=== PATIENT | male | born 1960 | race Caucasian/White ===

== ENCOUNTER → 2017-05-29 14:37 | Outpatient (CLI) | payer OTHER, SELFPAY ==
--- NOTE | 2017-05-29 14:42 | RAD_ITS ---
STUDY: X-RAY CHEST REASON FOR EXAM: Male, 56 years old. Pain in the chest and clavicle area times one week TECHNIQUE: PA and lateral views of the chest. COMPARISON: None. FINDINGS: Mildly elevated right hemidiaphragm. The lungs are clear and expanded. There is no demonstrated pleural abnormality. Normal size heart. Normal mediastinum and maru. Normal visualized pulmonary arteries. Normal visualized aortic arch and descending thoracic aorta. Normal visualized thoracic spine. Normal visualized ribs, clavicles, and shoulders. There is no demonstrated abnormality of the visualized soft tissue structures of the upper abdomen. RAD/Chest PA and Lateral IMPRESSION: No acute cardiopulmonary disease Electronically Signed: Radames Hung DO at 13:34 EDT Tel , Service support ,
--- NOTE | 2017-05-29 14:58 | RAD_ITS ---
STUDY: X-RAY - LEFT CLAVICLE REASON FOR EXAM: Male, 56 years old. Chest/clavicle pain for one week. TECHNIQUE: 2 view(s) of the clavicle. COMPARISON: None. FINDINGS: Normal clavicle. There is borderline degenerative arthrosis of the acromioclavicular joint without inferior osseous prominence. Normal visualized sternoclavicular articulation. Normal visualized pulmonary apex. 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 Electronically Signed: Franklin Urban MD at 19:29 EDT , Service support ,
[2017-05-29 17:09] LABS: Alkaline Phosphatase 105 U/L (45-117)
== END ==
PROVIDERS: Family Provider Family Medicine; PCP Family Medicine; Visit Provider Family Medicine
DX: M89.8X1 Other specified disorders of bone, shoulder (principal)
CPT/HCPCS: 36415; 71046; 73000; 84075

== ENCOUNTER → 2017-11-05 06:19 | Outpatient (CLI) | payer OTHER, SELFPAY ==
--- NOTE | 2017-11-05 16:58 | STRESSREP ---
Stress Test Report Exercise myocardial perfusion stress test. 56-year-old man with a history of chest pain. Medications: Losartan hydrochlorothiazide Aleve. Stress protocol: Resting EKG demonstrates normal sinus rhythm with a rate of 63 bpm normal intervals and noted resting blood pressure is 110/78 mmHg. Patient exercised according to regular Bill protocol for total duration of 7 minutes and 16 seconds maximum heart rate was 150 bpm which was 90% of maximum predicted heart rate. The maximum workload was 8.9 metabolic equivalents. The patient maintained sinus rhythm throughout the recording. At rest there were upsloping changes noted at peak exercise upsloping EKG changes were noted less than 1 mm with no evidence of depression suggest ischemia the resting blood pressure is 110/78 peak blood pressure 164/80 mmHg. No clinical angina was noted. Myocardial perfusion protocol. 14.4 mCi of technetium 99m sestamibi was injected at rest. Patient exercised according to regular Bill protocol for 7 minutes and 16 seconds attaining 90% of maximum predicted heart rate. Peak exercise 44.7 mCi of technetium 99m sestamibi was injected stress images were obtained stress and rest images were reconstructed and compared in the short axis vertical and horizontal long axis. Gated images were also obtained Perfusion SPECT analysis: Review of the stress images demonstrate normal uptake of tracer noted on his myocardium the resting images similarly demonstrate normal uptake of tracer noted on his myocardium. No areas of reversibility and is just ischemia no previous infarct is noted. Gated SPECT analysis: The gated ejection fraction is noted to be 66%. No wall motion abnormalities are present. Conclusion: Normal exercise myocardial perfusion stress test at a high workload. No clinical angina noted. Good functional capacity. No ischemia present.
== END ==
PROVIDERS: Family Provider Family Medicine; PCP Family Medicine; Visit Provider Family Medicine
DX: R06.09 Other forms of dyspnea (principal)
CPT/HCPCS: 78452; 93017; A9500; A4216

== ENCOUNTER → 2017-12-10 09:04 | Outpatient (CLI) | payer OTHER, SELFPAY ==
--- NOTE | 2017-12-10 09:11 | RAD_ITS ---
STUDY: X-RAY - LUMBOSACRAL SPINE REASON FOR EXAM: Male, 56 years old. Fusion surgery 10 years ago. Fall a couple weeks ago now with low back and bilateral leg pain getting worse. TECHNIQUE: 6 view(s) of the lumbosacral spine including lateral flexion and extension views. COMPARISON: None FINDINGS: Normal lumbar lordosis. There is no substantial scoliosis. There is normal alignment of the vertebrae. Postoperative changes of posterior lumbar fusion L4-L5. Bilateral rods, pedicle screws and prosthetic disks. There may be 1 mm of anterolisthesis L3 on L4 in flexion. Otherwise no significant motion in flexion or extension. Normal vertebral bodies and endplates. Normal disc space heights. Normal bilateral sacral ala, sacroiliac joints, and visualized sacrum. Normal visualized soft tissue structures. RAD/L/S Spine Comp/w Bending Views IMPRESSION: Postoperative changes of posterior lumbar fusion L4-L5. Possible minimal anteriorlisthesis L3 on L4 in flexion. Electronically Signed: Deni Thornton MD at 3:33 EDT , Service support ,
== END ==
PROVIDERS: Family Provider Family Medicine; PCP Family Medicine
DX: M96.1 Postlaminectomy syndrome, not elsewhere classified (principal); M54.17 Radiculopathy, lumbosacral region
CPT/HCPCS: 72114

== ENCOUNTER → 2017-12-31 12:51 | Outpatient (CLI) | payer OTHER, SELFPAY ==
[2017-12-31 13:01] LABS: Mucous, Urine 0 SEEN /hpf (<or=2+); Red Blood Cells-Urine 0 SEEN /hpf (0-5); Squamous Epithelial Cells - UA 0 SEEN /hpf (0-5)
[2017-12-31 13:04] LABS: Color, Urine Yellow (Yellow); Glucose, Dipstick Normal (Normal); Ketone-Dipstick Negative (Negative); Leukocyte Esterase-Dipstick 25 /ul (Negative); Nitrite-Dipstick Negative (Negative); Occult Blood-Urine Negative /ul (Negative); Protein-Dipstick Negative (Negative); Urine Bilirubin Dipstick Negative (Negative); Urine Clarity Clear (Clear); Urine Urobilinogen Normal (Normal); Urine pH 6.5 (5.0 - 8.0)
[2017-12-31 13:22] LABS: Bacteria RARE /hpf (None Seen); White Blood Cells 0-5 SEEN /hpf (0-5)
== END ==
PROVIDERS: Family Provider Family Medicine; PCP Family Medicine; Referring Provider Nurse Practitioner Family; Visit Provider Nurse Practitioner Family
DX: R10.9 Unspecified abdominal pain (principal); R30.0 Dysuria
CPT/HCPCS: 81001; 87077; 87086; 87088; 87186

== ENCOUNTER → 2018-02-04 07:28 | Outpatient (CLI) | payer OTHER, SELFPAY ==
[2018-01-22 13:05] VITALS: BMI 34.7
--- NOTE | 2018-02-04 07:32 | CT_ITS ---
STUDY: CT MAXILLOFACIAL SINUSES REASON FOR EXAM: Male, 57 years old. Chronic ethmoid sinusitis. RADIATION DOSAGE (If Supplied By Facility): CTDIvol = ( 33.06 ) mGy, DLP = ( 916.49 ) mGycm TECHNIQUE: The patient was scanned in a multi detector CT scanner. High resolution axial imaging was performed without the administration of intravenous contrast material. Sagittal and coronal images were reconstructed. Individualized dose optimization techniques were used for this CT. COMPARISON: None. FINDINGS: FRONTAL SINUSES: Normal aeration, without mucosal inflammatory disease. ETHMOIDAL SINUSES: Normal aeration, without mucosal inflammatory disease. MAXILLARY SINUSES: There is opacification of the left maxillary sinus with ossification within it suggestive of chronic maxillary sinusitis. Mucosal thickening along the inferior aspect of the right maxillary sinus. SPHENOIDAL SINUSES: Normal aeration, without mucosal inflammatory disease. There is compromise of the left maxillary infundibulum due to the mucosal thickening. Normal bilateral middle turbinates. Normal bilateral inferior turbinates. Normal midline nasal septum. There is patency of the bilateral nasal airways. The visualized osseous structures are normal. The visualized bilateral orbital contents are normal. CT/Sinus/Facial Bone IMPRESSION: Complete opacification of the left maxillary sinus suggestive of chronic sinusitis mucosal thickening of the right maxillary sinus. Electronically Signed: Alphonso Gil MD at 14:40 EST Tel [phone], Service support ,
--- OUTSIDE RECORDS SUMMARY | 2018-03-23 05:36 | XMS RPT_ITS ---
:1960 Author Organization [facility] Support Name Relationship Address Phone [facility] Unavailable [address] + [place] [address] ANDREA BEAVERS Unavailable [address] + [place] [address] Andrea Beavers Unavailable Unavailable + [facility] Unavailable [address] + [place] [address] ANDREA BEAVERS Unavailable [address] + [place] [address] [facility] Unavailable [address] + [place] [address] ANDREA BEAVERS Unavailable [address] + [place] [address] [facility] Unavailable [address] + [place] [address] ANDREA BEAVERS Unavailable [address] + [place] [address] [facility] Unavailable [address] + [place] [address] ANDREA BEAVERS Unavailable [address] + [place] [address] [facility] Unavailable [address] + [place] [address] ANDREA BEAVERS Unavailable [address] + [place] [address] [facility] Unavailable [address] + [place] [address] JAKY BEAVERSNN Unavailable [address] + [place] [address] [facility] Unavailable [address] + [place] [address] JAKY BEAVERSNN Unavailable [address] + [place] [address] [facility] Unavailable [address] + [place] [address] JAKY BEAVERSNN Unavailable [address] + [place] [address] [facility] Unavailable [address] + [place] [address] ANDREA BEAVERS Unavailable Unavailable + [facility] Unavailable [address] + [place] [address] ANDREA BEAVERS Unavailable Unavailable + [facility] [place] . + ., [place] . [place]REA BEAVERS Unavailable . + ., [place] . [facility] [place] . + ., [place]REA BEAVERS Unavailable . + ., [place] [facility] [place] . + ., [place] . ANDREA BEAVERS Unavailable Unavailable [phone] [facility] [place] . + ., [place] ANDREA BEAVERS Unavailable . [phone] ., [place] . Care Team Providers Name Role Kathryn HERNANDEZ DAVID GERBER Attending Unavailable PROVIDER, UNKNOWN Referring Unavailable Erlin Bella Primary Care Unavailable Ashwin Herbert Attending Unavailable Erlin Bella Primary Care Unavailable Ashwin Herbert Attending Unavailable Ashwin Herbert Referring Unavailable Erlin Bella Primary Care Unavailable Kush Go HAND SHOE CUTTER-C Attending Unavailable GoKush olivarez HAND SHOE CUTTER-C Referring Unavailable Brown, Erlin Primary Care Unavailable GoKush HAND SHOE CUTTER-C Attending Unavailable Brown, Erlin Referring Unavailable EDIE GILBERT Attending Unavailable EDIE GILBERT Referring Unavailable Brown, Erlin Primary Care Unavailable Brown, Erlin Attending Unavailable Brown, Erlin Referring Unavailable Brown, Erlin Primary Care Unavailable Brown, Erlin Attending Unavailable Brown, Erlin Referring Unavailable Brown, Erlin Primary Care Unavailable Christa Kiser Attending Unavailable Brown, Erlin Referring Unavailable Brown, Erlin Primary Care Unavailable Herbert, Ashwin Attending Unavailable Herbert, Ashwin Referring Unavailable Brown, Erlin Primary Care Unavailable Brown, Erlin Attending Unavailable Brown, Erlin Referring Unavailable Brown, Erlin Primary Care Unavailable Brown, Erlin Attending Unavailable Brown, Erlin Primary Care Unavailable GoKush olivarez HAND SHOE CUTTER-C Attending Unavailable Brown, Erlin Referring Unavailable Silvestre Ross Attending Unavailable Brown, Erlin Referring Unavailable Kalpesh Vaca Attending Unavailable DeHorta, Ashwin Referring Unavailable Brown, Erlin Attending Unavailable Brown, Erlin Referring Unavailable PROBLEMS PROBLEMS DATE TYPE CONDITION / CODE ATTENDING STATUS SOURCE 03/06/2018 Admitting Spondylolysis, INKROTT, Active [facility] Diagnosis lumbar region / [facility]ID System M43.06(ICD-10) [facility] Repository 03/06/2018 Admitting Low back pain / INKROTT, Active [facility] Diagnosis M54.5(ICD-10) DAVID System [facility] Repository 03/06/2018 Admitting Arthrodesis status / INKROTT, Active [facility] Diagnosis Z98.1(ICD-10) [facility] System [facility] Repository 03/12/2018 Unknown Z01.810 - Encounter Kalpesh Vaca Active [facility] for preprocedural [facility] Hospital examination / Repository Z01.810(ICD-10) 01/22/2018 Unknown J32.9 - Chronic Go, Kush Active [facility] sinusitis, HAND SHOE CUTTER-C Community unspecified / Hospital J32.9(ICD-10) Repository 12/31/2017 Unknown R10.9 - Unspecified Go, Kush Active [facility] abdominal pain / HAND SHOE CUTTER-C Community R10.9(ICD-10) Hospital Repository 12/31/2017 Unknown R30.0 - Dysuria / Go, Kush Active [facility] R30.0(ICD-10) HAND SHOE CUTTER-C Community Hospital Repository 12/31/2017 Unknown N20.0 - Calculus of Kush Go Active [facility] kidney / HAND SHOE CUTTER-C [facility] N20.0(ICD-10) Hospital Repository 12/10/2017 Unknown M96.1 - EDIE GILBERT Active [facility] Postlaminectomy [facility] syndrome, not Hospital elsewhere classified Repository / M96.1(ICD-10) 12/10/2017 Unknown M54.17 - EDIE GILBERT Active [facility] Radiculopathy, [facility] lumbosacral region / Hospital M54.17(ICD-10) Repository 12/03/2017 Unknown R06.09 - Other forms Vandana, Silvestre Active [facility] of dyspnea / Community R06.09(ICD-10) Hospital Repository 05/29/2017 Unknown M89.8X1 - Other Erlin Bella Active [facility] specified disorders Community of bone, shoulder / Hospital M89.8X1(ICD-10) Repository PROCEDURES PROCEDURES No Procedure Records FoundRESULTS RESULTS PT D/C SUMMARY (1) Observed: 03/11/2018 Status: F Source: [place] 9:43 AM [facility] REPOSIT[facility] [address] [place] [address] / REHABILITATION SERVICES DISCHARGE SUMMARY MR#: [id number] Acct: [id number] Name: CHI GONZALEZ Rep #: [id number] : 1960 57 From: Ashwin Jj DPT, OCS, CSCS Referring DrDean: Erlin Bella DO Status: REG RCR Insurance: [employer] SELF PAY INSURANCE HP - PT D/C Summary It has been my pleasure to treat CHI GONZALEZ under orders from Erlin Bella DO, for the diagnosis of LB radiculopathy. for a total of 10 visit(s). Discharge Date: 03/07/18 Please see the following information for a summary of their discharge status. - Subjective Subjective: Will have CT scan results soon. Feels more flexible from the water btu numbness in B legs from knees down has not changed at all. Pain is 5- 6/10 in LB constantly. About the same as he was but does feel more flexible. sleep is not great, wakes up every couple hours. 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 Basic aDLs are OK, has to be careful walking on uneven gorund. - Pain LBP Pain Intensity (Out of 10): 6 BLEs Pain Intensity (Out of 10): 5 - Overall Improvement % Improvement: 0 - Objective Objective/Function: 4-/5 hs and knee ext strength B, 4/5 ankle DF. Steps are reciprocal without rail but weak. OVERALL PATIENT BACK ROM SLIGHTLYT BETTER BUT HAS NOT HELPED WEAKNESS, PAIN OR NUMBNESS. - Goals Goal 1:: Patient show only moderate limitation in LB ROM without increased pain Goal Progress: Goal Met Goal 2:: Patient show 4/5 stregnth in LE and feel 50% stronger overall. Goal Progress: Not Progressing Goal 3:: Sleep withotu waking at night due to pain. Goal Progress: Not Progressing Goal 4:: I approp HEP to minimize future problems or fulfill requirement for next approp medical step. Goal Progress: Goal Met, stretching. - Plan Plan: D/C, BACK TO DOCTOR FOR NEXT STEP. - D/C Information Discharge Comments: Recommend back to doctor for next step. If there are questions or concerns regarding this patient's physical therapy, please feel free to call me at [phone]. Thank you for the referral of this patient. Sincerely, Ashwin Jj DPT, OCS, CSCS <Electronically signed by Ashwin Jj DPT, MALIHA, CSCS> 03/11/18 0943 CC: Erlin Bella DO EBG Signed CT SPINE LUMBAR W/O Observed: 03/07/2018 Status: F Source: [employer] 10:36 AM SYSTEM REPOSITORY Patient Name: CHI GONZALEZ CT Exam Date/Time 03/06/2018 13:27:[address] Spine Lumbar w/o Contrast Ordering Physician MD MARY, DAVID GERBER Accession Number [id number] CPT4 Codes 48880 () Reason For Exam Lower back Pain Report Examination: CT lumbar spine Clinical Indication: Low back pain, history of surgery, lumbar radiculopathy, leg numbness Comparison: None Findings: Serial axial 1 mm images obtained through the lumbar spine without contrast. Coronal, sagittal and axial images reconstructed. Normal bone mineralization. No evidence of fracture or spondylolisthesis. There is minimal lumbar levocurvature, less than 5 degrees. Transpedical screws and posterior fusion rods, intact seen at the L4-L5 level. There is evidence of discectomy and disc space grafting. Graft is incompletely mature. There is no solid osseous bridging along the disc space. There is partial osseous bridging seen along the right-sided facets although at least partial pseudarthrosis persists along the left-sided facets. No evidence of hardware loosening. There is laminectomy defect. There is unilateral right-sided spondylolysis with pars interarticularis defect. Left-sided pars grossly intact. There is no evidence of spinal canal stenosis. Suggestion of trace amount of annular disc bulge but no CT evidence of significant disc protrusion. Disc graft at L4-L5 does extend to the thecal sac anteriorly causing minimal mass effect on the right lateral recess. There is no significant foraminal narrowing. Atherosclerotic calcification abdominal aorta and iliac arteries. Impression: 1. Postsurgical changes posterior hardware fusion and laminectomy L4-L5 with discectomy and disc space grafting. Incomplete incorporation of the graft, incomplete bony fusion. No evidence of hardware failure. 2. Unilateral right-sided spondylolysis of L5. No significant associated listhesis. This is below the level of hardware. 3. Minimal L4-L5 graft retropulsion at the lateral recesses causing minimal mass effect on the right. Report Dictated on Final Dictated: 03/07/2018 10:36 am Dictating Physician: MD MULLER ANTHONY J Signed Date and Time: 03/07/2018 10:46 am Signed by: MD MULLER ANTHONY J Transcribed Date and Time: 03/07/2018 10:36 12 LEAD ELECTROCARDIOGRAM Observed: 02/19/2018 Status: F Source: [place] 2:52 PM [facility] REPOSITORY [facility] Cardiovascular Services [address] [place] [address] 12 Lead EKG 02/14/18 0638 MR#: [id number] Acct: [id number] Name: CHI GONZALEZ Rep #: [id number] : 1960 57 From: Kalpesh Vaca MD Attending Dr: Ashwin Herbert MD Status: DEP [facility] Ordering Dr: Ashwin Herbert MD Date: 02/14/18 Location: [facility] Sex: M C Admitted: Test Reason : PRE OP Blood Pressure : / mmHG Vent. Rate : 075 BPM Atrial Rate : 075 BPM P-R Int : 168 ms QRS Dur : 084 ms QT Int : 378 ms P-R-T Axes : 029 -10 -01 degrees QTc Int : 422 ms Normal sinus rhythm Normal ECG No previous ECGs available Confirmed by KALPESH VACA ([id number]), offline editor KARSTEN TRONCOSO ([id number]) on 02/19/2018 2:52:01 PM Referred By: Ashwin Herbert Confirmed By:KALPESH VACA 02/19/18 1452 Date Kalpesh Vaca MD CC: Erlin Bella DO; Ashwin Herbert MD Signed MISCELLANEOUS SPECIMEN Observed: 02/14/2018 Status: F Source: [facility] 7:30 AM [facility] RE[facility] Patient: CHI GONZALEZ : 1960 (57/M) Acct Num: [id number] Phys: Ashwin Herbert MD Unit Num: [id number] Loc: [facility] Specimen: [id number] Received: 02/14/18914 Spec Type: [facility] TISSUES 1 TISSUES: A. Maxilla, NOS B. Maxilla, NOS GROSS DESCRIPTION A - Received in fixative is one container labeled with the patient's name and designated left sinus contents. The specimen consists of multiple fragments of hemorrhagic soft tissue mixed with fragments of bone that in aggregate measure 5 x 3 x 0.3 cm. The entire specimen is submitted in two cassettes after decalcification. B - Received in fixative is one container labeled with the patient's name and designated right sinus contents. The specimen consists of multiple fragments of hemorrhagic soft tissue mixed with fragments of bone that in aggregate measure 3 x 2.5 x 0.3 cm. The entire specimen is submitted in one cassette after decalcification. / SJ:glenroy 02/14/18 TC:3 CPT: 96739 x2, 54899 x2 HEADER OPERATION: Endoscopic sinus nasal maxillary antrostomy with navigation PRE-OP DIAGNOSIS: Chronic maxillary sinusitis TISSUE SUBMITTED: A - Left sinus contents, B - Right sinus contents MICROSCOPIC DESCRIPTION Slides are reviewed. MICROSCOPIC DIAGNOSIS A. Left sinus contents, excision: Consistent with chronic sinusitis. Fragments of bone with no significant pathologic change. B. Right sinus contents, excision: Consistent with chronic sinusitis. Fragments of bone with no significant pathologic change. AM:glenroy 02/21/18 Signed Chad Kingsley, 02/21/18 <signature on file> Performed By: #### PMISC #### [facility] [address] [place], [address] INITAL EVALUATION (1) Observed: 02/14/2018 Status: F Source: [place] - PT 6:45 AM [facility] REPOS[facility] [address] [place] [address]. [address] [place] [address] Fax REHABILITATION SERVICES INITIAL EVALUATION MR#: [id number] Acct: [id number] Name: CHI GONZALEZ Rep #: [id number] : 1960 57 From: Ashwin Jj DPT, OCS, CSCS Referring Dr.: Erlin Bella DO Status: REG RCR Insurance: [employer] SELF PAY INSURANCE Patient's Visit Information CHI GONZALEZ is a 57 year old M referred to Physical Therapy by Erlin Bella DO with a diagnosis of LB radiculopathy.. Date of Evaluation: 02/12/18 Physical Therapist: Ashwin Jj DPT, OCS, CSCS - Visit Plan Frequency: 2-3x /Week Duration: 4-6 Weeks Plan: 2-3x/week for 4-6 weeks for: LE adn core strength. HS and quad and gastroc stretching. LB ROM - Subjective Findings: Done MRI and has 2 cysts adn bulging discs adn needs surgery...has to do this first. L3/L4 uis the problem. Has h/o fusion L4/5 10 years ago. Was doing OK until a year and a half ago when he got numbness in legs and feet insidiously. Has LBP in middle and to lower back. Gets to 7/10 constant. Gets worse to 9/10 with bending and lifting and carrying. Sleep is not good due to pain and hasn't been for a year. Has seen chiropractor and has not helped with numbness in legs. 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 Worse after work. Standing and sitting. Stands to zaria and sits to foil. Basic ADLs are OK, avoids housework due to LBP. Gardening and yard work are hobbies and has had to stop them due to LBP. Had to stop bike riding. Trouble knowing when urinating stops and doctor aware of this. - Pain LBP Pain Intensity (Out of 10): 7 Pain Intensity Range: 7, 9 Comment: had pain for 12 years - Objective R wrist fused solid from previous injury. Walks slowly but I, trasnfers I with UE. Rolls slow but able. Posture is hunched forward adn flat lordosis in lumbar and c/s. L/S aROM ext is max limited adn centrall pain. B SB mod limited. Flexion is max limited and hesitant. Sensation is diminished to gross light touch in B LE form knees down. reflexes patella and achilles 0/3 B. Weakness present in DF, knee ext at 3+ and knee flexion at 4- B, Patient has hard time breonna any of these muscles for any length of time. Very weka. Steps require rail and show weakness L >R with some minor trendelenberg. + slump and SLR for posterior pain on R side into LB. NE on numbness or strength today with ROM testing. - Goals Goal 1:: Patient show only moderate limitation in LB ROM without increased pain Goal Time Frame: 4-6 Weeks Goal 2:: Patient show 4/5 stregnth in LE and feel 50% stronger overall. Goal Time Frame: 4-6 Weeks Goal 3:: Sleep withotu waking at night due to pain. Goal Time Frame: 4-6 Weeks Goal 4:: I approp HEP to minimize future problems or fulfill requirement for next approp medical step. Goal Time Frame: 4-6 Weeks - Rehabilitation Potential Physical Therapy Diagnosis: LBP andd radiculopathy. Rehabilitation Potential: Poor - Anticipated Interventions Patient/Client Instruction: Educate patient on: Condition, Plan of Care For the Purpose of:: To decrease pain, To increase tolerance to activity/condition/position, To improve ability of physical actions for home/community/work/leisure Therapeutic Exercise to Include: Strength training, Flexibilty training, In an aquatic setting, Passive ROM, Active ROM, Dynamic Lumbar Stabilization For the Purpose of:: To increase ROM, To improve muscle performance and motor function, To increase tolerance to activity/condition/position, To improve ability of physical actions for home/community/work/leisure Thank you for the opportunity to evaluate your patient. For Medicare and Medicare HMO plans, please review the plan of care and approve it. It will need to be FAXED BACK to us at [phone] for Medicare purposes. For Medicare only, by signing this I certify the plan of care. Please let me know if there are questions or concerns regarding this plan of care. Physician Signature: Date: <Electronically signed by Ashwin Jj DPT, OCS, CSCS> 02/14/18 0645 CC: Erlin Bella DO EBG Signed BASIC METABOLIC Collected: 02/14/2018 Status: F Source: [facility] PROFILE (BMP) 6:15 AM [facility] REPOSIT[facility] TYPE CODE TESTS RESULT OUT OF RANGE REFERENCE UNITS LAB L501.0100 74-106 mg/dL High GLU 112 Result Comment: Fasting Glucose result from 100 to 125 mg/dL suggests IMPAIRED HOMEOSTASIS per A.D.A. criteria. Please note revised GLUCOSE reference range effective 2017. LAB L501.1000 7-18 mg/dL Normal BUN 18 LAB L501.1100 0.70-1.30 mg/dL Normal CREAT,SERUM 0.94 Result Comment: The validity of the calculated GFR AND GFRAA in patients over 70 years has not been determined. Clinical correlation is essential. LAB L501.1110 >60 mL/min Normal EST GFR 88 Result Comment: Non- GFR Calc LAB L501.1115 >60 mL/min Normal EST GFR - AA 107 Result Comment: GFR Calc LAB L501.1255 ml/min Normal Estimated CRCL 93.46 LAB L501.1300 10-20 RATIO Normal BUN/CRE 19.2 LAB L501.2200 8.5-10 mg/dL Normal .1 CA 8.5 LAB L501.5300 136-14 mmol/L Normal 5 NA 142 LAB L501.5600 3.5-5. mmol/L Normal 1 K 3.9 Result Comment: Moderate Hemolysis, Result may be falsely increased. LAB L501.5900 98-107 mmol/L High CL 109 LAB L501.6100 21.0-32.0 mmol/L Normal CO2 24.0 LAB L501.6200 5-15 Normal 9 GAP Performed By: #### L500.2500 #### [facility] [address] [place], [address] SINUS/FACIAL BONE Observed: 02/04/2018 Status: F Source: [place] 7:32 AM [facility] REPOS[facility] Imaging Services [address] [place] [address] Sinus/Facial Bone MR#: [id number] Acct: [id number] Name: CHI GONZALEZ Rep #: [id number] : 1960 M 57 From: Alphonso Gil MD PCP: Erlin Bella DO Status: REG CLI Study: Sinus/Facial Bone Date of Exam: 02/04/18 Exam# [id number] Ordering Dr: Ashwin Herbert MD STUDY: CT MAXILLOFACIAL SINUSES REASON FOR EXAM: Male, 57 years old. Chronic ethmoid sinusitis. RADIATION DOSAGE (If Supplied By Facility): CTDIvol = ( 33.06 ) mGy, DLP = ( 916.49 ) mGycm TECHNIQUE: The patient was scanned in a multi detector CT scanner. High resolution axial imaging was performed without the administration of intravenous contrast material. Sagittal and coronal images were reconstructed. Individualized dose optimization techniques were used for this CT. COMPARISON: None. FINDINGS: FRONTAL SINUSES: Normal aeration, without mucosal inflammatory disease. ETHMOIDAL SINUSES: Normal aeration, without mucosal inflammatory disease. MAXILLARY SINUSES: There is opacification of the left maxillary sinus with ossification within it suggestive of chronic maxillary sinusitis. Mucosal thickening along the inferior aspect of the right maxillary sinus. SPHENOIDAL SINUSES: Normal aeration, without mucosal inflammatory disease. There is compromise of the left maxillary infundibulum due to the mucosal thickening. Normal bilateral middle turbinates. Normal bilateral inferior turbinates. Normal midline nasal septum. There is patency of the bilateral nasal airways. The visualized osseous structures are normal. The visualized bilateral orbital contents are normal. CT/Sinus/Facial Bone IMPRESSION: Complete opacification of the left maxillary sinus suggestive of chronic sinusitis mucosal thickening of the right maxillary sinus. Electronically Signed: Alphonso Gil MD at 14:40 EST Tel [phone], Service support , CC: Erlin Bella DO; Ashwin Herbert MD Electric Cell Tender: Signed INTERNAL MEDICINE Observed: 01/23/2018 Status: F Source: [place] OFFICE VISIT 9:05 AM [facility] [address] [place] [address] [address] [place] [address] OFFICE VISIT Date of Service: 01/22/18 MR#: [id number] Acct: [id number] Name: CHI GONZALEZ Marvin Rep #: [id number] : 1960 Provider: Kush Go NP Age/Sex: 57/M Location: [facility].WARN[facility] Status: Signed Intake Vital Signs01/22/18 Height 5 ft 11 in Intake Visit Reasons: SINUS INF Chief Complaint: Sinus Inf. and coughing up blood Is patient in pain?: Yes (both legs, lower) Allergies No Known Allergies Allergy (Unverified 12/31/17 11:10) Medications acetaminophen 500 mg capsule 500 mg PO Q6H PRN 05/29/17 [History Confirmed 01/22/18] cetirizine 10 mg capsule 10 mg PO QDAY 05/29/17 [History Confirmed 12/31/17] losartan 100 mg-hydrochlorothiazide 12.5 mg tablet 1 tab PO QDAY 05/29/17 [History Confirmed 01/22/18] lysine 500 mg tablet 500 mg PO QDAY 05/29/17 [History Confirmed 01/22/18] naproxen sodium 220 mg tablet 220 mg PO BID 05/29/17 [History Confirmed 01/22/18] pyridoxine (vitamin B6) 100 mg tablet 100 mg PO ONCE 05/29/17 [History Confirmed 01/22/18] ascorbic acid (vitamin C) 500 mg capsule mg PO cap 12/31/17 [History Confirmed 12/31/17] tamsulosin 0.4 mg capsule 0.4 mg PO DAILY #30 cap 12/31/17 [Rx Confirmed 01/22/18] ashwagandha PO 01/22/18 [History Confirmed 01/22/18] benzonatate 100 mg capsule 100 mg PO TID PRN #30 cap 01/22/18 [Rx Confirmed 01/22/18] budesonide-formoterol HFA 80 mcg-4.5 mcg/actuation aerosol inhaler 2 puff INHALATION BID PRN g 01/22/18 [History] fluticasone 50 mcg/actuation nasal spray,suspension 2 spray INTRANASAL DAILY #15.8 g 01/22/18 [Rx Confirmed 01/22/18] white mulberry PO 01/22/18 [History Confirmed 01/22/18] PFSH Medical History History of pneumonia (Chronic) Asthma (Chronic) Seasonal allergies (Chronic) Surgical History History of appendectomy (Acute) History of carpal tunnel repair (Acute) History of hand surgery (Acute) History of lumbar fusion (Acute) Family History Father Asthma Bone cancer Myocardial infarction Mother Myocardial infarction Hypertension Grandmother Myocardial infarction Grandmother Myocardial infarction Grandfather Myocardial infarction CVA (cerebral vascular accident) Brother Myocardial infarction Hypertension Grandfather Parkinson disease Social History Smoking Status: Never smoker alcohol intake: current alcohol intake frequency: holidays/special occasions only substance use type: does not use what type of physical activity do you participate in: none HPI HPI Chief Complaint: Sinus Inf. and coughing up blood Details: CHI GONZALEZ, is a 57 M who presents to the office today for cough and nasal discharge. Patient presents the office today for recurrent problem of sinus congestion. The patient states this morning he had a productive cough with red tinged mucus, he does admit to having dry nasal passageways and thinks he may have had a nosebleed. He denies any fever or rash. He states this is been an ongoing problem for the last 3 months at its worst but this problem has been ongoing for years. he admits to nasal discharge and congestion. He states he has taken antibiotics for the last 3 months for not only upper respiratory infections but also for urinary tract infection, these antibiotics have consisted of azithromycin, ciprofloxacin, and doxycycline. He states he has completed course of the medications and his symptoms never entirely resolved. He does have a history of asthma, seasonal allergies and recurrent sinusitis. He also admits to having nasal surgery in the past by ent, but has not been able to make an appt with ENT. He admits to not taking his prescribed Symbicort as it bothered his respiratory effort. He states he is breathing better without the Symbicort. The patient otherwise denies any fever, chills, nausea, vomiting, shortness of breath, chest pain or pressure, palpitations, orthopnea, lower extremity edema, syncope or presyncopal episodes. ROS Const Constitutional: No weight change, body ache, chills, fatigue, sleep problems, fever(s), change in appetite, snoring, weakness, frequent falls, headache(s) or excessive sweating Eyes Eyes: No change in vision, eye pain, light sensitivity or blurry vision ENT ENT: Positive for nasal congestion, sore throat, sinus pain, sinus pressure and nasal discharge; no headache(s), abnormal hearing, ear pain, tinnitus or neck pain Resp Respiratory: Positive for cough Cough: Yes productive; no snoring, shortness of breath or wheezing Cardio Cardiology: No excessive sweating, chest pain at rest, chest pain with exertion, shortness of breath, dyspnea on exertion, palpitations, orthopnea or lightheadedness Gastro GI: No abdominal pain, change in bowel habits, constipation, diarrhea, vomiting, nausea/dyspepsia or cramping Genitourinary Male: No painful urination, urinary incontinence, urinary frequency, urinary urgency, blood in urine, testicle pain or other Musc Musculoskeletal: Positive for numbness (both legs) and tingling; no neck pain, abnormal walking, joint pain, back pain, limited range of motion or muscle weakness Skin Skin: No redness, dry skin, itching, lesions, wounds or rash Neuro Neurology: Positive for numbness (both legs) and tingling; no weakness, frequent falls, headache(s), abnormal hearing, abnormal walking, abnormal speech, dizziness or memory loss Psych Psychiatric: No change in appetite, No memory loss, No anxiety, No depression, No Thoughts of harming yourself/Others Endo Endocrine: No fatigue, excessive sweating, cold intolerance, increased thirst/drinking, heat intolerance, flushing or increased hunger Aller/Imm Allergy/Immunologic: No wheezing, itchy eyes, hives or seasonal allergy symptoms Andrea/Lymp Hematologic/Lymphatic: No easy bleeding, easy bruising or enlarged lymph nodes Exam Const General: cooperative, comfortable, no acute distress Nutritional Appearance: average body habitus, well nourished Orientation: alert, oriented x3 Limitations: mental status not altered [facility] Head: normal to inspection, normocephalic, atraumatic Ears: hearing grossly normal bilaterally, TM's normal bilaterally Nose: external nose normal, nasal discharge, mucous membranes and turbinates abnormal (scabbed over areas b/l nares) erythematous and boggy Face and sinus: normal facial exam, sinus tenderness frontal, ethmoid and maxillary Mouth: oral mucosae normal Teeth and gingiva: dentition normal Throat: posterior oropharynx abnormal cobblestoning and edema; Negative for no exudates, postnasal drainage Eyes General: appearance normal, both eyes and all related structures Neck Neck: no lymphadenopathy Resp Effort AND Inspection: normal respiratory effort, able to speak in complete sentences, no nasal flaring, cough Quality of cough: actively coughing, no respiratory distress, no retractions Auscultation: Bilateral: Clear to Auscultation Cardio Palpation: normal PMI Rate: regular rate Heart Sounds: S1 normal, S2 normal, normal S1 and S2, no click, no gallops, no murmurs, no rubs GI Inspection: normal to inspection Auscultation: normal bowel sounds, no hyperactive bowel sounds, no hypoactive bowel sounds Palpation: soft, no hepatosplenomegaly Musc Musculoskeletal: No joint tenderness, decreased ROM or muscle weakness Skin General: no rashes or lesions noted, elasticity normal, turgor normal Lesions: no lesions Rashes: no rashes Neuro General: alert, awake, oriented x3, CN's II-XI intact bilaterally Speech: speech normal Gait: normal gait Motor: muscle tone normal throughout Extrem General: normal to inspection, normal gait, no edema, no pedal edema Psych Appearance: grossly normal Mental Status: mental status grossly normal Affect: normal affect Attitude: cooperative Thought Process: normal Assessment AND Plan Problems 1. Recurrent sinusitis J32.9 2. Cough R05 Plan Patient presents today for a recurrent maxillary and ethmoidal sinusitis. He states he began coughing approximately 4 days ago. He states this morning when he coughed it was accompanied with a blood-tinged sputum. This was most likely d/t his recent nosebleed and dry nasal mucosa. He is actively coughing on exam. His nasal passages are edematous, boggy, red and inflamed. Advised him to institute saline rinses for his nasal passages also use Flonase as prescribed. Will refer to ENT for further follow-up, as this has been a continuing problem for him for over 3 months and has had problems with his sinuses in the past. Has also been treated with three antibiotics over the last 3 months as well. Orders Referrals: Medications New: Plan Detail Follow Up As previously scheduled or sooner Coding Level of Care Code Off vis,est,level 3 Diagnoses Recurrent sinusitis J32.9 Cough R05 01/23/18 0905 <Electronically signed by Kush CAMARENA> Date Kush CAMARENA Cosigner Signature: Date (if applicable) CC: INTERNAL MEDICINE Observed: 01/02/2018 Status: F Source: YOGI OFFICE VISIT 9:40 AM [facility] [place] [address] OFFICE VISIT Date of Service: 12/31/17 MR#: [id number] Acct: [id number] Name: CHI GONZALEZ Rep #: [id number] : 1960 Provider: Kush Go NP Age/Sex: 57/M Location: [facility] [place].[facility] Status: Signed Intake Vital Signs12/31/17 Height 5 ft 11 in 12/31/17 Weight: 247 lb 12/31/17 Body Mass Index (BMI) 34.4 12/31/17 Blood Pressure 136/87 H 12/31/17 Blood Pressure Location Lt brachial Intake Visit Reasons: SINUS INF, KIDNEY STONE Chief Complaint: Sinus Inf AND kidney stone Is patient in pain?: Yes (Left side - Back) Pain scale (1- 10): 6 Allergies No Known Allergies Allergy (Unverified 12/31/17 11:10) Medications acetaminophen 500 mg capsule 500 mg PO Q6H PRN 05/29/17 [History Confirmed 12/31/17] cetirizine 10 mg capsule 10 mg PO QDAY 05/29/17 [History Confirmed 12/31/17] losartan 100 mg-hydrochlorothiazide 12.5 mg tablet 1 tab PO QDAY 05/29/17 [History Confirmed 12/31/17] lysine 500 mg tablet 500 mg PO QDAY 05/29/17 [History Confirmed 12/31/17] naproxen sodium 220 mg tablet 220 mg PO BID 05/29/17 [History Confirmed 12/31/17] pyridoxine (vitamin B6) 100 mg tablet 100 mg PO ONCE 05/29/17 [History Confirmed 12/31/17] budesonide-formoterol HFA 80 mcg-4.5 mcg/actuation aerosol inhaler 2 puff INHALATION BID #6.9 g 11/13/17 [Rx Confirmed 12/31/17] ascorbic acid (vitamin C) 500 mg capsule mg PO cap 12/31/17 [History Confirmed 12/31/17] codeine 10 mg-guaifenesin 100 mg/5 mL oral liquid See Rx Instructions PO Q6H PRN #120 ml 12/31/17 [Rx Confirmed 12/31/17] doxycycline monohydrate 100 mg tablet 100 mg PO BID #20 tab 12/31/17 [Rx Confirmed 12/31/17] tamsulosin 0.4 mg capsule 0.4 mg PO DAILY #30 cap 12/31/17 [Rx Confirmed 12/31/17] PFSH Medical History History of pneumonia (Chronic) Asthma (Chronic) Seasonal allergies (Chronic) Surgical History History of appendectomy (Acute) History of carpal tunnel repair (Acute) History of hand surgery (Acute) History of lumbar fusion (Acute) Family History Father Asthma Bone cancer Myocardial infarction Mother Myocardial infarction Hypertension Grandmother Myocardial infarction Grandmother Myocardial infarction Grandfather Myocardial infarction CVA (cerebral vascular accident) Brother Myocardial infarction Hypertension Grandfather Parkinson disease Social History Smoking Status: Never smoker alcohol intake: current alcohol intake frequency: holidays/special occasions only substance use type: does not use what type of physical activity do you participate in: none HPI HPI Chief Complaint: Sinus Inf AND kidney stone Details: CHI GONZALEZ, is a 57 M who presents to the office today for an acute complaint of recurrent sinus infection and kidney stones with left flank pain. He has a past medical history as listed above. The patient states that his frontal sinus pain, productive cough of yellow sputum, postnasal drainage and nasal congestion has been going on for approximately 4-5 days now has been progressively getting worse. He is concerned because he is leaving the [facility] and is going to be on a road trip vacation for 3 weeks. He states that he has had chronic problems with his sinuses and that he has been seen in the past by ENT and has had surgery to open up his sinuses in the past. He has not been seen by ENT lately. He states that he has tried Flonase in the past and this has not worked, he states that he typically gets antibiotics and cough syrup with codeine. He denies any sick contacts he denies any other aggravating or relieving factors The patient also notes that this past Saturday he passed 3 kidney stones in 3 weeks ago he passed a kidney stone as well. He states that he has a history of passing kidney stones in the past and that caused him to have a severe amount of flank pain. He did not go to the emergency room however. He states that he is still urinating without any difficulties but occasionally has burning. He denies any blood in the urine. He continues to have a 6 out of 10 achy dull left flank pain. He declines any imaging for his kidney stones, as he is leaving for vacation soon. He otherwise denies any fever, chills, nausea, vomiting, shortness of breath, chest pain or pressure, syncope or presyncopal episodes. ROS Const Constitutional: Positive for headache(s); no chills, fatigue, fever(s), frequent falls, malaise, weakness, sleep problems or change in appetite Eyes Eyes: No blurry vision, change in vision, double vision, discharge or visual disturbances ENT ENT: Positive for post nasal drip and headache(s); no abnormal hearing, ear pain, ear pressure, tinnitus or dizziness/vertigo Resp Respiratory: Positive for cough Cough: Yes non-productive; no shortness of breath or wheezing Cardio Cardiology: No chest pain at rest, chest pain with exertion, shortness of breath, dyspnea on exertion, generalized swelling, irregular heart rhythm, lightheadedness, orthopnea, fast heart rate or palpitations Gastro GI: No abdominal pain, change in bowel habits, constipation, diarrhea, nausea/dyspepsia or vomiting Genitourinary Male: Positive for burning urination and side pain (Left side ); no difficulty urinating, painful urination, urinary incontinence, urinary frequency, urinary urgency, urinary hesitancy, urinary retention, blood in urine, Frequent nighttime urination/ nocturia, sexual problems, testicle lump or testicle pain Musc Musculoskeletal: Positive for back pain (Left side), numbness and radiating pain into limb (Left thigh); no joint pain, joint swelling, limited range of motion, muscle weakness or tingling Skin Skin: No change in skin color, itching, rash or wounds Breast Breast: No breast lump or breast pain Neuro Neurology: Positive for numbness and headache(s); no frequent falls, weakness, abnormal hearing, tingling, unsteady gait/balance, dizziness, loss of vision, memory loss or visual disturbances Psych Psychiatric: No memory loss, No anxiety, No change in appetite, No depression, No Thoughts of harming yourself/Others Endo Endocrine: No fatigue, heat intolerance, increased thirst/drinking, increased hunger or increased urination Aller/Imm Allergy/Immunologic: No wheezing, itchy eyes or seasonal allergy symptoms Andrea/Lymp Hematologic/Lymphatic: No easy bleeding, easy bruising or enlarged lymph nodes Exam Const General: cooperative, comfortable, no acute distress Nutritional Appearance: average body habitus, well nourished Orientation: alert, oriented x3 Limitations: mental status not altered HENMT Head: normal to inspection Ears: hearing grossly normal bilaterally Nose: external nose normal, nasal discharge clear bilaterally, mucous membranes and turbinates abnormal erythematous bilaterally Face and sinus: normal facial exam, tenderness bilaterally forehead Mouth: oral mucosae normal Teeth and gingiva: dentition normal Throat: postnasal drainage Neck Neck: no lymphadenopathy Resp Effort AND Inspection: normal respiratory effort, able to speak in complete sentences, normal respiratory pattern, symmetric chest movement, no audible wheezes, no cough Auscultation: Bilateral: Clear to Auscultation Cardio Palpation: normal PMI Rate: regular rate Heart Sounds: S1 normal, S2 normal, normal S1 and S2, no click, no gallops, no murmurs, no rubs General: CVA tenderness on the right Musc Musculoskeletal: No muscle weakness Skin General: no rashes or lesions noted, elasticity normal, turgor normal Lesions: no lesions Rashes: no rashes Neuro General: alert, awake, oriented x3, CN's II-XI intact bilaterally Speech: speech normal Gait: normal gait Motor: muscle tone normal throughout Extrem General: normal to inspection, normal gait, no edema, no pedal edema Psych Appearance: grossly normal Mental Status: mental status grossly normal Affect: normal affect Attitude: cooperative Thought Process: normal Results [facility] Office Urine Color Yellow Last Edit by Ann Fonseca on 12/31/17 11:39 Assessment AND Plan 1. Recurrent sinusitis J32.9 Plan Patient does have a history of recurrent sinusitis and has acute on chronic sinusitis in the frontal region at this time. Discussed with him that I would like him to follow-up with a ENT. He was recently on an antibiotic and [place] of this year of azithromycin. He refuses to see an ENT at this time since he is leaving for vacation. We will start him on doxycycline, encourage the use of Flonase, will also give him cough syrup with codeine for his cough per patient request. Discussed red flag symptoms requiring urgent medical attention. Patient verbalized understanding. Discussed not driving while on the cough syrup with codeine 2. Cough R05 Plan Plan as above 3. Nephrolithiasis N20.0 Plan Per patient he did visualize passing 3 kidney stones and visualized passing a stone 3 weeks prior as well, specimen cup given to patient and informed him to keep kidney stone if he passes in the future as we can send to lab for evaluation. He does have significant CVA tenderness and left flank pain on exam, will start him on Flomax. We will also check a UA and culture given his dysuria that he is having. Discussed red flag symptoms of obstruction and kidney infection that warrant medical attention. Discussed with patient that if any of these occur while he is on vacation he should go to the emergency department or to an urgent care center. Patient verbalized understanding. Patient to follow-up after 3-week vacation. May continue with [id number] analgesics for pain relief. Defer imaging at this time. Orders Orders: 4. Dysuria R30.0 Plan Plan as above Orders Orders: Plan Detail Other Orders Orders: Other Medications New: Discontinued: pseudoephedrine-guaifenesin 60-600 mg (Mucinex D) Discontinued Reason1 tab PO BID PRN : Order Changed Follow Up In 4 weeks or sooner Coding Level of Care Code Off vis,est,level 4 Diagnoses Recurrent sinusitis J32.9 Cough R05 Nephrolithiasis N20.0 Dysuria R30.0 01/02/18 0940 <Electronically signed by Kush CAMARENA> Date Kush CAMARENA Cosigner Signature: Date (if applicable) CC: URINALYSIS, COMPLETE Collected: 12/31/2017 Status: F Source: YOGI 1:00 PM [facility] Order Comment: How was Urine Obtained? CLOTH BLEACHING SUPERVISOR TO SPECIFY TYPE CODE TESTS RESULT OUT OF RANGE REFERENCE UNITS LAB L400.3000 Yellow COLOR Normal Yellow LAB L400.3050 Clear Normal CLARITY Clear LAB L400.3200 Normal mg/dl Normal GLUCOSE, UR Normal LAB L400.3300 Negative mg/dL Normal BILIRUBIN URINE Negative LAB L400.3400 Negative mg/dl Normal KETONE UR Negative LAB L400.3465 1.002-1.030 Normal SP.GR. DIPSTX 1.010 LAB L400.3550 5.0 - 8.0 pH UR Normal 6.5 LAB L400.3600 Negative mg/dl PROT Normal DIPSTX Negative LAB L400.3700 Normal mg/dl Normal UROBILI Normal LAB L400.3750 Negative Normal NITRITE UR Negative LAB L400.3780 Negative /ul Normal OCCULT BLOOD-UR Negative LAB L400.3800 Negative /ul High LEUK 25 ESTERASE LAB L400.4050 0-5 /hpf WBC Normal 0-5 SEEN LAB L400.4100 0-5 /hpf 0 Normal RBC-UA SEEN LAB L400.4150 0-5 /hpf SQUAM 0 Normal EPI SEEN LAB L400.4300 None Seen /hpf Normal BACTERIA RARE LAB L400.4350 <or=2+ /hpf 0 Normal MUCUS, URINE SEEN Performed By: #### L400.0001 #### [facility] [address] [place], [place], [id number] Observed: 12/31/2017 Status: F Source: CARNEGIE CULTURE, URINE 1:00 PM [facility] RE[facility] Urine Culture ORGANISM 1: Enterococcus faecalis Roach Count >100,000 Enterococcus faecalis: REACTION Ampicillin $ <=2 S Benzylpenicillin NF 2 S Ciprofloxacin $ <=0.5 S Gentamicin SYN-S S Levofloxacin $ 0.5 S Linezolid $$$$ 2 S Nitrofurantoin $ <=16 S Streptomycin $ SYN-S S Tetracycline NF >=16 R Vancomycin $ 1 S (NF) indicates non-formulary drug at [facility]. Approval by Infectious Disease Specialist required before non-formulary drugs may be ordered and/or dispensed. * CLSI guidelines does not recommend testing of cephalosporins. This interpretation is deduced from Beta-lactam/penicillin results. Performed By: #### M100.0650 #### [facility] [address] [place], [place], [id number] L/S SPINE COMP/W Observed: 12/10/2017 Status: F Source: CARNEGIE BENDING VIEWS 9:11 AM [facility] RE[facility]ITORY [facility] Imaging Services [address] [place] [address] L/S Spine Comp/w Bending Views MR#: [id number] Acct: [id number] Name: CHI GONZALEZ Rep #: [id number] : 1960 M 56 From: Deni Thornton PCP: Erlin Bella DO Status: REG CLI Study: L/S Spine Comp/w Bending Views Date of Exam: 12/10/17 Exam# [id number] Ordering Dr: THUY MCKEON STUDY: X-RAY - LUMBOSACRAL SPINE REASON FOR EXAM: Male, 56 years old. Fusion surgery 10 years ago. Fall a couple weeks ago now with low back and bilateral leg pain getting worse. TECHNIQUE: 6 view(s) of the lumbosacral spine including lateral flexion and extension views. COMPARISON: None FINDINGS: Normal lumbar lordosis. There is no substantial scoliosis. There is normal alignment of the vertebrae. Postoperative changes of posterior lumbar fusion L4-L5. Bilateral rods, pedicle screws and prosthetic disks. There may be 1 mm of anterolisthesis L3 on L4 in flexion. Otherwise no significant motion in flexion or extension. Normal vertebral bodies and endplates. Normal disc space heights. Normal bilateral sacral ala, sacroiliac joints, and visualized sacrum. Normal visualized soft tissue structures. RAD/L/S Spine Comp/w Bending Views IMPRESSION: Postoperative changes of posterior lumbar fusion L4-L5. Possible minimal anteriorlisthesis L3 on L4 in flexion. Electronically Signed: Deni Thornton MD at 3:33 EDT , Service support , CC: Erlin Bella DO; THUY MCKEON Electric Cell Tender: Signed STRESS REPORT Observed: 11/05/2017 Status: F Source: CARNEGIE 5:01 PM [facility] Cardiovascular Services [facility] [place] [address] MR#: [id number] Acct: [id number] Name: YVROSE GONZALEZL R Rep #: [id number] : 1960 56 From: Silvestre Ross MD Primary Care: Erlin Bella DO Status: REG CLI Ordering Dr: Mary: Ita Rosales Stress Test Report Exercise myocardial perfusion stress test. 56-year-old man with a history of chest pain. Medications: Losartan hydrochlorothiazide Aleve. Stress protocol: Resting EKG demonstrates normal sinus rhythm with a rate of 63 bpm normal intervals and noted resting blood pressure is 110/78 mmHg. Patient exercised according to regular Bill protocol for total duration of 7 minutes and 16 seconds maximum heart rate was 150 bpm which was 90% of maximum predicted heart rate. The maximum workload was 8.9 metabolic equivalents. The patient maintained sinus rhythm throughout the recording. At rest there were upsloping changes noted at peak exercise upsloping EKG changes were noted less than 1 mm with no evidence of depression suggest ischemia the resting blood pressure is 110/78 peak blood pressure 164/80 mmHg. No clinical angina was noted. Myocardial perfusion protocol. 14.4 mCi of technetium 99m sestamibi was injected at rest. Patient exercised according to regular Bill protocol for 7 minutes and 16 seconds attaining 90% of maximum predicted heart rate. Peak exercise 44.7 mCi of technetium 99m sestamibi was injected stress images were obtained stress and rest images were reconstructed and compared in the short axis vertical and horizontal long axis. Gated images were also obtained Perfusion SPECT analysis: Review of the stress images demonstrate normal uptake of tracer noted on his myocardium the resting images similarly demonstrate normal uptake of tracer noted on his myocardium. No areas of reversibility and is just ischemia no previous infarct is noted. Gated SPECT analysis: The gated ejection fraction is noted to be 66%. No wall motion abnormalities are present. Conclusion: Normal exercise myocardial perfusion stress test at a high workload. No clinical angina noted. Good functional capacity. No ischemia present. 11/05/17 1701 <Electronically signed by Silvestre Ross MD> Date Silvestre Ross MD CC: Erlin Bella DO Date Dictated: 11/05/171657 Date Transcribed: 11/05/171657 Electric Cell Tender: CO Signed INTERNAL MEDICINE Observed: 10/30/2017 Status: F Source: YOGI OFFICE VISIT 12:18 PM [facility] [address] [place] [address] OFFICE VISIT Date of Service: 10/30/17 MR#: [id number] Acct: [id number] Name: CHI GONZALEZ Rep #: [id number] : 1960 Provider: Erlin Bella DO Age/Sex: 56/M Location: [facility] [place] Status: Signed Intake Vital Signs10/30/17 Height 5 ft 11 in Intake Visit Reasons: sinus Chief Complaint: SOB Is patient in pain?: No Allergies No Known Allergies Allergy (Unverified 05/29/17 13:45) Medications acetaminophen 500 mg capsule 500 mg PO Q6H PRN 05/29/17 [History Confirmed 05/29/17] cetirizine 10 mg capsule 10 mg PO QDAY 05/29/17 [History Confirmed 05/29/17] losartan 100 mg-hydrochlorothiazide 12.5 mg tablet 1 tab PO QDAY 05/29/17 [History Confirmed 05/29/17] lysine 500 mg tablet 500 mg PO QDAY 05/29/17 [History Confirmed 05/29/17] naproxen sodium 220 mg tablet 220 mg PO BID 05/29/17 [History Confirmed 05/29/17] pseudoephedrine-guaifenesin ER 60 mg-600 mg tablet,extend release 12hr 1 tab PO BID PRN 05/29/17 [History Confirmed 05/29/17] pyridoxine (vitamin B6) 100 mg tablet 100 mg PO ONCE 05/29/17 [History Confirmed 05/29/17] codeine 7.5 mg-guaifenesin 225 mg/5 mL oral liquid 5 ml PO Q6H PRN #473 ml 10/07/17 [Rx Confirmed 10/07/17] PFSH Medical History History of pneumonia (Chronic) Asthma (Chronic) Seasonal allergies (Chronic) Surgical History History of appendectomy (Acute) History of carpal tunnel repair (Acute) History of hand surgery (Acute) History of lumbar fusion (Acute) Family History Father Asthma Bone cancer Myocardial infarction Mother Myocardial infarction Hypertension Grandmother Myocardial infarction Grandmother Myocardial infarction Grandfather Myocardial infarction CVA (cerebral vascular accident) Brother Myocardial infarction Hypertension Grandfather Parkinson disease Social History Smoking Status: Never smoker alcohol intake: current alcohol intake frequency: holidays/special occasions only substance use type: does not use what type of physical activity do you participate in: none HPI HPI Chief Complaint: SOB Details: CHI GONZALEZ, is a 56 M who presents to the office today for cough and shortness of breath. He says symptoms began about 6 weeks ago with this cough and shortness of breath. Of great concern to me is that his shortness of breath seems to be completely exertional so that walking and doing moderate amounts of work caused him to be short of breath to the point that he cannot do it and has to stop. He has had no fever the cough is not productive. ROS Const Constitutional: No weight change, body ache, chills, fatigue, sleep problems, fever(s), change in appetite, snoring, weakness, frequent falls, headache(s) or excessive sweating Eyes Eyes: No change in vision, eye pain, light sensitivity or blurry vision ENT ENT: No headache(s), abnormal hearing, ear pain, tinnitus, nasal congestion, sore throat or neck pain Resp Respiratory: Positive for cough, shortness of breath and wheezing; no snoring Cardio Cardiology: Positive for chest pain at rest Symptoms: Heaviness; no excessive sweating, chest pain with exertion, shortness of breath, dyspnea on exertion, palpitations, orthopnea or lightheadedness Gastro GI: No abdominal pain, change in bowel habits, constipation, diarrhea, vomiting, nausea/dyspepsia or cramping Genitourinary Male: No painful urination, urinary incontinence, urinary frequency, urinary urgency, blood in urine, testicle pain or other Musc Musculoskeletal: No neck pain, abnormal walking, joint pain, back pain, limited range of motion, numbness or tingling Skin Skin: No redness, dry skin, itching, lesions, wounds or rash Neuro Neurology: No weakness, frequent falls, headache(s), abnormal hearing, abnormal walking, numbness, tingling, abnormal speech, dizziness or memory loss Psych Psychiatric: No change in appetite, No memory loss, No anxiety, No depression, No Thoughts of harming yourself/Others Endo Endocrine: No fatigue, excessive sweating, cold intolerance, increased thirst/drinking, heat intolerance, flushing or increased hunger Aller/Imm Allergy/Immunologic: Positive for wheezing; no itchy eyes, hives or seasonal allergy symptoms Andrea/Lymp Hematologic/Lymphatic: No easy bleeding, easy bruising or enlarged lymph nodes Exam Const General: cooperative, healthy appearing Nutritional Appearance: average body habitus HENNE Nose: nasal mucous membranes and turbinates normal Resp Effort AND Inspection: normal respiratory effort, symmetric chest movement Auscultation: Bilateral: Clear to Auscultation Cardio Rate: regular rate Rhythm: regular rhythm Assessment AND Plan Problems 1. Dyspnea on exertion R06.09 Plan This patient was seen because he thought he had a continuation of an upper respiratory tract infection. However on exam I could not find any evidence of a problem at all as his lungs were totally clear as were his upper airway passages. On deeper questioning it seemed like he was complaining of dyspnea with exertion and some dyspnea with laying down. This patient has a very ominous cardiac history of both parents with premature coronary artery disease as well as a younger brother with artery disease so I think it is best to be cautious and stress test him. Orders Orders: Coding Level of Care Code Off vis,est,level 3 Diagnoses Dyspnea on exertion R06.09 10/30/17 1218 <Electronically signed by Erlin Blela DO> Date Erlin Bella DO Cosigner Signature: Date (if applicable) CC: INTERNAL MEDICINE Observed: 10/08/2017 Status: F Source: [place] OFFICE VISIT 4:43 PM [facility] [address] [place] [address] OFFICE VISIT Date of Service: 10/07/17 MR#: [id number] Acct: [id number] Name: CHI GONZALEZ Rep #: [id number] : 1960 Provider: Christa Kiser MD Age/Sex: 56/M Location: [facility] Status: Signed Intake Vital Signs10/07/17 Height 5 ft 11 in Intake Visit Reasons: POSS SINUS INF Chief Complaint: sinus symptoms Is patient in pain?: Yes (chest from cough) Pain scale (1- 10): 7 Allergies No Known Allergies Allergy (Unverified 05/29/17 13:45) Medications acetaminophen 500 mg capsule 500 mg PO Q6H PRN 05/29/17 [History Confirmed 05/29/17] cetirizine 10 mg capsule 10 mg PO QDAY 05/29/17 [History Confirmed 05/29/17] losartan 100 mg-hydrochlorothiazide 12.5 mg tablet 1 tab PO QDAY 05/29/17 [History Confirmed 05/29/17] lysine 500 mg tablet 500 mg PO QDAY 05/29/17 [History Confirmed 05/29/17] naproxen sodium 220 mg tablet 220 mg PO BID 05/29/17 [History Confirmed 05/29/17] pseudoephedrine-guaifenesin ER 60 mg-600 mg tablet,extend release 12hr 1 tab PO BID PRN 05/29/17 [History Confirmed 05/29/17] pyridoxine (vitamin B6) 100 mg tablet 100 mg PO ONCE 05/29/17 [History Confirmed 05/29/17] azithromycin 500 mg tablet See Label Instructions PO .COMPLEX #9 tab 10/07/17 [Rx Confirmed 10/07/17] codeine 7.5 mg-guaifenesin 225 mg/5 mL oral liquid 5 ml PO Q6H PRN #473 ml 10/07/17 [Rx Confirmed 10/07/17] PFSH Medical History History of pneumonia (Chronic) Asthma (Chronic) Seasonal allergies (Chronic) Surgical History History of appendectomy (Acute) History of carpal tunnel repair (Acute) History of hand surgery (Acute) History of lumbar fusion (Acute) Family History Father Asthma Bone cancer Myocardial infarction Mother Myocardial infarction Hypertension Grandmother Myocardial infarction Grandmother Myocardial infarction Grandfather Myocardial infarction CVA (cerebral vascular accident) Brother Myocardial infarction Hypertension Grandfather Parkinson disease Social History Smoking Status: Never smoker alcohol intake: current alcohol intake frequency: holidays/special occasions only substance use type: does not use what type of physical activity do you participate in: none HPI HPI Chief Complaint: sinus symptoms Details: CHI GONZALEZ, is a 56 M who presents to the office today with increased sinus pressure, headache, postnasal drip and cough. He has a history of chronic/recurrent sinusitis and per patient he has been managed on azithromycin in the past. ROS Const Constitutional: Positive for fatigue; no body ache, chills, headache(s), weakness or fever(s) Eyes Eyes: No blurry vision, change in vision, eye pain or discharge ENT ENT: Positive for sore throat, sinus pain, nasal discharge and sinus pressure; no headache(s), abnormal hearing, ear pain, ear pressure, tinnitus, dizziness/vertigo or balance problems Resp Respiratory: Positive for cough Cough: Yes productive; no shortness of breath or wheezing Cardio Cardiology: Positive for chest pain at rest (due to cough); no shortness of breath, dyspnea on exertion or palpitations Gastro GI: No abdominal pain or bloating Neuro Neurology: No headache(s), weakness or abnormal hearing Endo Endocrine: Positive for fatigue Aller/Imm Allergy/Immunologic: No wheezing Exam Const General: cooperative, no acute distress Orientation: alert, awake, oriented x3 HENMT Head: atraumatic, normocephalic Ears: hearing grossly normal bilaterally, TM's normal bilaterally Resp Effort AND Inspection: normal respiratory effort, able to speak in complete sentences Auscultation: Bilateral: Clear to Auscultation Cardio Rate: regular rate Rhythm: regular rhythm Heart Sounds: S1 normal, S2 normal GI Palpation: soft, no hepatosplenomegaly Neuro General: alert, awake, oriented x3, moves all extremities, CN's II-XI intact bilaterally Extrem General: no clubbing, cyanosis or edema Psych Appearance: grossly normal Mood: congruent mood Affect: normal affect Assessment AND Plan 1. Recurrent sinusitis J32.9 Plan Patient reports a history of chronic /recurrent sinusitis which he has been on a regimen of azithromycin and guaifenesin with codeine syrup. This he states typically helps resolve his symptoms. Prescription sent in. Advised to call in if no significant improvement of his symptoms. 2. URI (upper respiratory infection) J06.9 Plan Plan as above. Other conservative measures also discussed including rest, increased fluid intake and airborne immune supplements. Advised to call if no significant improvement of the symptoms. This note was generated with Wrightspeedation software. It may contain incorrect words, spelling, and punctuation that were not noted in checking the note before signing. Plan Detail Other Medications New: azithromycin take 500 mg today (day 1), then 250 mg for 4 days (day s 2-5) PO Coding Level of Care Code Off vis,est,level 3 Diagnoses Recurrent sinusitis J32.9 URI (upper respiratory infection) J06.9 10/08/17 1643 <Electronically signed by Christa Kiser MD> Date Christa Kiser MD Cosigner Signature: Date (if applicable) CC: ALKALINE PHOSPHATASE Collected: 05/29/2017 Status: F Source: [place] 2:43 PM [facility] REPOSITORY TYPE CODE TESTS RESULT OUT OF RANGE REFERENCE UNITS LAB L501.4305 45-117 U/L Normal ALK P 105 Performed By: #### L501.4305 #### [facility] [address] [place], [address] CHEST PA AND LATERAL Observed: 05/29/2017 Status: F Source: [place] 2:42 PM [facility] REPOSITORY [facility] Imaging Services [address] [place] [address] Chest PA and Lateral MR#: [id number] Acct: [id number] Name: CHI GONZALEZ Rep #: [id number] : 1960 M 56 From: Radames Hung DO PCP: Erlin Bella DO Status: REG CLI Study: Chest PA and Lateral Date of Exam: 05/29/17 Exam# [id number] Ordering Dr: Erlin Bella DO STUDY: X-RAY CHEST REASON FOR EXAM: Male, 56 years old. Pain in the chest and clavicle area times one week TECHNIQUE: PA and lateral views of the chest. COMPARISON: None. FINDINGS: Mildly elevated right hemidiaphragm. The lungs are clear and expanded. There is no demonstrated pleural abnormality. Normal size heart. Normal mediastinum and maru. Normal visualized pulmonary arteries. Normal visualized aortic arch and descending thoracic aorta. Normal visualized thoracic spine. Normal visualized ribs, clavicles, and shoulders. There is no demonstrated abnormality of the visualized soft tissue structures of the upper abdomen. RAD/Chest PA and Lateral IMPRESSION: No acute cardiopulmonary disease Electronically Signed: Radames Hung DO at 13:34 EDT Tel , Service support , CC: Erlin Bella DO Electric Cell Tender: Signed CLAVICLE Observed: 05/29/2017 Status: F Source: [place] 2:42 PM [facility] REPOSITORY [facility] Imaging Services [address] [place] [address] Clavicle MR#: [id number] Acct: [id number] Name: CHI GONZALEZ Rep #: [id number] : 1960 M 56 From: Garrett Urban MD PCP: Erlin Bella DO Status: REG CLI Study: Clavicle Date of Exam: 05/29/17 Exam# [id number] Ordering Dr: Erlin Bella DO STUDY: X-RAY - LEFT CLAVICLE REASON FOR EXAM: Male, 56 years old. Chest/clavicle pain for one week. TECHNIQUE: 2 view(s) of the clavicle. COMPARISON: None. FINDINGS: Normal clavicle. There is borderline degenerative arthrosis of the acromioclavicular joint without inferior osseous prominence. Normal visualized sternoclavicular articulation. Normal visualized pulmonary apex. 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 Electronically Signed: Franklin Urban MD at 19:29 EDT , Service support , CC: Erlin Bella DO Electric Cell Tender: Signed INTERNAL MEDICINE Observed: 05/29/2017 Status: F Source: [place] OFFICE VISIT 2:21 PM [facility] [address] [place] [address] OFFICE VISIT Date of Service: 05/29/17 MR#: [id number] Acct: [id number] Name: CIH GONZALEZ Rep #: [id number] : 1960 Provider: Erlin Bella DO Age/Sex: 56/M Location: [facility] Status: Signed Intake Vital Signs05/29/17 Height 5 ft 11 in 05/29/17 Weight: 253 lb 05/29/17 Body Mass Index (BMI) 35.2 05/29/17 Blood Pressure 133/84 Intake Visit Reasons: check up Chief Complaint: Check up Is patient in pain?: Yes (Lt Clavicle) Pain scale (1-10): 8 Allergies No Known Allergies Allergy (Unverified 05/29/17 13:45) Medications acetaminophen 500 mg capsule 500 mg PO Q6H PRN 05/29/17 [History Confirmed 05/29/17] cetirizine 10 mg capsule 10 mg PO QDAY 05/29/17 [History Confirmed 05/29/17] losartan 100 mg-hydrochlorothiazide 12.5 mg tablet 1 tab PO QDAY 05/29/17 [History Confirmed 05/29/17] lysine 500 mg tablet 500 mg PO QDAY 05/29/17 [History Confirmed 05/29/17] naproxen sodium 220 mg tablet 220 mg PO BID 05/29/17 [History Confirmed 05/29/17] pseudoephedrine-guaifenesin ER 60 mg-600 mg tablet,extend release 12hr 1 tab PO BID PRN 05/29/17 [History Confirmed 05/29/17] pyridoxine (vitamin B6) 100 mg tablet 100 mg PO ONCE 05/29/17 [History Confirmed 05/29/17] PFS Medical History Asthma (Chronic) Seasonal allergies (Chronic) Surgical History History of appendectomy (Acute) History of carpal tunnel repair (Acute) History of hand surgery (Acute) History of lumbar fusion (Acute) Family History Father Asthma Bone cancer Myocardial infarction Mother Myocardial infarction Hypertension Grandmother Myocardial infarction Grandmother Myocardial infarction Grandfather Myocardial infarction CVA (cerebral vascular accident) Brother Myocardial infarction Hypertension Grandfather Parkinson disease Social History Smoking Status: Never smoker alcohol intake: current alcohol intake frequency: holidays/special occasions only substance use type: does not use what type of physical activity do you participate in: none HPI HPI Chief Complaint: Check up Details: CHI GONZALEZ, is a 56 M who presents to the office today for a check up, he has had a difficulty with getting an appointment at the old office. Basic problem is pain in the left clavicle ROS Const Constitutional: No anorexia, body ache, chills, fatigue, fever(s), decreased energy, malaise, night sweats, weight change, sleep problems, other, excessive sweating, weakness, frequent falls, headache(s), abnormal sleep pattern or change in appetite Eyes Eyes: No blurry vision, change in vision, double vision, discharge, dry eyes, bulging eyes, floaters, eye pain, light sensitivity, spots in vision, tunnel vision, other or visual disturbances ENT ENT: No difficulty swallowing, abnormal hearing, headache(s), neck pain, lip swelling, throat swelling or tongue swelling Resp Respiratory: Positive for wheezing Cardio Cardiology: No chest pain at rest, chest pain with exertion, leg pain with exertion, excessive sweating, shortness of breath, dyspnea on exertion, generalized swelling, irregular heart rhythm, lightheadedness, orthopnea, radiating jaw, neck or arm pain, fast heart rate, slow heart rate, palpitations or other Gastro GI: No abdominal pain, belching, bloating, change in bowel habits, change in stool character, coffee ground emesis, constipation, cramping, diarrhea, heartburn, difficulty swallowing, feeling full early, excessive flatus, incontinent of stools, Vomiting blood/hematemesis, blood in stool, loose stools, Black,tarry stools, nausea/dyspepsia, pain with swallowing, vomiting or other Genitourinary Male: No difficulty urinating, burning urination, painful urination, urinary incontinence, urinary frequency, urinary urgency, urinary hesitancy, urinary retention, blood in urine, Frequent nighttime urination/ nocturia, post void dribbling, suprapubic fullness, side pain, sexual problems, genital lesions, genital itching, erectile dysfunction, penile discharge, difficulty with ejaculations, blood in semen, scrotal swelling, testicle lump, testicle pain or other Musc Musculoskeletal: Positive for joint pain and back pain; no abnormal walking, deformity, joint swelling, limited range of motion, loss of height, muscle cramps, muscle weakness, decreased muscle mass, body aches, neck pain, numbness, radiating pain into limb, stiffness, tingling or other Skin Skin: No acne, hair loss, change in hair, nail changes, boil, change in skin color, dry skin, redness, excessive hair growth, yellowing of the skin, lesions, rash, skin pain, skin ulcer, sores, skin swelling, wounds, other or itching Breast Breast: No other Neuro Neurology: No abnormal hearing, abnormal movements, abnormal speech, unsteady gait/balance, dizziness, weakness, frequent falls, headache(s), lack of coordination, loss of vision, visual disturbances, restless legs, fainting, tremor(s), other, behavioral changes, confusion, memory loss, abnormal walking, numbness or tingling Psych Psychiatric: No abnormal sleep pattern, No lack of enjoyment, No anxiety, No behavioral changes, No change in appetite, No confusion, No depression, No difficulty concentrating, No hopelessness, No irritability, No memory loss, No mood swings, No panic attacks, No paranoia, No Thoughts of harming yourself/Others, No hallucinations, No other Endo Endocrine: No fatigue or excessive sweating Aller/Imm Allergy/Immunologic: Positive for seasonal allergy symptoms and wheezing; no food intolerance, itchy eyes, lip swelling, throat swelling, tongue swelling, hives or other Andrea/Lymp Hematologic/Lymphatic: No easy bleeding, easy bruising, enlarged lymph nodes or other Exam Const General: cooperative, healthy appearing Chest Chest palpation AND inspection: normal inspection of the chest, localized rib tenderness with anteroposterior compression (Pain with pressure over the left clavicle) Resp Effort AND Inspection: normal respiratory effort Auscultation: Bilateral: Clear to Auscultation Cardio Palpation: normal PMI Rate: regular rate Rhythm: regular rhythm Musc Musculoskeletal: Yes joint tenderness; no muscle weakness Skin General: no rashes or lesions noted Assessment AND Plan Orders Orders: Coding Level of Care Code Off vis,est,level 3 05/29/17 1421 <Electronically signed by Erlin Bella DO> Date Erlin Bella DO Cosigner Signature: Date (if applicable) CC: ALLERGIES ALLERGIES DATE TYPE / CODE NAME / CODE REACTION SEVERITY SOURCE 02/11/2018 Drug No Known Unknown [facility] Allergy/4160 Allergies/F00 [facility] 83998(SNOMED 4494629(RXNOR Repository CT) M) ENCOUNTERS ENCOUNTERS ADMIT/DISCHARGE ACCOUNT NUMBER ADMITTING ENCOUNTER LOCATION SOURCE CLASS 03/07/[id number] [facility] ding:PT Repository 03/06/2018 [id number] Ambulatory [facility] Repository 02/14/2018/02/15/20 [id number] Ambulatory [address] ding:SDCRoom Repository : AC19 02/14/2018 [id number] Ambulatory BMSBuilding: [facility] Repository 02/07/2018 [id number] [facility] ding:LAB.FUT Repository URE 02/04/[id number] [facility] ding:CT Repository 01/22/2018/01/23/20 [id number] Ambulatory BMSBuilding: [place] 18 BMS.[facility] Repository 12/31/[id number] [facility] ding:LABSPEC Repository 12/31/2017/01/01/20 [id number] Ambulatory BMSBuilding: [place] 18 BMS.[facility] Repository 12/10/[id number] [facility] ding:RAD.FUT Repository URE 11/05/[id number] [facility] ding:CVS Repository 11/05/2017 [id number] Ambulatory [facility]MSBuilding: [facility] Repository 10/30/2017/10/31/19 [id number] Ambulatory BMSBuilding: [place] 18 BMS.[facility] Repository 10/07/2017/10/08/19 [id number] Ambulatory BMSBuilding: [place] 18 BMS.[facility] Repository 05/29/[id number] [facility] ding:LAB Repository 05/29/2017/05/30/19 [id number] Ambulatory BMSBuilding: [place] 18 BMS.[facility] Repository PAYERS PAYERS ENCOUNTER GUARANTOR PAYER SUBSCRIBER SOURCE 03/07/2018 [id number] Primary CHI KOHLERB: [place] [address] Insurance[facility] [id number] [place] Number: [facility] [address]Ijr: (855) [id number] Repository [phone] () Date:8009-95-83HE [address] [place] [address]BZ: 03/07/2018 Secondary NOT GIVENUNK [place] Insurance:SELF PAY [facility] Number: Effective Repository Date:2018-02-06 03/06/2018 Chi Hanson: Primary Chi KohlerB: [facility] [place] [facility] [id number] System [address] Number: Effective Repository [place], [place] Date: [address]Lqs: () 02/14/2018 CHI [id number] Primary CHI Marvin GONZALEZDOB: [place] [address] Insurance:AETNAPolicy [id number] [facility] [place] Number: Hospital [address]Ixq: (330) [id number] Repository [phone] () Date:0022-76-54EP [address] [place] [address]FT: 02/14/2018 Secondary NOT GIVENUNK [place] Insurance:SELF PAY [facility] Number: Effective Repository Date:2018-02-06 02/14/2018 CHI [id number] Primary CHI GONZALEZDOB: [place] [address] Insurance:AETNAPolicy [id number] [facility] Number: Hospital [address]Ssw: (330) [id number] Repository [phone] () Date:1306-84-51ZS [address] [address]WU: 02/14/2018 Secondary NOT GIVENUNK [place] Insurance:SELF PAY Community [facility] Hospital Number: Effective Repository Date:2018-02-14 02/07/2018 CHI [id number] Primary CHI GONZALEZDOB: [place] [address] Insurance:AETNAPolicy [id number] [facility] Number: Hospital [address]Lxv: (330) [id number] Repository [phone] () Date:5809-13-17EC [address] [place] [address]VL: 02/07/2018 Secondary NOT GIVENUNK [place] Insurance:SELF PAY Community [facility] Hospital Number: Effective Repository Date:2018-02-07 02/04/2018 CHI [id number] Primary CHI R CARLOSDOB: [place] [address] Insurance:AETNAPolicy [id number] [facility] Number: Hospital [address]Euc: (330) [id number] Repository [phone] (HP) Date:1382-50-77EW [address] [place] [address]NU: 02/04/2018 Secondary NOT GIVENUNK [place] Insurance:SELF PAY [facility] Number: Effective Repository Date:2018-01-28 01/22/2018 CHI [id number] Primary CHI R SMITHDOB: [place] [address] Insurance:AETNAPolicy [id number] [facility] Number: Hospital [address]Cez: (330) [id number] Repository [phone] (HP) Date:9339-85-25LT [address] [address]YY: 01/22/2018 Secondary NOT GIVENUNK [place] Insurance:SELF PAY [facility] Number: Effective Repository Date:2018-01-22 12/31/2017 CHI R [id number] Primary CHI R SMITHDOB: [place] [address] Insurance:AETNAPolicy [id number] [facility] [place] Number: Hospital [address]Slv: (330) [id number] Repository [phone] (HP) Date:8334-91-32JW [address] [place] [phone]: 12/31/2017 Secondary NOT GIVENUNK [place] Insurance:SELF PAY [facility] Effective Repository Date:2017-12-31 12/31/2017 CHI R [id number] Primary CHI R SMITHDOB: [place] [address] Insurance:AETNAPolicy [id number] [facility] [place] Number: Hospital [address]Tct: (330) [id number] Repository [phone] (HP) Date:9036-97-67CH [address] [place] [address]QY: 12/31/2017 Secondary NOT GIVENUNK [place] Insurance:SELF PAY [facility] Number: Effective Repository Date:2017-12-31 12/10/2017 CHI [id number] Primary CHI R CARLSODOB: [place] [address] Insurance:AETNAPolicy [id number] [facility] [place] Number: Hospital [address]Vcf: (330) [id number] Repository [phone] (HP) Date:5211-64-06UO [address] [address]WO: 12/10/2017 Secondary NOT GIVENUNK [place] Insurance:SELF PAY [facility] Number: Effective Repository Date:2017-12-05 11/05/2017 CHI [id number] Primary CHI R CARLOSDOB: [place] [address] Insurance:AETNAPolicy [id number] [facility] [place] Number: Hospital [address]Ayb: (330) [id number] Repository [phone] (HP) Date:3948-57-21DH [address] [address]EX: 11/05/2017 Secondary NOT GIVENUNK [place] Insurance:SELF PAY Community [facility] Effective Repository Date:2017-10-30 11/05/2017 CHI [id number] Primary CHI R CARLOSDOB: [place] [address] Insurance:AETNAPolicy [id number] [facility] Number: Hospital [id number]: (330) [id number] Repository [phone] (HP) Date:5455-19-65[address] [address]TK: 11/05/2017 Secondary NOT GIVENUNK [place] Insurance:SELF PAY Community [facility] Number: Effective Repository Date:2017-11-05 10/30/2017 CHI [id number] Primary CHI R CARLOSDOB: [place] [address] Insurance:AETNAPolicy [id number] [facility] Number: Hospital [id number]: (330) [id number] Repository [phone] (HP) Date:[id number] [place] [address]AS: 10/30/2017 Secondary NOT GIVENUNK [place] Insurance:SELF PAY Community [facility] Number: Effective Repository Date:2017-10-30 10/07/2017 CHI [id number] Primary CHI R CARLOSDOB: [place] [address] Insurance:AETNAPolicy [id number] [facility] Number: Hospital [id number]: (330) [id number] Repository [phone] (HP) Date:6477-52-28[address] [place] [address]HV: 10/07/2017 Secondary NOT GIVENUNK [place] Insurance:SELF PAY [facility] Rep[facility] Date:2017-10-07 05/29/2017 CHI [id number] Primary CHI R CARLOSDOB: [place] [address] Insurance:AETNAPolicy [id number] [facility] Number[place] Hospital [id number]: [id number] Repository [phone] Date:8767-80-99[address] ([address]) [address] [address]BZ: 05/29/2017 Secondary NOT GIVENUNK [place] Insurance:SELF PAY [facility] Rep[facility] Date:2017-05-29 05/29/2017 CHI [id number] Primary CHI GONZALEZDOB: [place] [address] Insurance:AETNAPolicy [id number] [facility] [place] Number: Hospital [id number]: [id number] Repository [phone] Date:4866-59-92JU [address] (HP) [address]WDF[place] [address]PO: 05/29/2017 Secondary NOT GIVENUNK [place] Insurance:SELF PAY Community [facility] Number: Effective Repository Date:2017-05-28
== END ==
PROVIDERS: Family Provider Family Medicine; PCP Family Medicine; Referring Provider Otolaryngology; Visit Provider Otolaryngology
DX: J32.2 Chronic ethmoidal sinusitis (principal)
CPT/HCPCS: 70486

== ENCOUNTER 2018-02-14 05:51 | Day surgery (SDC) | payer OTHER, SELFPAY ==
[2018-01-22 13:05] VITALS: BMI 34.7
--- NOTE | 2018-02-14 06:02 | EKG12_ITS ---
Test Reason : PRE OP Blood Pressure : / mmHG Vent. Rate : 075 BPM Atrial Rate : 075 BPM P-R Int : 168 ms QRS Dur : 084 ms QT Int : 378 ms P-R-T Axes : 029 -10 -01 degrees QTc Int : 422 ms Normal sinus rhythm Normal ECG No previous ECGs available Confirmed by KAYLA VACA ([id number]), commissioning editor KARSTEN TRONCOSO ([id number]) on 02/19/2018 2:52:01 PM Referred By: Ashwin Herbert Confirmed By:KAYLA VACA
[2018-02-14 06:12] VITALS: BP 122/77; PULSE 71; RESP 16; TEMP 36.5; O2SAT 96; BMI 34.1
[2018-02-14 06:40] LABS: Anion Gap 9 (5-15); BUN 18 mg/dL (7-18); BUN/Creat Ratio 19.2 RATIO (10-20); Calcium,Total 8.5 mg/dL (8.5-10.1); Chloride 109 mmol/L (98-107); Creatinine, Serum 0.94 mg/dL (0.70-1.30); EST Glomerular Filtration Rate 88 mL/min (>60); Est Glom Filt Rate - Afr Amer 107 mL/min (>60); Estimated Creatinine Clearance 93.46 ml/min; Glucose 112 mg/dL (74-106); Potassium 3.9 mmol/L (3.5-5.1); Sodium Level 142 mmol/L (136-145)
--- NOTE | 2018-02-14 07:30 | MISC_PTH ---
PATIENT: VIANNEY GONZALEZ [place] [facility] [place][id number] AGE/SX: 57/M ROOM: RE02/14/[address]: Dr. Ashwin Herbert MD : 1960 BED: DIS: 02/14/2018 SPEC #: [id number] RECD: 02/14/18 09:15 STATUS: MACHO LAWRENCE #: [id number] CHRIS: 02/14/18 07:[address]: Ashwin Herbert DEPT: SURGICAL PATHOLOGY RECD BY: Kevin George ENTERED: 02/14/18 13:22 SP TYPE: [facility] DR: Dr. Erlin Bella, DO Tissues: A - Maxilla, NOS B - Maxilla, NOS Procedures: Decalcification bone/plaque Surgery Specimen Level III HEADER OPERATION: Endoscopic sinus nasal maxillary antrostomy with navigation PRE-OP DIAGNOSIS: Chronic maxillary sinusitis TISSUE SUBMITTED: A - Left sinus contents, B - Right sinus contents MICROSCOPIC DIAGNOSIS A. Left sinus contents, excision: Consistent with chronic sinusitis. Fragments of bone with no significant pathologic change. B. Right sinus contents, excision: Consistent with chronic sinusitis. Fragments of bone with no significant pathologic change. AM:glenroy 02/21/18 MICROSCOPIC DESCRIPTION Slides are reviewed. GROSS DESCRIPTION A - Received in fixative is one container labeled with the patient's name and designated left sinus contents. The specimen consists of multiple fragments of hemorrhagic soft tissue mixed with fragments of bone that in aggregate measure 5 x 3 x 0.3 cm. The entire specimen is submitted in two cassettes after decalcification. B - Received in fixative is one container labeled with the patient's name and designated right sinus contents. The specimen consists of multiple fragments of hemorrhagic soft tissue mixed with fragments of bone that in aggregate measure 3 x 2.5 x 0.3 cm. The entire specimen is submitted in one cassette after decalcification. / SJ:glenroy 02/14/18 TC:3 CPT: 21897 x2, 70050 x2
[2018-02-14] MEDS: Oxymetazoline 0.05% 1 SPRAY SPRAY.BTL 15 SPRAY (08:00)
[2018-02-14] MEDS: Lidocaine 4% 50 ML Bottle (08:00)
--- NOTE | 2018-02-14 08:58 | PCM.OPRPT ---
Problem List (1) Chronic maxillary sinusitis Status: Chronic Report of Operation Date of Procedure: 02/14/18 Pre-Operative Diagnosis: Chronic maxillary sinusitis Post-Operative Diagnosis: same Surgery/Procedure Performed:: Bilateral endoscopic maxillary sinusitis Description of Surgical Findings:: Chi is a 57 y.o male who presents with chronic maxillary sinusitis. He reports a distant history of surgery on one side that left him with epiphora and ongoing discomfort. Ct imaging shoed severe left sided disease and mild disease on the right and revision surgery was offered. The risks, alternatives, potential benefits, and complications were discussed at length and any questions answered to the patient and/or caregiver's satisfaction. Witnessed informed consent was obtained in the office, and the patient and/or caregiver was agreeable to proceed. Procedure went as follows: The patient was identified in the preoperative holding and brought to the operating room, was placed under general anesthesia and intubated. When appropriate anesthesia was obtained, the navigational head gear was placed and confirmed to be operational in accordance with the nurse coordinator's directions. Pledgets soaked in a 50-50 mixture of oxymetazoline and 4% topical lidocaine were placed to decongest the nasal mucosa. These were then removed and beginning on the left side using a 0? endoscope the nasal cavity examined. The insertion of the middle turbinate and uncinate process was then injected with 1% lidocaine with 100,000 epinephrine for a 2 mL total, and a similar injection was then carried on the contralateral side. The tissue was noted to be very friable and easy to bleed with only minor abrasion, although no bleeding tendency was reported pre-operatively. Upon returning to the left side the middle turbinate was medialized with a Buckingham elevator. This allowed examination of the maxillary sinus ostia which is then probed with a double ball seeker. The uncinate process remnant was then outfractured with a J curette and transected with a backbiting forceps. There was extensive scarring of the maxillary ostia and this was lysed and removed. The sinus was atrophic with thickening of the bone schultz and the cavity was probed and suctioned clear with an olive tip suction. The middle turbinate encroached upon the ostia and the inferior portion was then removed to reduce the risk of re-stenosis. The wound edge was then cauterized for hemostatis. On the right side the middle turbinate was medialized with a Graham elevator. This allowed examination of the maxillary sinus ostia which is then probed with a double ball seeker. The uncinate process was then outfractured with a J curette and transected with a backbiting forceps. This was then removed with the microdebrider creating a wide maxillary antrostomy. Pledgets soaked in oxymetazoline were then placed for hemostasis and upon removal Floseal hemostatic agent was then applied. An NG tube was then placed to decompress the stomach and the patient returned to anesthesia, revived and extubated having tolerated the procedure well. Type of Anesthesia:: General Anesthesiologist: Eulogio Kelley Special Medications: none Specimen's removed: sinus contents Drains: none Estimated Blood Loss (mL): 100 mL Fluids Replaced: 1100 mL Grafts/Implants Used: none - Complications none - Admit VTE Documentation VTE Present on Admission: No VTE Mechan Device Prophylaxis: SCD's VTE Pharm Prophylaxis ordered?: No
[2018-02-14 09:01] VITALS: BP 122/77; BP 134/89; PULSE 80; RESP 14; TEMP 36.2; O2SAT 94
--- NOTE | 2018-02-14 09:09 | DCINST_ITS ---
- Discharge Diagnoses Current Active Problems: Current Active and Chronic Problems (Last Reviewed 12/31/17 @ 11:13 by Ann Fonseca) Chronic maxillary sinusitis (Chronic) You will use the following diet at home:: Regular Discharge Activity: Return to Normal Activity, May not drive while taking narcotic pain medications. Call your doctor if your incision/area has: Sudden Increased Bleeding Call your doctor if you observe: Fever of 101 or Higher, Uncontrolled pain Allergies/Adverse Reactions: Allergies No Known Allergies Allergy (Unverified 02/11/18 14:20) Medications to take at Discharge acetaminophen 500 mg capsule 500 mg PO Q6H PRN 05/29/17 losartan 100 mg-hydrochlorothiazide 12.5 mg tablet 1 tab PO QDAY 05/29/17 lysine 500 mg tablet 500 mg PO QDAY 05/29/17 naproxen sodium 220 mg tablet 220 mg PO DAILY 05/29/17 pyridoxine (vitamin B6) 100 mg tablet 100 mg PO ONCE 05/29/17 ascorbic acid (vitamin C) 500 mg capsule 500 mg PO DAILY cap 12/31/17 tamsulosin 0.4 mg capsule 0.4 mg PO DAILY #30 cap 12/31/17 budesonide-formoterol HFA 80 mcg-4.5 mcg/actuation aerosol inhaler 2 puff INHALATION BID PRN g 01/22/18 fluticasone 50 mcg/actuation nasal spray,suspension 2 spray INTRANASAL DAILY #15.8 g 01/22/18 white mulberry 1 tab PO DAILY 01/22/18 Orders to be completed after discharge: 12 Lead EKG [[facility]] Time Frame: 02/14/18, Location: None Selected Basic Metabolic Profile (BMP) Time Frame: 02/14/18, Location: Laboratory Primary Care Physician: Erlin Bella DO [Primary Care Provider] - Test Results: Test results from this visit will be discussed in further detail at your follow- up appointment, if applicable. Please Follow Up With: Ashwin Herbert MD When: 2 weeks
[2018-02-14 09:15] VITALS: BP 120/69; BP 122/77; PULSE 78; RESP 16; O2SAT 100
[2018-02-14 09:30] VITALS: BP 116/78; BP 122/77; PULSE 72; RESP 16; TEMP 36.2; O2SAT 94
[2018-02-14 10:00] VITALS: BP 122/77
== END 2018-02-14 10:07 | disposition home or self-care (01) ==
LOC: SDC 05:52 → AC 05:53
PROVIDERS: Family Provider Family Medicine; PCP Family Medicine; Referring Provider Otolaryngology; Visit Provider Otolaryngology
PROC: (CPT 31267; principal; 2018-02-14 07:00)
DX: J32.0 Chronic maxillary sinusitis (principal); Z79.899 Other long term (current) drug therapy; Z87.891 Personal history of nicotine dependence; J45.909 Unspecified asthma, uncomplicated
CPT/HCPCS: 00160; 31267; 80048; 88304; 88305; 88311; 93005; J7120; J2405

== ENCOUNTER 2018-03-07 08:00 | Outpatient (RCR) | payer OTHER, SELFPAY ==
[2018-01-22 13:05] VITALS: BMI 34.7
--- NOTE | 2018-02-12 13:48 | HP.PTEVAL_ITS ---
Patient's Visit Information VIANNEY GONZALEZ is a 57 year old M referred to Physical Therapy by Erlin Bella DO with a diagnosis of LB radiculopathy.. Date of Evaluation: 02/12/18 Physical Therapist: Ashwin Jj DPT, OCS, CSCS - Visit Plan Frequency: 2-3x /Week Duration: 4-6 Weeks Plan: 2-3x/week for 4-6 weeks for: LE adn core strength. HS and quad and gastroc stretching. LB ROM - Subjective Findings: Done MRI and has 2 cysts adn bulging discs adn needs surgery...has to do this first. L3/L4 uis the problem. Has h/o fusion L4/5 10 years ago. Was doing OK until a year and a half ago when he got numbness in legs and feet insidiously. Has LBP in middle and to lower back. Gets to 7/10 constant. Gets worse to 9/10 with bending and lifting and carrying. Sleep is not good due to pain and hasn't been for a year. Has seen chiropractor and has not helped with numbness in legs. 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 Worse after work. Standing and sitting. Stands to zaria and sits to foil. Basic ADLs are OK, avoids housework due to LBP. Gardening and yard work are hobbies and has had to stop them due to LBP. Had to stop bike riding. Trouble knowing when urinating stops and doctor aware of this. - Pain LBP Pain Intensity (Out of 10): 7 Pain Intensity Range: 7, 9 Comment: had pain for 12 years - Objective R wrist fused solid from previous injury. Walks slowly but I, trasnfers I with UE. Rolls slow but able. Posture is hunched forward adn flat lordosis in lumbar and c/s. L/S aROM ext is max limited adn centrall pain. B SB mod limited. Flexion is max limited and hesitant. Sensation is diminished to gross light touch in B LE form knees down. reflexes patella and achilles 0/3 B. Weakness present in DF, knee ext at 3+ and knee flexion at 4- B, Patient has hard time breonna any of these muscles for any length of time. Very weka. Steps require rail and show weakness L >R with some minor trendelenberg. + slump and SLR for posterior pain on R side into LB. NE on numbness or strength today with ROM testing. - Goals Goal 1:: Patient show only moderate limitation in LB ROM without increased pain Goal Time Frame: 4-6 Weeks Goal 2:: Patient show 4/5 stregnth in LE and feel 50% stronger overall. Goal Time Frame: 4-6 Weeks Goal 3:: Sleep withotu waking at night due to pain. Goal Time Frame: 4-6 Weeks Goal 4:: I approp HEP to minimize future problems or fulfill requirement for next approp medical step. Goal Time Frame: 4-6 Weeks - Rehabilitation Potential Physical Therapy Diagnosis: LBP andd radiculopathy. Rehabilitation Potential: Poor - Anticipated Interventions Patient/Client Instruction: Educate patient on: Condition, Plan of Care For the Purpose of:: To decrease pain, To increase tolerance to activity/condition/position, To improve ability of physical actions for home/community/work/leisure Therapeutic Exercise to Include: Strength training, Flexibilty training, In an aquatic setting, Passive ROM, Active ROM, Dynamic Lumbar Stabilization For the Purpose of:: To increase ROM, To improve muscle performance and motor function, To increase tolerance to activity/condition/position, To improve ability of physical actions for home/community/work/leisure Thank you for the opportunity to evaluate your patient. For Medicare and Medicare HMO plans, please review the plan of care and approve it. It will need to be FAXED BACK to us at [phone] for Medicare purposes. For Medicare only, by signing this I certify the plan of care. Please let me know if there are questions or concerns regarding this plan of care. Physician Signature: Date:
--- NOTE | 2018-03-07 08:15 | HP.PTDCSUM ---
HP - PT D/C Summary It has been my pleasure to treat VIANNEY GONZALEZ under orders from Erlin Bella DO, for the diagnosis of LB radiculopathy. for a total of 10 visit(s). Discharge Date: 03/07/18 Please see the following information for a summary of their discharge status. - Subjective Subjective: Will have CT scan results soon. Feels more flexible from the water btu numbness in B legs from knees down has not changed at all. Pain is 5-6/10 in LB constantly. About the same as he was but does feel more flexible. sleep is not great, wakes up every couple hours. 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 Basic aDLs are OK, has to be careful walking on uneven gorund. - Pain LBP Pain Intensity (Out of 10): 6 BLEs Pain Intensity (Out of 10): 5 - Overall Improvement % Improvement: 0 - Objective Objective/Function: 4-/5 hs and knee ext strength B, 4/5 ankle DF. Steps are reciprocal without rail but weak. OVERALL PATIENT BACK ROM SLIGHTLYT BETTER BUT HAS NOT HELPED WEAKNESS, PAIN OR NUMBNESS. - Goals Goal 1:: Patient show only moderate limitation in LB ROM without increased pain Goal Progress: Goal Met Goal 2:: Patient show 4/5 stregnth in LE and feel 50% stronger overall. Goal Progress: Not Progressing Goal 3:: Sleep withotu waking at night due to pain. Goal Progress: Not Progressing Goal 4:: I approp HEP to minimize future problems or fulfill requirement for next approp medical step. Goal Progress: Goal Met, stretching. - Plan Plan: D/C, BACK TO DOCTOR FOR NEXT STEP. - D/C Information Discharge Comments: Recommend back to doctor for next step. If there are questions or concerns regarding this patient's physical therapy, please feel free to call me at [phone]. Thank you for the referral of this patient. Sincerely, Ashwin Jj, DPT, OCS, CSCS
--- OUTSIDE RECORDS SUMMARY | 2018-05-16 18:09 | XMS RPT_ITS ---
:1960 Author Organization [place] Support Name Relationship Address Phone [facility] Unavailable [address] + [place] [address] ANDREA BEAVERS Unavailable [address] + [place] [address] Andrea Beavers Unavailable Unavailable + [facility] Unavailable [address] + [place] [address] ANDREA BEAVERS Unavailable [address] + [place] [address] [facility] Unavailable [address] + [place] [address] ANDREA BEAVERS Unavailable [address] + [place] [address] [facility] Unavailable [address] + [place] [address] ANDREA BEAVERS Unavailable [address] + [place] [address] [facility] Unavailable [address] + [place] [address] ANDREA BEAVERS Unavailable [address] + [place] [address] [facility] Unavailable [address] + [place] [address] ANDREA BEAVERS Unavailable [address] + [place] [address] [facility] Unavailable [address] + [place] [address] ANDREA BEAVERS Unavailable [address] + [place] [address] [facility] Unavailable [address] + [place] [address] ANDREA BEAVERS Unavailable [address] + [place] [address] [facility] Unavailable [address] + [place] [address] ANDREA BEAVERS Unavailable [address] + [place] [address] [facility] Unavailable [address] + [place] [address] ANDREA BEAVERS Unavailable Unavailable + [facility] Unavailable [address] + [place] [address] ANDREA BEAVERS Unavailable Unavailable + [facility] [place]available . + ., [place] . ANDREA BEAVERS Unavailable . + ., [place] . [facility] [place] . + ., [place] . ANDREA BEAVERS Unavailable . + ., [place] . [facility] [place] . + ., [place] . ANDREA BEAVERS Unavailable Unavailable [phone] [facility] [place]available . + ., [place] . ANDREA BEAVERS Unavailable . [phone] ., [place] . Care Team Providers Name Role Phone DAVID HERNANDEZ Attending Unavailable PROVIDER, UNKNOWN Referring Unavailable Brown, Erlin Primary Care Unavailable Brown, Erlin Attending Unavailable Brown, Erlin Primary Care Unavailable Ashwin Herbert Attending Unavailable Brown, Erlin Primary Care Unavailable Brown, Erlin Attending Unavailable Brown, Erlin Referring Unavailable Brown, Erlin Attending Unavailable Brown, Erlin Referring Unavailable Brown, Erlin Primary Care Unavailable Herbert, Ashwin Attending Unavailable Herbert, Ashwin Referring Unavailable Brown, Erlin Primary Care Unavailable Kalpesh Vaca Attending Unavailable Maribellrta, Ashwin Referring Unavailable Christa Kiser Attending Unavailable Brown, Erlin Referring Unavailable Brown, Erlin Primary Care Unavailable Brown, Erlin Attending Unavailable Brown, Erlin Referring Unavailable Brown, Erlin Primary Care Unavailable Brown, Erlin Attending Unavailable Brown, Erlin Referring Unavailable Brown, Erlin Primary Care Unavailable Silvestre Ross Attending Unavailable Brown, Erlin Referring Unavailable , EDIE Attending Unavailable EDIE GILBERT Referring Unavailable Brown, Erlin Primary Care Unavailable Go, Kush STEEL POURER HELPER-C Attending Unavailable Brown, Erlin Referring Unavailable Go, Kush STEEL POURER HELPER-C Attending Unavailable Go, Kush STEEL POURER HELPER-C Referring Unavailable Brown, Erlin Primary Care Unavailable Go, Kush STEEL POURER HELPER-C Attending Unavailable Brown, Erlin Referring Unavailable Herbert, Ashwin Attending Unavailable Herbert, Ashwin Referring Unavailable Brown, Erlin Primary Care Unavailable PROBLEMS PROBLEMS DATE TYPE CONDITION / CODE ATTENDING STATUS SOURCE 03/20/2018 Unknown M54.16 - Brown, Erlin Active [place] Radiculopathy, Community lumbar region / Hospital M54.16(ICD-10) Repository 03/06/2018 Admitting Spondylolysis, INKROTT, Active [facility] Diagnosis lumbar region / DAVID System M43.06(ICD-10) [facility]AB[facility]INA Repository 03/06/2018 Admitting Low back pain / INKROTT, Active [facility] Diagnosis M54.5(ICD-10) DAVID System [facility] Repository 03/06/2018 Admitting Arthrodesis status / INKROTT, Active [facility] Diagnosis Z98.1(ICD-10) DAVID System [facility] Repository 03/12/2018 Unknown Z01.810 - Encounter Kalpesh Vaca Active [place] [facility] / Repository Z01.810(ICD-10) 01/22/2018 Unknown J32.9 - Chronic Go, Kush Active [place] sinusitis, [employer] Community unspecified / Hospital J32.9(ICD-10) Repository 12/31/2017 Unknown R10.9 - Unspecified Go, Kush Active [place] abdominal pain / [employer]PER[employer] Community R10.9(ICD-10) Hospital Repository 12/31/2017 Unknown R30.0 - Dysuria / Go, Kush Active [place] R30.0(ICD-10) [employer]PER[employer]C [facility] Hospital Repository 12/31/2017 Unknown N20.0 - Calculus of Go, Kush Active [place] kidney / [employer]C [facility] N20.0(ICD-10) Hospital Repository 12/10/2017 Unknown M96.1 - EDIE GILBETR Active [place] Postlaminectomy Community syndrome, not Hospital elsewhere classified Repository / M96.1(ICD-10) 12/10/2017 Unknown M54.17 - EDIE GILBERT Active [place] Radiculopathy, Community lumbosacral region / Hospital M54.17(ICD-10) Repository 12/03/2017 Unknown R06.09 - Other forms Vandana, [place] Active [place] of dyspnea / Community R06.09(ICD-10) Hospital Repository 05/29/2017 Unknown M89.8X1 - Other Erlin Bella Active [place] specified disorders Community of bone, shoulder / Hospital M89.8X1(ICD-10) Repository PROCEDURES PROCEDURES No Procedure Records FoundRESULTS RESULTS PT D/C SUMMARY (1) Observed: 03/11/2018 Status: F Source: [place] 9:43 AM [facility] REPOSITORY [facility] Physical Therapy Health[address] [place] [address] / REHABILITATION SERVICES DISCHARGE SUMMARY MR#: [id number] Acct: [id number] Name: CHI GONZALEZ Rep #: [id number] : 1960 57 From: Ashwin Jj DPT, [...] please feel free to call me at [phone]. Thank you for the referral of this patient. Sincerely, Ashwin Jj DPT, MALIHA, CSCS <Electronically signed by Ashwin Jj DPT, MALIHA, CSCS> 03/11/18 0943 CC: Erlin Bella DO EBG Signed CT SPINE LUMBAR W/O Observed: 03/07/2018 Status: F Source: iZ3D 10:36 AM SYSTEM REPOSITORY Patient Name: CHI GONZALEZ CT Exam Date/Time 03/06/2018 13:27:[address] Spine Lumbar w/o Contrast Ordering Physician MD MARY, DAVID GERBER Accession Number [id number] CPT4 Codes 78058 () Reason For Exam Lower back Pain [...] LEAD ELECTROCARDIOGRAM Observed: 02/19/2018 Status: F Source: LEITER 2:52 PM [facility] REPOSITORY [facility] Cardiovascular Services [address] [place] [address] 13214 12 Lead EKG 02/14/18 0638 MR#: [id number] Acct: [id number] Name: CHI GONZALEZ Rep #: [id number] : 1960 57 From: Kalpesh Vaca MD Attending Dr: Ashwin Herbert MD Status: DEP [facility] Ordering Dr: Ashwin Herbert MD Date: 02/14/18 Location: [facility] Sex: M C Admitted: Test Reason : [...] ECGs available Confirmed by KALPESH VACA ([id number]), art editor KARSTEN TRONCOSO ([id number]) on 02/19/2018 2:52:01 PM Referred By: Ashwin Herbert Confirmed By:KALPESH VACA 02/19/18 1452 Date Kalpesh Vaca MD CC: Erlin Bella DO; Ashwin Herbert MD Signed MISCELLANEOUS SPECIMEN Observed: 02/14/2018 Status: F Source: [place] 7:30 AM [facility] REPOSITORY Patient: CHI GONZALEZ : 1960 (57/M) Acct Num: [id number] Phys: Ashwin Herbert MD Unit Num: [id number] Loc: [facility] Specimen: [id number] Received: 02/14/1815 Spec Type: [facility] TISSUES 1 TISSUES: A. Maxilla, NOS B. [...] after decalcification. / SJ:glenroy 02/14/18 TC:3 CPT: 32406 x2, 17185 x2 HEADER OPERATION: Endoscopic sinus nasal maxillary [...] significant pathologic change. AM:glenroy 02/21/18 Signed Chad Kingsley DO 02/21/18 <signature on file> Performed By: #### PMISC #### [facility] [address] [place], [place], [address] INITAL EVALUATION (1) Observed: 02/14/2018 Status: F Source: LEITER - PT 6:45 AM [facility] REPOSITORY [facility] [address] [place] [address]. [address] [place] [address] Fax REHABILITATION SERVICES INITIAL EVALUATION MR#: [id number] Acct: [id number] Name: CHI GONZALEZ Rep #: [id number] : 1960 57 From: Ashwin Jj DPT, OCS, CSCS Referring Dr.: Erlin Bella DO Status: REG RCR Insurance: AETNA SELF PAY INSURANCE Patient's Visit Information CHI GONZALEZ is a 57 year old M referred to Physical Therapy by Erlin Bella DO with a diagnosis of LB radiculopathy.. Date of Evaluation: 02/12/18 Physical Therapist: Ashwin Jj DPT, MALIHA, CSCS - Visit Plan Frequency: 2-3x /Week [...] to be FAXED BACK to us at [phone] for Medicare purposes. For Medicare only, by signing this I certify the plan of care. Please let me know if there are questions or concerns regarding this plan of care. Physician Signature: Date: <Electronically signed by Ashwin Jj DPT, OCS, CSCS> 02/14/18 0645 CC: Erlin Bella DO EBG Signed BASIC METABOLIC Collected: 02/14/2018 Status: F Source: [place] PROFILE (BMP) 6:15 AM [facility] REPOSITORY TYPE CODE TESTS RESULT OUT OF [...] 9 GAP Performed By: #### L500.2500 #### [facility] [address] [facility] [place], [address] SINUS/FACIAL BONE Observed: 02/04/2018 Status: F Source: LEITER 7:32 AM [facility] REPOSITORY [facility] Imaging Services [address] [place] [address] Sinus/Facial Bone MR#: [id number] Acct: [id number] Name: CHI GONZALEZ Rep #: [id number] : 1960 M 57 From: Alphonso Gil MD PCP: Erlin Bella DO Status: REG CLI Study: Sinus/Facial Bone Date of Exam: 02/04/18 Exam# [id number] Ordering Dr: Ashwin Herbert MD STUDY: CT [...] Alphonso Gil MD at 14:40 EST Tel [phone], Service support , CC: Erlin Bella DO; Ashwin Herbert MD Financial Project Manager: Signed INTERNAL MEDICINE Observed: 01/23/2018 Status: F Source: [place] OFFICE VISIT 9:05 AM [facility] [place] Internal Medicine [address] [place] [address] [address] [place] [address] OFFICE VISIT Date of Service: 01/22/18 MR#: [id number] Acct: [id number] Name: CHI GONZALEZ Rep #: [id number] : 1960 Provider: Kush Go NP Age/Sex: 57/M Location: [facility] Status: Signed Intake Vital Signs01/22/18 Height 5 [...] oriented x3 Limitations: mental status not altered [facility] Head: normal to inspection, normocephalic, atraumatic Ears: [...] hypoactive bowel sounds Palpation: soft, no hepatosplenomegaly [facility] Musculoskeletal: No joint tenderness, decreased ROM or [...] F Source: [place] OFFICE VISIT 9:40 AM [facility] [place] [place] [facility] [address] [place] [address] [place] [address] OFFICE VISIT Date of Service: 12/31/17 MR#: [id number] Acct: [id number] Name: CHI GONZALEZ Rep #: [id number] : 1960 Provider: Kush Go NP Age/Sex: 57/M Location: [facility] Status: Signed Intake Vital Signs12/31/17 Height 5 [...] DAILY #30 cap 12/31/17 [Rx Confirmed 12/31/17] [facility] Medical History History of pneumonia (Chronic) Asthma [...] is concerned because he is leaving the [facility] and is going to be on a [...] oriented x3 Limitations: mental status not altered [facility] Head: normal to inspection Ears: hearing grossly [...] affect Attitude: cooperative Thought Process: normal Results [facility] Urine Color Yellow Last Edit by Ann Fonseca on 12/31/17 11:39 Assessment AND Plan 1. Recurrent sinusitis J32.9 Plan Patient does have a history of recurrent sinusitis and has acute on chronic sinusitis in the frontal region at this time. Discussed with him that I would like him to follow-up with a ENT. He was recently on an antibiotic and Lena of this year of azithromycin. He refuses [...] follow-up after 3-week vacation. May continue with tknx-pan-lyefgkt analgesics for pain relief. Defer imaging at [...] 12/31/2017 Status: F Source: [place] 1:00 PM [facility] REPOSITORY Order Comment: How was Urine Obtained? HAND REAMER TO SPECIFY TYPE CODE TESTS RESULT OUT [...] URINE SEEN Performed By: #### L400.0001 #### [facility] [address] [facility] [place], [place], [address] Observed: 12/31/2017 Status: F Source: [place] CULTURE, URINE 1:00 PM [facility] REPOSITORY Urine Culture ORGANISM 1: Enterococcus faecalis [place] Count >100,000 Enterococcus faecalis: REACTION Ampicillin $ <=2 S Benzylpenicillin NF 2 S Ciprofloxacin $ <=0.5 S Gentamicin SYN-S S Levofloxacin $ 0.5 S Linezolid $$$$ 2 S Nitrofurantoin $ <=16 S Streptomycin $ SYN-S S Tetracycline NF >=16 R Vancomycin $ 1 S (NF) indicates non-formulary drug at [facility]. Approval by Infectious Disease Specialist required before non-formulary drugs may be ordered and/or dispensed. * CLSI guidelines does not recommend testing of cephalosporins. This interpretation is deduced from Beta-lactam/penicillin results. Performed By: #### M100.0650 #### [facility] [address] [facility] [place], [place], [address] L/S SPINE COMP/W Observed: 12/10/2017 Status: F Source: LEITER BENDING VIEWS 9:11 AM [facility] REPOSITORY [facility] Imaging Services [address] [place] [address] L/S Spine Comp/w Bending Views MR#: [id number] Acct: [id number] Name: CHI GONZALEZ Rep #: [id number] : 1960 M 56 From: Deni Thornton PCP: Erlin Bella DO Status: REG CLI Study: L/S Spine Comp/w Bending Views Date of Exam: 12/10/17 Exam# [id number] Ordering Dr: THUY MCKEON STUDY: X-RAY - [...] , CC: Erlin Bella DO; THUY MCKEON Financial Project Manager: Signed STRESS REPORT Observed: 11/05/2017 Status: F Source: LEITER 5:01 PM [facility] REPOSITORY [facility] Cardiovascular Services [address] [place] [address] MR#: [id number] Acct: [id number] Name: CHI GONZALEZ Rep #: [id number] : 1960 56 From: Silvestre Ross MD [...] Good functional capacity. No ischemia present. 11/05/17 808 <Electronically signed by Silvestre Ross MD> Date Silvestre Ross MD CC: Erlin Bella DO Date Dictated: 11/05/171657 Date Transcribed: 11/05/171657 Financial Project Manager: [place] Signed INTERNAL MEDICINE Observed: 10/30/2017 Status: F Source: [place] OFFICE VISIT 12:18 PM [facility] [place] [place] [facility] [address] [place] [address] OFFICE VISIT Date of Service: 10/30/17 MR#: [id number] Acct: [id number] Name: CHI GONZALEZ Rep #: [id number] : 1960 Provider: Erlin Bella DO Age/Sex: 56/M Location: [facility] Status: Signed Intake Vital Signs10/30/17 Height 5 [...] healthy appearing Nutritional Appearance: average body habitus HENMT Nose: nasal mucous membranes and turbinates normal [...] R06.09 10/30/17 1218 <Electronically signed by Erlin Bella DO> Date Erlin Bella DO Cosigner Signature: Date (if applicable) CC: INTERNAL MEDICINE Observed: 10/08/2017 Status: F Source: [place] OFFICE VISIT 4:43 PM [facility] [place] [facility] [place] [address] OFFICE VISIT Date of Service: 10/07/17 MR#: [id number] Acct: [id number] Name: CHI GONZALEZ Rep #: [id number] : 1960 Provider: Christa Kiser MD Age/Sex: 56/M Location: [facility] Status: Signed Intake Vital Signs10/07/17 Height 5 [...] HPI Chief Complaint: sinus symptoms Details: CHI GONZALEZ is a 56 M who presents to [...] the symptoms. This note was generated with [employer] dictation software. It may contain incorrect words, spelling, [...] ALKALINE PHOSPHATASE Collected: 05/29/2017 Status: F Source: [place]ITER 2:43 PM [facility] REPOSITORY TYPE CODE TESTS RESULT OUT OF RANGE REFERENCE UNITS LAB L501.4305 45-117 U/L Normal ALK P 105 Performed By: #### L501.4305 #### [facility] [address] [facility] [place], [address] CHEST PA AND LATERAL Observed: 05/29/2017 Status: F Source: LEITER 2:42 PM [facility] REPOSITORY [facility] Imaging Services [address] [place] [address] Chest PA and Lateral MR#: [id number] Acct: [id number] Name: CHI GONZALEZ Marvin Rep #: [id number] : 1960 M 56 From: Radames Hung DO PCP: Erlin Bella DO Status: REG CLI Study: Chest PA and Lateral Date of Exam: 05/29/17 Exam# [id number] Ordering Dr: Erlin Bella DO STUDY: X-RAY [...] Service support , CC: Erlin Bella DO Financial Project Manager: Signed CLAVICLE Observed: 05/29/2017 Status: F Source: LEITER 2:42 PM [facility] REPOSITORY [facility] Imaging Services [address] [place] [address] Clavicle MR#: [id number] Acct: [id number] Name: CARLOSCHI R Rep #: [id number] : 1960 56 From: Garrett Urban MD PCP: Erlin Bella DO Status: REG CLI Study: Clavicle Date of Exam: 05/29/17 Exam# [id number] Ordering Dr: Erlin Bella DO STUDY: X-RAY [...] Service support , CC: Erlin Bella DO Financial Project Manager: Signed INTERNAL MEDICINE Observed: 05/29/2017 Status: F Source: [place] OFFICE VISIT 2:21 PM [facility] [place] [facility] [place] [address] OFFICE VISIT Date of Service: 05/29/17 MR#: [id number] Acct: [id number] Name: CHI GONZALEZ Rep #: [id number] : 1960 Provider: Erlin Bella DO Age/Sex: 56/M Location: [facility] Status: Signed Intake Vital Signs05/29/17 Height 5 [...] mg PO ONCE 05/29/17 [History Confirmed 05/29/17] [facility] Medical History Asthma (Chronic) Seasonal allergies (Chronic) [...] SEVERITY SOURCE 02/11/2018 Drug No Known Unknown [facility] Allergy/4160 Allergies/F00 [facility] [address](SNOMED 8586514(RXNOR Repository CT) M) ENCOUNTERS ENCOUNTERS ADMIT/DISCHARGE ACCOUNT NUMBER ADMITTING ENCOUNTER LOCATION SOURCE CLASS 03/07/2018/03/07/19 [id number] Ambulatory [address] ding:PT Repository 03/06/2018 [id number] Ambulatory [facility] Repository 02/14/2018/02/15/20 [id number] Ambulatory [address] ding:SDCRoom Repository : AC19 02/14/2018 [id number] Ambulatory BMSBuilding: [facility] Repository 02/07/2018 [id number] Ambulatory [facility] ding:LAB.FUT Repository URE 02/04/2018 [id number] Ambulatory [facility] ding:CT Repository 01/22/2018/01/23/20 [id number] Ambulatory BMSBuilding: [place] [facility] BMS.[facility] Repository 12/31/2017 [id number] Ambulatory [facility] ding:LABSPEC Repository 12/31/2017/01/01/20 [id number] Ambulatory BMSBuilding: [place] 18 BMS[facility] Repository 12/10/2017 [id number] Ambulatory [facility] ding:RAD.FUT Repository URE 11/05/2017 [id number] Ambulatory [facility] ding:[facility] Repository 11/05/2017 [id number] Ambulatory BMSBuilding: [place] [facility] Repository 10/30/2017/10/31/19 [id number] Ambulatory BMSBuilding: [place] 18 BMS.[facility] Repository 10/07/2017/10/08/19 [id number] Ambulatory BMSBuilding: [place] 18 BMS[facility] Repository 05/29/2017 [id number] Ambulatory [facility] ding:LAB Repository 05/29/2017/05/30/19 [id number] Ambulatory BMSBuilding: [place] 18 BMS.[facility] Repository PAYERS PAYERS ENCOUNTER GUARANTOR PAYER SUBSCRIBER SOURCE 03/07/2018 CHI [id number] Primary CHI HERNANDEZ: [place] [address] Insurance:AETNAReviverMx [id number] [place], [place] Number: [facility] [address]Qsm: (957) [id number] Repository [phone] () Date:7682-69-29PW [place]EL[place] 867706EXFADIA [place] [address]BD: 03/07/2018 Secondary NOT GIVENUNK [place] Insurance:SELF PAY [facility] Number: Effective Repository Date:2018-02-06 03/06/2018 Chi Hernandez: Primary Chi Hernandez: [facility] Insurance:AetnaPolicy [id number] System [address] Number: Effective Repository [place], [place] Date: [address]Jvw: (HP) 02/14/2018 CHI GONZALEZ6400 Primary CHI GONZALEZB: [place] [address] Insurance:AETNAPolicy [id number] [facility] [place] Number: Hospital [id number]: (330 [id number] Repository [phone] (HP) Date:0726-09-72EA [address] [place] [address]BK: 02/14/2018 Secondary NOT GIVENUNK [place] Insurance:SELF PAY [facility]: Effective Repository Date:2018-02-06 02/14/2018 CHIDixie GONZALEZ6400 Primary CHIDixie KOHLERB: [place] [address] Insurance:AETNAPolicy [id number] [facility] Number: Hospital [address]Dym: (330) [id number] Repository [phone] (HP) Date:3078-19-98SG [address], [place] [address]CH: 02/14/2018 Secondary NOT GIVENUNK [place] Insurance:SELF PAY [facility] Number: Effective Repository Date:2018-02-14 02/07/2018 CHIDixie GONZALEZ6400 Primary CHIDixie KOHLERB: [place] [address] Insurance:AETNAPolicy [id number] [place] Number[facility] Hospital [address]Qka: (330) [id number] Repository [phone] (HP) Date:0645-21-63GM [address] [address]CR: 02/07/2018 Secondary NOT GIVENUNK [place] Insurance:SELF PAY [facility] Number: Effective Repository Date:2018-02-07 02/04/2018 CHI GONZALEZ6400 Primary CHI R SMITHDOB: [place] [address] Insurance:AETNAPolicy [id number] [facility] Number: Hospital [address]Bkf: (330) [id number] Repository [phone] (HP) Date:3426-03-86NO [address] [place] [address]CQ: 02/04/2018 Secondary NOT GIVENUNK [place] Insurance:SELF PAY [facility] Number: Effective Repository Date:2018-01-28 01/22/2018 CHI R [id number] Primary CHI R CARLOSDOB: [place] [address] Insurance:AETNAPolicy [id number] [facility] [place] Number: Hospital [address]Iiu: (330) [id number] Repository [phone] (HP) Date:0318-83-00FX [address] [address]EI: 01/22/2018 Secondary NOT GIVENUNK [place] Insurance:SELF PAY [facility] Number: Effective Repository Date:2018-01-22 12/31/2017 CHI R [id number] Primary CHI R CARLOSDOB: [place] [address] Insurance:AETNAPolicy [id number] [facility] Number: Hospital [address]Ari: (330) [id number] Repository [phone] (HP) Date:9411-91-15[address] [place] [address]KE: 12/31/2017 Secondary NOT GIVENUNK [place] Insurance:SELF PAY [facility] Number: Effective Repository Date:2017-12-31 12/31/2017 CHI R [id number] Primary CHI R CARLOSDOB: [place] [address] Insurance:AETNAPolicy [id number] [place] Number[facility] Hospital [address]Yuf: (330) [id number] Repository [phone] (HP) Date:0128-25-16NH [address] [place] [address]JD: 12/31/2017 Secondary NOT GIVENUNK [place] Insurance:SELF PAY [facility] Number: Effective Repository Date:2017-12-31 12/10/2017 CHI GONZALEZ6400 Primary CHI GONZALEZDOB: [place] [address] Insurance:AETNAPolicy [id number] [place] Number: Hospital 00000Yuj: (330) [id number] Repository [phone] (HP) Date:8771-82-16HX [address] [place] [address]OA: 12/10/2017 Secondary NOT GIVENUNK [place] Insurance:[facility]LF PAY [facility] Effective Repository Date:2017-12-05 11/05/2017 CHI [id number] Primary CHI GONZALEZDOB: [place] [address] Insurance:AETNAPolicy [id number] [place] Number[facility] Hospital [id number]: (330) [id number] Repository [phone] (HP) Date:7356-18-26CT [address] [place] [address]GF: 11/05/2017 Secondary NOT GIVENUNK [place] Insurance:SELF PAY [facility]: Effective Repository Date:2017-10-30 11/05/2017 CHI [id number] Primary CHI GONZALEZDOB: [place] [address] Insurance:AETNAPolicy [id number] [facility] Hospital [id number]: (330) [id number] Repository [phone] (HP) Date:6228-57-51OI [id number] [facility] [place] [address]XL: 11/05/2017 Secondary NOT GIVENUNK [place] Insurance:SELF PAY Community [facility] Number: Effective Repository Date:2017-11-05 10/30/2017 CHI [id number] Primary CHI GONZALEZDOB: [place] [address] Insurance:AETNAPolicy [id number] [facility] [id number]: (330) [id number] Repository [phone] (HP) Date:1078-24-36YU [address] [place] [address]QH: 10/30/2017 Secondary NOT GIVENUNK [place] Insurance:SELF PAY Community [facility] Number: Effective Repository Date:2017-10-30 10/07/2017 CHI R [id number] Primary CHI R SMITHDOB: [place] [address] Insurance:AETNAPolicy [id number] [facility] Hospital [id number]: (330) [id number] Repository [phone] (HP) Date:1751-36-50AM [address] [place] [address]WE: 10/07/2017 Secondary NOT GIVENUNK [place] Insurance:SELF PAY Community [facility] Number: Effective Repository Date:2017-10-07 05/29/2017 CHI R [id number] Primary CHI R SMITHDOB: [place] [address] Insurance:AETNAPolicy [id number] [facility] Number: Hospital [id number]: [id number] Repository [phone] Date:0456-33-88QN [address] (HP) [id number] [place] [address]WD: 05/29/2017 Secondary NOT GIVENUNK [place] Insurance:SELF PAY Community [facility] Number: Effective Repository Date:2017-05-29 05/29/2017 CHI R [id number] Primary CHI R SMITHDOB: [place] [address] Insurance:AETNAPolicy [id number] Hospital [id number]: [id number] Repository [phone] Date:8592-54-18MM [address] (HP) [address]IA [place] [address]RI: 05/29/2017 Secondary NOT GIVENUNK [place] Insurance:SELF PAY [facility]: Effective Repository Date:2017-05-28
== END 2018-03-07 19:00 | disposition home or self-care (01) ==
LOC: PT 08:00
PROVIDERS: Family Provider Family Medicine; PCP Family Medicine; Visit Provider Family Medicine
DX: M54.16 Radiculopathy, lumbar region (principal)
CPT/HCPCS: 97113; 97162; 97530

== ENCOUNTER 2018-12-16 08:00 | Outpatient (RCR) | payer OTHER, SELFPAY ==
[2018-04-29 08:37] VITALS: BMI 34.1
[2018-08-13 09:27] VITALS: BMI 34.1
--- NOTE | 2018-08-19 11:14 | HP.PTEVAL_ITS ---
Patient's Visit Information VIANNEY GONZALEZ is a 57 year old M referred to Physical Therapy by Out of Town Doctor with a diagnosis of LUMBAR PSEUDOARTHRITIS,LUMBAR RADICULOPATHY,SPINAL STENOSIS. Date of Evaluation: 08/19/18 Physical Therapist: Fco Mcgowan, PT, Cert MDT, OCS - Visit Plan Frequency: 2x /Week Duration: 4 Weeks Plan: S/P LUMBAR FUSION WITH CAGES -3,PLATES SREWS. PT INTERVENTIONS TO INCLUDE DLS ABD/BACK,LE FLEXABLITY ,GRADEDLUMBAR ROM,LE STRENGTHENING - Subjective Findings: This 57 y/o male presents to physical therapy with lumbar fusion - cages,screws ,rods done by DR Elijah Sneed at [facility] on April. Patient was d/c May 05 2018 with fww then transferred to cane and lumbar brace . Patient can remove brace as marizol. Continue with cane extended distance. Patient has pain located left L-S region.Patient has parathesia in foot right. Bowel/bladdder-. Coughing/sneezing+. Pateint surgery lumbar spine impairs ADL'S ,housework wit walking and standing. Patient condotion affects QOL and function. Comorbities lumbar surgery 2007 lumbar fusion L3-4,ORIF right wrist x12. SOCIAL: . 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 GAIT: ambulates with cane decrease stance time slow elian. NEURO: c/o parathesia /tingling right foot,reflexes 1/3 L3-4,L4-5,L5-S1. FLEXABLITY: mod loss tight. INSCION: anterior through abdominal ,and posterior. MMT: hams /quads 4/5,hip flexion 4-/5,ankle 4/5. LUMBAR ROM: flexion mod loss,extenion severe,side glides mod loss. FLEXABLITY: hams mod tight - Special Tests L/S Slump test left side: Negative L/S Slump test right side: Negative L/S Left Straight Leg Raise: Negative L/S Right Straight Leg Raise: Negative - Goals Goal 1:: Independant with HEP Goal Time Frame: 4-6 Weeks Goal 2:: Improve posture/body mechanics for ADL'S Goal Time Frame: 4-6 Weeks Goal 3:: Patient to decrease lumbar pain by 50% or greater to improve function with ADL'S. Goal Time Frame: 4-6 Weeks Goal 4:: Patient to improve lumbar ROM FOR FUNCTION OF RECOVERY Goal Time Frame: 4-6 Weeks Goal 5:: Patient to improve back owestry by 5 points to improve QOL Goal Time Frame: 4-6 Weeks Goal 6:: Patient to ambulate with no device community distance with improved gait pattern. Goal Time Frame: 4-6 Weeks - Rehabilitation Potential Physical Therapy Diagnosis: This patient underwent s/p lumbar fusion with cages posterior/anterior approach with pain poor ROM lumbar ,decrease strength,impairs gait with cane and cauise s deficits with ADL'S Rehabilitation Potential: Good - Anticipated Interventions Patient/Client Instruction: Educate patient on: Condition, Plan of Care For the Purpose of:: To decrease pain, To increase ROM, To improve muscle performance and motor function, To improve ability to perform ADL's, To increase tolerance to activity/condition/position, To improve ability of physical actions for home/community/work/leisure, To improve endurance, To improve balance, To improve safety with gait, To improve ability to perform tasks related to life management Therapeutic Exercise to Include: Strength training, Body mechanics, Postural training, Flexibilty training, Active ROM For the Purpose of:: To decrease pain, To increase ROM, To improve muscle performance and motor function, To increase tolerance to activity/condition/position, To improve ability of physical actions for home/community/work/leisure, To improve gait and locomotor functions, To decrease soft tissue restriction, To increase flexibility/ROM, To improve endurance, To improve balance, To improve ability to perform tasks related to life management TENS: Yes IF ES: Yes Cryotherapy (ice pack, ice massage): Yes For the Purpose of:: To decrease pain, To decrease swelling/inflammation, To improve health of tissue, To decrease soft tissue restriction Thank you for the opportunity to evaluate your patient. For Medicare and Medicare HMO plans, please review the plan of care and approve it. It will need to be FAXED BACK to us at [phone] for Medicare purposes. For Medicare only, by signing this I certify the plan of care. Please let me know if there are questions or concerns regarding this plan of care. Physician Signature: Date:
--- NOTE | 2018-12-16 08:21 | HP.PTDCSUM ---
HP - PT D/C Summary It has been my pleasure to treat VIANNEY GONZALEZ under orders from JENNY ZAMUDIO, for the diagnosis of LUMBAR PSEUDOARTHRITIS,LUMBAR RADICULOPATHY,SPINAL STENOSIS for a total of 25 visit(s). Discharge Date: 12/16/18 Please see the following information for a summary of their discharge status. - Subjective Subjective: Doing well .. Return to all ADLS and functional activities - Pain Left Back Pain Intensity (Out of 10): 2 - Overall Improvement % Improvement: 80 - Objective Objective/Function: POSTURE: WFL. GAIT: reciprocal pattern. MMT: quads/hams 5/5,hip flexion 4/5,ankle 5/5. LUMBAR ROM: flexion min loss ,extension min loss,side glides min loss. FLEXABLITY: hams min tight - Goals Goal 1:: Independant with HEP Goal Progress: Goal Met Goal 2:: Improve posture/body mechanics for ADL'S Goal Progress: Goal Met Goal 3:: Patient to decrease lumbar pain by 50% or greater to improve function with ADL'S. Goal Progress: Goal Met Goal 4:: Patient to improve lumbar ROM FOR FUNCTION OF RECOVERY Goal Progress: Goal Met Goal 5:: Patient to improve back owestry by 5 points to improve QOL Goal Progress: Goal Met Goal 6:: Patient to ambulate with no device community distance with improved gait pattern. Goal Progress: Goal Met - Plan Plan: D/C TO HEP - D/C Information Discharge Comments: HEP If there are questions or concerns regarding this patient's physical therapy, please feel free to call me at [phone]. Thank you for the referral of this patient. Sincerely, Fco Mcgowan, PT, Cert MDT, OCS
== END 2018-12-16 10:31 | disposition home or self-care (01) ==
LOC: PT 08:00
PROVIDERS: Family Provider Family Medicine; PCP Family Medicine
DX: S32.009D Unspecified fracture of unspecified lumbar vertebra, subsequent encounter for fracture with routine healing (principal); M54.16 Radiculopathy, lumbar region; M48.061 Spinal stenosis, lumbar region without neurogenic claudication; M51.36 Other intervertebral disc degeneration, lumbar region; M43.16 Spondylolisthesis, lumbar region
CPT/HCPCS: 97110; 97161

== ENCOUNTER 2019-11-03 06:51 | Day surgery (SDC) | payer OTHER, SELFPAY ==
[2019-10-29 13:06] VITALS: BMI 33.7
--- NOTE | 2019-10-30 01:53 | HP_ITS ---
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 Is patient in pain?: No Allergies amoxicillin [From Augmentin] Allergy (Severe, Verified 10/30/19 09:27) Diarrhea clavulanic acid [From Augmentin] Allergy (Severe, Verified 10/30/19 09:27) Diarrhea chlorhexidine [From Marge-Hex] Allergy (Mild, Verified 10/30/19 09:27) Itching Iodine and Iodide Containing Produc Allergy (Mild, Verified 10/30/19 09:27) Itching ampicillin Adverse Reaction (Severe, Verified 10/30/19 09:27) Diarrhea Medications acetaminophen 500 mg capsule 500 mg PO Q6H PRN 05/29/17 [History Confirmed 10/30/19] lysine 500 mg tablet 1,000 mg PO QDAY 05/29/17 [History Confirmed 10/30/19] cetirizine 10 mg tablet 10 mg PO DAILY 08/13/18 [History Confirmed 10/30/19] cholecalciferol (vitamin D3) 125 mcg (5,000 unit) capsule 5,000 unit PO DAILY 08/13/18 [History Confirmed 10/30/19] gxfahnkvllmp-pjcmpqxg-quazxq 1 tab PO DAILY 08/13/18 [History Confirmed 10/30/19] gabapentin 300 mg capsule 300 mg PO TID #270 cap 10/23/19 [Rx Confirmed 10/30/19] losartan 100 mg-hydrochlorothiazide 12.5 mg tablet 1 tab PO QDAY #90 tab 10/23/19 [Rx Confirmed 10/30/19] montelukast 10 mg tablet 10 mg PO QHS #90 tab 10/23/19 [Rx Confirmed 10/30/19] mecobalamin (vitamin B12) 5,000 mcg disintegrating tablet 5,000 mcg PO DAILY 10/29/19 [History Confirmed 10/30/19] Budesonide/Formoterol 160/4.5 [Symbicort 160/4.5 Mcg Inhaler (SP)] 2 puff INHALATION PRN PRN 10/30/19 [History Confirmed 10/30/19] [facility] Medical History History of pneumonia (Chronic) Asthma (Chronic) Seasonal allergies (Chronic) Back pain (Acute) Difficulty balancing (Acute) Incontinence (Acute) Limb weakness (Acute) SOB (shortness of breath) (Acute) Surgical History History of appendectomy (Acute) History of carpal tunnel repair (Acute) History of hand surgery (Acute) History of lumbar fusion (Acute) History of sinus surgery (Acute) Family History Father Asthma Bone cancer Myocardial infarction Mother Myocardial infarction Hypertension Grandmother Myocardial infarction Grandmother Myocardial infarction Grandfather Myocardial infarction CVA (cerebral vascular accident) Brother Myocardial infarction Hypertension Grandfather Parkinson disease Other Diabetes Social History (Updated 10/30/19 @ 13:[address] Chapo Recinos MD) Smoking Status: Former smoker alcohol intake: current alcohol intake frequency: holidays/special occasions only substance use type: does not use what type of physical activity do you participate in: none HPI HPI HPI: VIANNEY GONZALEZ is a 58 M who presents to the office today for HPI HPI Surgical H&P: Yes HPI: VIANNEY GONZALEZ, is a 58 M who presents to the office today for ventral hernia. The patient had an anterior approach spinal repair about a year and a half ago. He is reported bulging and increase in pain over the incision. Patient reports that occasionally he feels like he is having obstruction and then after a few days he has large bowel movements. He has not been able to push it in at all times. Patient is not having any nausea or vomiting currently. No fevers or chills. No radiation of pain. ROS General General: No weight change, appetite, fatigue, colon cancer, breast cancer or weakness HEENT HEENT: No difficulty swallowing, eye injury, eye surgery, swollen glands or hoarseness Endo Endocrine: No thyroid disease, diabetes mellitus, thyroid cancer, Hair loss, heat intolerance or cold intolerance Cardio Cardiovascular: No murmur, pacemaker, heart disease, atrial fibrillation, high blood pressure, heart attack, heart stent, palpitations, shortness of breat with exertion or chest pain Psych Psychiatric: No depression, anxiety or hearing voices Resp Respiratory: No shortness of breath, No sleep apnea, No cough, No COPD, Yes asthma, No emphysema, No wheezing Gastro Gastrointestinal: Yes abdominal pain, Yes nausea or vomiting, No diarrhea, Yes constipation, No blood in stool, No acid reflux, No hemorrhoids, No ulcers, No gallbladder problem, No black,tarry stools Andrea Hematologic: No blood thinners, No blood disorders, No bleeding, No anemia, No blood clots Neuro Neurologic: No weakness Exam Const General: cooperative Orientation: alert, oriented x3 HENMT Head: normal to inspection Ears: hearing grossly normal bilaterally Eyes General: appearance normal, both eyes and all related structures Visual Morales: normal visual morales by confrontation Neck Neck: normal visual inspection Chest Chest palpation & inspection: normal inspection of the chest Resp Effort & Inspection: normal respiratory effort Auscultation: clear to auscultation bilaterally Cardio Rate: regular rate Rhythm: regular rhythm Heart Sounds: no murmurs GI Inspection: non-distended Palpation: soft, hernia ventral, nontender Musc Cervical Spine: normal cervical lordosis, cervical ROM normal Skin General: no rashes or lesions noted Neuro General: alert, oriented x3 Cranial Nerves: CN's II-XI intact bilaterally Cognition: normal cognition Extrem General: normal to inspection, full ROM Psych Appearance: grossly normal Affect: normal affect Assessment & Plan Problems 1. Ventral incisional hernia K43.2 Plan The patient has an incisional hernia in the ventral area. I was able to reduce this but it was very difficult and painful. I recommend that the patient have this repaired as soon as possible. I recommended laparoscopic and possible open ventral hernia repair. I discussed laparoscopic repair with him. I discussed the risks of bleeding, infection, injury to underlying bowel, recurrence of hernia. The patient has severe allergies to implants and has had 13 operations on his arm to insert and remove several different types of implants. The patient is very concerned for mesh implantation. I did discuss repairing his hernia without mesh. I informed that there was increased recurrence rate but that this is acceptable due to his history of severe allergies. Plan for laparoscopic ventral hernia repair without mesh next week. We discussed the current risks associated with COVID-19. While it is understood that there is a community spread of COVID-19, the risk of breonna COVID-19 while at [facility] ([facility]) is very low; however, the risk cannot be completely mitigated because of the community spread of the disease. We discussed in detail the risk of exposure to and/or potential harm posed by the COVID-19 virus with having a surgery/procedure at this time versus the risk of delaying the surgery/procedure. It is not possible to know either the risk of delaying the surgery or procedure or chance of getting an infection with perfect accuracy, but a joint decision was made to proceed at this time with the scheduled surgery/procedure as indicated on the consent form. Patient was notified that we will need to comply with any screening or testing [facility] wishes to perform or that surgery may be delayed for any positive results. Chapo Recinos MD Pager: [facility] [address] [place] [address], [address] [place] [address] Office: Coding Level of Care Code Off vis,new,level 4 Diagnoses Ventral incisional hernia K43.2 Time Spent (min) 45 10/30/19 1354 <Electronically signed by Chapo redding MD> Date _ Chapo Recinos MD I have re-examined the patient. There are no clinical changes since date of exam.
--- NOTE | 2019-11-03 07:03 | EKG12_ITS ---
Test Reason : PRE-OP Blood Pressure : / mmHG Vent. Rate : 067 BPM Atrial Rate : 067 BPM P-R Int : 162 ms QRS Dur : 094 ms QT Int : 376 ms P-R-T Axes : 047 004 025 degrees QTc Int : 397 ms Normal sinus rhythm Normal ECG Confirmed by DESMOND BROWN, EMI ([id number]), photography editor RAMAN LEYVA ([id number]) on 11/05/2019 10:04:37 AM Referred By: Chapo Recinos Confirmed By:EMI LOGAN MD
[2019-11-03 07:28] VITALS: BP 121/79; PULSE 59; RESP 16; TEMP 36.9; O2SAT 97; BMI 32.3
[2019-11-03 07:29] LABS: Anion Gap 2 (5-15); BUN 20 mg/dL (7-18); Calcium,Total 9.2 mg/dL (8.5-10.1); Chloride 107 mmol/L (98-107); Creatinine, Serum 1.05 mg/dL (0.70-1.30); EST Glomerular Filtration Rate 77 mL/min (>60); Est Glom Filt Rate - Afr Amer 93 mL/min (>60); Glucose 113 mg/dL (74-106); Potassium 4.4 mmol/L (3.5-5.1); Sodium Level 139 mmol/L (136-145)
[2019-11-03] MEDS: Lactated Ringers 1,000 ML 100 ML IV (07:35)
--- NOTE | 2019-11-03 09:00 | HERN_PTH ---
PATIENT: VIANNEY GONZALEZ [place] [facility] [place][id number] AGE/SX: 58/M ROOM: RE11/03/[address]: Dr. Chapo Recinos MD : 1960 BED: DIS: 11/03/2019 SPEC #: [id number] RECD: 11/03/19 10:19 STATUS: MACHO LAWRENCE #: [id number] CHRIS: 11/03/19 09:[address]: Chapo Recinos DEPT: SURGICAL PATHOLOGY RECD BY: Rafiq Tierney ENTERED: 11/03/19 11:15 SP TYPE: Hernia OTHR DR: Dr. Erlin Bella, DO Tissues: A - HERNIA B - HERNIA Procedures: Surgery Specimen Level II HEADER OPERATION: Laparoscopy converted to open incisional hernia repair PRE-OP DIAGNOSIS: Ventral incisional hernia K43.2 TISSUE SUBMITTED: A - Upper hernia sac, B - Lower hernia sac MICROSCOPIC DIAGNOSIS A. Upper hernia sac, herniorrhaphy: Fibrosis and mild chronic inflammation. B. Lower hernia sac, herniorrhaphy: Fibrosis and mild chronic inflammation. AM:glenroy 11/04/19 MICROSCOPIC DESCRIPTION Slides are reviewed. GROSS DESCRIPTION A - Received in fixative is one container labeled with the patient's name and designated upper hernia sac. The specimen consists of a piece of yellow adipose tissue measuring 6 x 4 x 2.5 cm. Sections do not reveal any mass lesion. Rn Cardiovascular Icu sections are submitted in one cassette. B - Received in fixative is one container labeled with the patient's name and designated lower hernia sac. The specimen consists of a piece of londono-yellow fibroadipose tissue measuring 7 x 4 x 2.5 cm. No mass lesion is identified. Rn Cardiovascular Icu sections are submitted in one cassette. / SJ:glenroy 11/03/19 TC:5 CPT: 58821 x2
[2019-11-03] MEDS: Bupiv/Epi 0.25% 30 ML Vial (09:32)
--- NOTE | 2019-11-03 09:55 | PCM.OPRPT ---
Problem List (1) Ventral incisional hernia Status: Acute Report of Operation Date of Procedure: 11/03/19 Pre-Operative Diagnosis: Incisional ventral hernia Post-Operative Diagnosis: Same Surgery/Procedure Performed:: Laparoscopic converted to open incisional ventral hernia repair Drains: GWENDOLYN bulb suction Estimated Blood Loss (mL): 10 Description of Procedure: Patient was brought back to the room and general anesthesia was induced. The abdomen was prepped and draped in usual sterile fashion. An incision was made in the left upper quadrant and a 5 mm port was placed under Visiport fashion. The abdomen was insufflated to 15 mmHg and inspected. There were no injuries from entry. Next the abdomen was inspected medially and there were 2 areas of adhesions and 2 hernias. The symptomatic hernia that was becoming incarcerated was superior and there was a larger one inferior. There was a bridge of fascia between the 2. Next in the left lower quadrant another 5 mm port was placed and using the harmonic the adhesions to the anterior abdominal wall were taken down. Next an incision was made from just above the umbilicus to the superior hernia and deepened with electrocautery. The hernia sacs were identified and I dissected free using electrocautery. The hernia sacs were each resected and sent for pathology. The inferior and superior defect were each closed in a transverse fashion using interrupted #1 Prolene sutures. This adequately closed both defects with little tension. Due to the patient's severe allergies and rejection of multiple implants mesh was not used. The subcutaneous tissue was irrigated and suctioned dry. Hemostasis was obtained using electrocautery. A subcutaneous drain was placed laterally and tunneled to the large subcutaneous defect from the hernia sac. It was sutured in place using a nylon suture and placed to bulb suction. Next local anesthetic was injected into the port sites and the midline incision and the deep tissue was closed with interrupted 2-0 Vicryl sutures as well as interrupted 4-0 Monocryl sutures under the skin. Port sites were each closed with an interrupted 4-0 Monocryl suture. Steri-Strips and bandages were applied. Patient was then taken to PACU in stable condition and tolerated the procedure well. - Admit VTE Documentation VTE Mechan Device Prophylaxis: SCD's
[2019-11-03 10:00] VITALS: BP 121/79; BP 126/87; PULSE 88; RESP 16; TEMP 36.6; O2SAT 98
--- NOTE | 2019-11-03 10:00 | DCINST_ITS ---
Discharge Diet: Light diet - advance as tolerated Discharge Activity: Return to Normal Activity, May Not Drive - for 2-3 days or while taking narcotic pain meds., May Shower - with the bandage in place 1-2 days after surgery. Lifting Restrictions: 20 pounds for 6 weeks. Additional Activity Instructions:: Climbing stairs is fine, walking is encouraged. Sitting in bed may be uncomfortable. Sitting up using your lateral muscles (sitting up sideways) is usually more comfortable. Do not drive, work heavy equipment of sign legal documents for 24 hours. Pain medications may cause nausea, you should typically eat light foods as you take your pain medications. Pain medications may also cause constipation. If you have difficulty with this, discuss with your doctor. Call your doctor if your incision/area has: Continuous Slow Oozing, Sudden Increased Bleeding, Increased Pain/ Swelling, Increased Redness, Foul Smelling Discharge Call your doctor if you observe: Fever of 101 or Higher Suture Line Care: Avoid Pulling/Pushing, Avoid Pinching/Bending Change Dressing in (Days):: 3 - Leave steri-strips for 1 week. May protect with a guaze bandaid. Cleanse incision/area with: Keep Dressing Clean & Dry Drain: Suction, - - Record daily output amount. Allergies/Adverse Reactions: Allergies amoxicillin [From Augmentin] Allergy (Severe, Verified 11/03/19 07:26) Diarrhea clavulanic acid [From Augmentin] Allergy (Severe, Verified 11/03/19 07:26) Diarrhea chlorhexidine [From Marge-Hex] Allergy (Mild, Verified 11/03/19 07:26) Itching Iodine and Iodide Containing Produc Allergy (Mild, Verified 11/03/19 07:26) Itching ampicillin Adverse Reaction (Severe, Verified 11/03/19 07:26) Diarrhea Medications to take at Discharge acetaminophen 500 mg capsule 500 mg PO Q6H PRN 05/29/17 lysine 500 mg tablet 1,000 mg PO QDAY 05/29/17 cetirizine 10 mg tablet 10 mg PO DAILY 08/13/18 cholecalciferol (vitamin D3) 125 mcg (5,000 unit) capsule 5,000 unit PO DAILY 08/13/18 ajckxsrptrcv-shfnutge-ztssbj 1 tab PO DAILY 08/13/18 gabapentin 300 mg capsule 300 mg PO TID #270 cap 10/23/19 losartan 100 mg-hydrochlorothiazide 12.5 mg tablet 1 tab PO QDAY #90 tab 10/23/19 montelukast 10 mg tablet 10 mg PO QHS #90 tab 10/23/19 mecobalamin (vitamin B12) 5,000 mcg disintegrating tablet 5,000 mcg PO DAILY 10/29/19 Budesonide/Formoterol 160/4.5 [Symbicort 160/4.5 Mcg Inhaler (SP)] 2 puff INHALATION PRN PRN 10/30/19 Oxycodone HCl/Acetaminophen [Percocet 5-325 mg Tablet] 1 - 2 tab PO Q6H PRN 5 Days #40 tab 11/03/19 The following prescriptions were given: Oxycodone HCl/Acetaminophen [Percocet 5-325 mg Tablet] 1 - 2 tab PO Q6H PRN 5 Days #40 tab PRN Reason: Pain Score 4-10/10 Transmission Status: Sent to [facility] Test Results: Test results from this visit will be discussed in further detail at your follow- up appointment, if applicable. Please Follow Up With: Chapo Recinos MD When: Please call to schedule 1 week follow up appointment. [phone]
[2019-11-03 10:15] VITALS: BP 121/79; BP 126/82; PULSE 70; RESP 16; O2SAT 97
[2019-11-03 10:30] VITALS: BP 121/79; BP 129/82; PULSE 73; RESP 16; TEMP 36.4; O2SAT 100
[2019-11-03] MEDS: Acetaminophen 325 MG Tablet PO (11:03)
[2019-11-03] MEDS: oxyCODONE 5 MG Tablet PO (11:03)
[2019-11-03 12:26] VITALS: BP 121/79; BP 158/95; PULSE 57; RESP 18; TEMP 36.1; O2SAT 100
== END 2019-11-03 12:27 | disposition home or self-care (01) ==
LOC: SDC 06:54 → AC 06:55
PROVIDERS: Anesthesiology; PCP Family Medicine; Referring Provider Surgery; Visit Provider Surgery
PROC: 0WQF4ZZ Repair Abdominal Wall, Percutaneous Endoscopic Approach (ICD-10-PCS; CPT 49561; principal; 2019-11-03 08:40)
DX: K43.2 Incisional hernia without obstruction or gangrene (principal); Z53.31 Laparoscopic surgical procedure converted to open procedure; J45.909 Unspecified asthma, uncomplicated; Z79.51 Long term (current) use of inhaled steroids; Z79.899 Other long term (current) drug therapy; Z86.718 Personal history of other venous thrombosis and embolism; Z87.891 Personal history of nicotine dependence
CPT/HCPCS: 49561; 36415; 80048; 88302; 93005; J7120; J2405

== ENCOUNTER 2020-06-01 13:57 | Observation (INO) | payer OTHER, SELFPAY ==
[2020-05-10 08:55] VITALS: BMI 34.3
[2020-06-01] VITALS (15 sets, daily range): BP systolic 119–142; BP diastolic 75–90; PULSE 61–96; RESP 16–18; TEMP 36.3–36.9; O2SAT 92–97; BMI 33.8; BMI 34.3
--- NOTE | 2020-06-01 | HERN_PTH ---
PATIENT: VIANNEY GONZALEZ LOC: MS3 U#:[id number] AGE/SX: 59/M ROOM: MS309 RE06/01/[address]: Dr. Chapo Recinos MD : [id number] BED: 1 DIS: 06/02/2020 SPEC #: [id number] RECD: 06/01/20 14:07 STATUS: MACHO LAWRENCE #: [id number] CHRIS: 06/01/20 00:[address]: Chapo Recinos DEPT: SURGICAL PATHOLOGY RECD BY: Demetrio Zaman ENTERED: 06/02/20 07:41 SP TYPE: Hernia OTHR DR: Dr. Erlin Bella, DO Tissues: HERNIA Procedures: Surgery Specimen Level II HEADER OPERATION: Recurrent ventral hernia repair with mesh PRE-OP DIAGNOSIS: Recurrent ventral incisional hernia TISSUE SUBMITTED: Hernia sac MICROSCOPIC DIAGNOSIS Hernia sac: A piece of fibroadipose and fibroconnective tissue, consistent with hernia sac with chronic inflammation and reactive changes. SJ:glenroy 06/03/2020 MICROSCOPIC DESCRIPTION Slides are reviewed. GROSS DESCRIPTION Received in fixative is one container labeled with the patient's name and designated hernia sac. The specimen consists of a piece of pink, congested sac measuring 3 cm in length and up to 2.5 cm in diameter. Sections do not reveal any mass lesion. Assistant To The Dean sections are submitted in one cassette. / VINICIO:glenroy 06/02/20 TC:5 CPT: 51679
[2020-06-01] MEDS: Lactated Ringers 1,000 ML 100 ML IV ×3 (10:02→14:46)
[2020-06-01 10:05] LABS: Anion Gap 5 (5-15); BUN 22 mg/dL (7-18); Calcium,Total 8.8 mg/dL (8.5-10.1); Chloride 107 mmol/L (98-107); Creatinine, Serum 1.05 mg/dL (0.70-1.30); EST Glomerular Filtration Rate 77 mL/min (>60); Est Glom Filt Rate - Afr Amer 93 mL/min (>60); Estimated Creatinine Clearance 84.17 ml/min; Glucose 130 mg/dL (74-106); Sodium Level 138 mmol/L (136-145)
--- NOTE | 2020-06-01 10:32 | PCM.HP.BLA ---
Problem List (1) Recurrent ventral incisional hernia Status: Acute History and Physical Date of Admission: 06/01/20 Intake Vital Signs 05/10/20 Height 6 ft 05/10/20 Weight: 253 lb 6 oz 05/10/20 BMI 34.3 05/10/20 BP 147/81 H 05/10/20 Blood Pressure Location Rt brachial 05/10/20 Position Sitting 05/10/20 Respiration 20 H 05/10/20 Pulse 84 05/10/20 Pulse Source NIBP 05/10/20 Temp 98.4 F 05/10/20 Temp Source Temporal 05/10/20 Pulse Oximetry (%) 97 05/10/20 Oxygen Delivery Method room air Intake Visit Reasons: RECURRENT HERNIA, PAIN Chief Complaint: recurrent ventral incisional hernia Can Filling Machine Operator Required: No Is patient in pain?: No Allergies amoxicillin [From Augmentin] Allergy (Severe, Verified 05/10/20 08:36) Diarrhea clavulanic acid [From Augmentin] Allergy (Severe, Verified 05/10/20 08:36) Diarrhea chlorhexidine [From Marge-Hex] Allergy (Mild, Verified 05/10/20 08:36) Itching contact metal agent Allergy (Mild, Verified 05/10/20 08:36) rash Iodine and Iodide Containing Produc Allergy (Mild, Verified 05/10/20 08:36) Itching ampicillin Adverse Reaction (Severe, Verified 05/10/20 08:36) Diarrhea Medications acetaminophen 500 mg capsule 500 mg PO Q6H PRN 05/29/17 [History Confirmed 05/10/20] lysine 500 mg tablet 1,000 mg PO QDAY 05/29/17 [History Confirmed 05/10/20] cetirizine 10 mg tablet 10 mg PO DAILY 08/13/18 [History Confirmed 05/10/20] cholecalciferol (vitamin D3) 125 mcg (5,000 unit) capsule 5,000 unit PO DAILY 08/13/18 [History Confirmed 05/10/20] mwlmbegivfbp-umweslka-gigyww tablet 1 tab PO DAILY 08/13/18 [History Confirmed 05/10/20] mecobalamin (vitamin B12) 5,000 mcg disintegrating tablet 5,000 mcg PO DAILY 10/29/19 [History Confirmed 05/10/20] fluticasone propionate 50 mcg/actuation nasal spray,suspension 2 spray INTRANASAL DAILY #15.8 ml 01/06/20 [Rx Confirmed 05/10/20] nitroglycerin 2 % transdermal ointment 1 inch TRANSDERMAL .Q8hrs #30 g 01/06/20 [Rx Confirmed 05/10/20] gabapentin 300 mg capsule 300 mg PO TID #270 cap 03/10/20 [Rx Confirmed 05/10/20] losartan 100 mg-hydrochlorothiazide 12.5 mg tablet 1 tab PO QDAY #90 tab 03/10/20 [Rx Confirmed 05/10/20] montelukast 10 mg tablet 10 mg PO QHS #30 tab 03/10/20 [Rx Confirmed 05/10/20] PENDING SALE TO [facility] Medical History History of pneumonia (Chronic) Asthma (Chronic) Seasonal allergies (Chronic) Back pain (Acute) Difficulty balancing (Acute) Incontinence (Acute) Limb weakness (Acute) SOB (shortness of breath) (Acute) Surgical History History of appendectomy (Acute) History of carpal tunnel repair (Acute) History of hand surgery (Acute) History of incisional hernia repair (Acute ~10/2019) History of lumbar fusion (Acute) History of sinus surgery (Acute) Family History Father Asthma Bone cancer Myocardial infarction Mother Myocardial infarction Hypertension Grandmother Myocardial infarction Grandmother Myocardial infarction Grandfather Myocardial infarction CVA (cerebral vascular accident) Brother Myocardial infarction Hypertension Grandfather Parkinson disease Other Diabetes Social History (Updated 05/10/20 @ 16:[address] Chapo Recinos MD) Smoking Status: Former smoker alcohol intake: current alcohol intake frequency: holidays/special occasions only substance use type: does not use what type of physical activity do you participate in: none HPI HPI HPI: VIANNEY GONZALEZ, is a 59 M who presents to the office today for HPI HPI Surgical H&P: Yes HPI: VIANNEY GONZALEZ, is a 59 M who presents to the office today for ventral hernia which is recurrent. The patient had a incisional ventral hernia repair in October. Patient reports this hernia returned around February and he is having bulging of intestines at the superior portion of his prior incision. His prior incision was for an anterior and posterior spinal repair. ROS General General: No weight change, appetite, fatigue, colon cancer, breast cancer or weakness HEENT HEENT: No difficulty swallowing, eye injury, eye surgery, swollen glands or hoarseness Endo Endocrine: No thyroid disease, diabetes mellitus, thyroid cancer, Hair loss, heat intolerance or cold intolerance Cardio Cardiovascular: No murmur, pacemaker, heart disease, atrial fibrillation, high blood pressure, heart attack, heart stent, palpitations, shortness of breat with exertion or chest pain Psych Psychiatric: No depression, anxiety or hearing voices Resp Respiratory: No shortness of breath, No sleep apnea, No cough, No COPD, Yes asthma, No emphysema, No wheezing Gastro Gastrointestinal: Yes abdominal pain, Yes nausea or vomiting, No diarrhea, Yes constipation, No blood in stool, No acid reflux, No hemorrhoids, No ulcers, No gallbladder problem, No black,tarry stools Andrea Hematologic: No blood thinners, No blood disorders, No bleeding, No anemia, No blood clots Neuro Neurologic: No weakness Exam Const General: cooperative Orientation: alert, oriented x3 Resp Effort & Inspection: normal respiratory effort Auscultation: clear to auscultation bilaterally Cardio Rate: regular rate Rhythm: regular rhythm Heart Sounds: no murmurs GI Inspection: non-distended Palpation: soft, hernia ventral, nontender Assessment & Plan Problems 1. Recurrent ventral incisional hernia K43.2 Plan The patient has recurrence of his ventral incisional hernia. I discussed hernia repair with onlay mesh with him. I recommended onlay mesh as it may be remove easier if he develops a reaction. He has had several reactions implants in the past. I discussed the risks of the procedure including not limited to bleeding, infection, recurrence of hernia and injury to underlying bowel. Patient understands all the risks and is when to proceed. Chapo Recinos MD Pager: [facility] [address] [place] [address], [address] [place] [address] Office: I have re-examined the patient. There are no clinical changes since date of exam.
[2020-06-01] MEDS: Bupiv/Epi 0.25% 30 ML Vial (12:14)
--- NOTE | 2020-06-01 12:35 | PCM.OPRPT ---
Problem List (1) Recurrent ventral incisional hernia Status: Acute Report of Operation Date of Procedure: 06/01/20 Pre-Operative Diagnosis: Recurrent incisional ventral hernia Post-Operative Diagnosis: Same Surgery/Procedure Performed:: Recurrent incisional ventral hernia repair with mesh Specimen's removed: Hernia sac Drains: GWENDOLYN to bulb suction Estimated Blood Loss (mL): 10 Description of Procedure: Patient was brought back the operating room and general anesthesia was induced. The abdomen was prepped and draped in usual sterile fashion. An incision was made over the hernia site which included the superior portion of the prior hernia. Dissection was then deepened down to the hernia. The hernia sac was identified. The hernia sac was dissected free. The hernia sac was opened sharply and inspected. There is no contents from the abdomen currently in the hernia. The underlying bowel appeared healthy. The hernia sac was removed using electrocautery. The underside of the incision was inspected using digital inspection and there were no other hernias. The subcutaneous tissue was dissected free from the anterior fascial wall circumferentially using electrocautery. The fascia at the hernia defect was closed using interrupted 0 PDS sutures. Next a piece of Prolene mesh was placed over the ventral hernia. The mesh was placed in an onlay fashion and it measured 6 x 13 cm. The mesh was sutured to the anterior abdominal wall circumferentially using 0 PDS sutures. Next the cavity was irrigated and suctioned dry and inspected for hemostasis. Hemostasis was obtained using electrocautery. A small chong was made with a scalpel through the left side of the abdomen and hemostat was used to enter the cavity and a 15 [place] round drain was placed in the cavity. The drain was sutured to the skin using 3-0 nylon suture. The incision was injected with local anesthetic. The subcutaneous tissue was then closed with interrupted 3-0 Vicryl sutures and the skin was closed with running 3-0 Monocryl suture. Steri-Strips and bandage were then applied and the GWENDOLYN was placed to bulb suction. Abdominal binder was placed and the patient was awoken and taken to PACU in stable condition. Grafts/Implants Used: prolene mesh onlay - Admit VTE Documentation VTE Mechan Device Prophylaxis: SCD's
--- NOTE | 2020-06-01 12:45 | DCINST_ITS ---
Discharge Diet: Light diet - advance as tolerated Discharge Activity: Return to Normal Activity, May Not Drive - for 2-3 days or while taking narcotic pain meds., May Shower - with the bandage in place 1-2 days after surgery. Lifting Restrictions: 20 pounds for 8 weeks. Additional Activity Instructions:: Climbing stairs is fine, walking is encouraged. Sitting in bed may be uncomfortable. Sitting up using your lateral muscles (sitting up sideways) is usually more comfortable. Do not drive, work heavy equipment of sign legal documents for 24 hours. An ice pack can provide more comfort. Pain medications may cause nausea, you should typically eat light foods as you take your pain medications. Pain medications may also cause constipation. If you have difficulty with this, discuss with your doctor. Call your doctor if your incision/area has: Continuous Slow Oozing, Sudden Increased Bleeding, Increased Pain/ Swelling, Increased Redness, Foul Smelling Discharge Call your doctor if you observe: Fever of 101 or Higher Suture Line Care: Avoid Pulling/Pushing, Avoid Pinching/Bending Change Dressing in (Days):: 3 - Leave steri-strips for 1 week. May protect with a guaze bandaid. Cleanse incision/area with: Keep Dressing Clean & Dry Drain: Suction Additional Dressing/Incision Instructions:: Record drain output. Allergies/Adverse Reactions: Allergies amoxicillin [From Augmentin] Allergy (Severe, Verified 06/01/20 09:56) Diarrhea clavulanic acid [From Augmentin] Allergy (Severe, Verified 06/01/20 09:56) Diarrhea chlorhexidine [From Marge-Hex] Allergy (Mild, Verified 06/01/20 09:56) Itching contact metal agent Allergy (Mild, Verified 06/01/20 09:56) rash Iodine and Iodide Containing Produc Allergy (Mild, Verified 06/01/20 09:56) Itching ampicillin Adverse Reaction (Severe, Verified 06/01/20 09:56) Diarrhea Medications to take at Discharge lysine 500 mg tablet 1,000 mg PO QDAY 05/29/17 cetirizine 10 mg tablet 10 mg PO DAILY 08/13/18 cholecalciferol (vitamin D3) 125 mcg (5,000 unit) capsule 5,000 unit PO DAILY 08/13/18 sxyuldsuvbob-tpmfebaq-sqbjso tablet 1 tab PO DAILY 08/13/18 mecobalamin (vitamin B12) 5,000 mcg disintegrating tablet 5,000 mcg PO DAILY 10/29/19 gabapentin 300 mg capsule 300 mg PO TID #270 cap 03/10/20 losartan 100 mg-hydrochlorothiazide 12.5 mg tablet 1 tab PO QDAY #90 tab 03/10/20 montelukast 10 mg tablet 10 mg PO QHS #30 tab 03/10/20 Fluticasone Propionate 2 spray INTRANASAL DAILY PRN 05/25/20 Nitroglycerin [Nitro-Bid] 1 inch TD TID 05/25/20 Oxycodone HCl/Acetaminophen [Percocet 5-325 mg Tablet] 1 - 2 tab PO Q6H PRN PRN 5 Days #40 tablet 06/01/20 The following prescriptions were given: Oxycodone HCl/Acetaminophen [Percocet 5-325 mg Tablet] 1 - 2 tab PO Q6H PRN PRN 5 Days #40 tablet PRN Reason: Pain Score 4-10/10 Transmission Status: Sent to [facility] Primary Care Physician: Erlin Bella DO [Primary Care Provider] - Test Results: Test results from this visit will be discussed in further detail at your follow- up appointment, if applicable. Please Follow Up With: Chapo Recinos MD When: Please call to schedule 1 week follow up appointment. [phone]
--- NOTE | 2020-06-01 13:56 | PCM.PN.BLA ---
Progress Note pt still having uncontrolled pain so he will be admitted for observation and pain control. STROKE Vital Signs/Narrative: Vital Signs Temp Pulse Resp BP Pulse Ox 06/01/20 13:15 73 16 130/89 H 96 06/01/20 13:00 80 16 123/75 H 96 06/01/20 12:45 72 16 127/79 H 96 06/01/20 12:30 86 16 119/79 93 06/01/20 12:20 97.8 F 96 16 130/90 H 94
[2020-06-01] MEDS: Ketorolac 15 MG/ML Vial IV ×2 (16:18→22:21)
[2020-06-01] MEDS: Gabapentin 300 MG Capsule PO ×2 (16:18→22:21)
[2020-06-01] MEDS: 0.9% Normal Saline 1,000 ML 60 ML IV (16:18)
[2020-06-01] MEDS: oxyCODONE 5 MG Tablet PO (19:26)
[2020-06-01] MEDS: Montelukast 10 MG Tablet PO (22:21)
[2020-06-01] MEDS: Docusate Sodium 100 MG Capsule PO (22:21)
[2020-06-02] MEDS: HYDROmorphone 1 MG/ML Syringe IV (00:07)
[2020-06-02 03:14] VITALS: BP 121/69; PULSE 57; RESP 16; TEMP 36.7; O2SAT 95
[2020-06-02] MEDS: Gabapentin 300 MG Capsule PO (05:31)
[2020-06-02] MEDS: Ketorolac 15 MG/ML Vial IV (05:31)
[2020-06-02 09:27] VITALS: BP 141/78; PULSE 81; RESP 18; TEMP 36.6; O2SAT 97
[2020-06-02] MEDS: oxyCODONE 5 MG Tablet PO (09:36)
== END 2020-06-02 10:11 | disposition home or self-care (01) ==
LOC: MS3 06-02 07:29
PROVIDERS: Anesthesiology; Admitting Provider Surgery; PCP Family Medicine; Referring Provider Surgery; Visit Provider Surgery
PROC: (CPT 49565; principal; 2020-06-01 10:45)
DX: K43.2 Incisional hernia without obstruction or gangrene (principal); Z86.718 Personal history of other venous thrombosis and embolism; Z79.899 Other long term (current) drug therapy; Z79.51 Long term (current) use of inhaled steroids; J45.909 Unspecified asthma, uncomplicated; Z87.891 Personal history of nicotine dependence
CPT/HCPCS: 00832; 49565; 49568; 80048; 88302; 96374; 96375; 96376; 99218; 99251; J7030; J7120; C1781; G0378; G0379; G0463; J2405

== ENCOUNTER 2020-06-08 19:28 | Inpatient (IN) | payer OTHER, SELFPAY ==
[2020-06-01 16:12] VITALS: BMI 34.3
[2020-06-08] VITALS (7 sets, daily range): BP systolic 114–156; BP diastolic 67–87; PULSE 82–115; RESP 14–18; TEMP 36.9–37.8; O2SAT 93–98; BMI 33.7; BMI 34.7
--- NOTE | 2020-06-08 19:47 | EKG12_ITS ---
Test Reason : ALLERGIC REACTION Blood Pressure : / mmHG Vent. Rate : 097 BPM Atrial Rate : 097 BPM P-R Int : 156 ms QRS Dur : 084 ms QT Int : 330 ms P-R-T Axes : 056 -18 019 degrees QTc Int : 419 ms Normal sinus rhythm Normal ECG Confirmed by DESMOND BROWN, EMI ([id number]), order editor BABATUNDE WRIGHT ([id number]) on 06/10/2020 11:36:06 AM Referred By: MARIE Confirmed By:EMI LOGAN MD
--- NOTE | 2020-06-08 19:48 | CT_ITS ---
STUDY: CT ABDOMEN AND PELVIS WITHOUT CONTRAST REASON FOR EXAM: Male, 59 years old. abdominal pain with recent surgery RADIATION DOSAGE (If Supplied By Facility): CTDIvol = ( 20.29 ) mGy, DLP = ( 1079.72 ) mGycm TECHNIQUE: Transaxial images were obtained from the dome of the diaphragm to the symphysis pubis without oral contrast, and without intravenous contrast. Sagittal and coronal images were reconstructed. Individualized dose optimization techniques were used for this CT. COMPARISON: None. FINDINGS: There is minor atelectasis within the dependent portion of the lungs.. The visualized portions of the heart are within normal limits. Small hiatal hernia is noted. Normal liver. Contracted thick-walled gallbladder without calcified stones possibly physiologic. If concern for gallbladder disease ultrasound recommended. Normal spleen. Normal pancreas. Normal bilateral adrenal glands. Tiny nonobstructing calculus in the right kidney. No evidence for renal obstruction or mass Normal visualized stomach. Normal small intestine. Normal colon. No evidence for acute appendicitis Mild atherosclerotic changes of the aorta without evidence for aneurysm. Normal inferior vena cava. Normal retroperitoneum. Normal urinary bladder. Mild nonspecific prostatic enlargement There is cellulitis and phlegmonous change in the subcutaneous fat in the periumbilical region status post ventral hernia repair associated percutaneously placed drain. There is no well-defined abscess at this time.. Lumbar spine demonstrates degenerative changes.. Postop changes status post bilateral laminectomy and fusion at L4-5 and L5-S1 CT/Abdomen/Pelvis without Cont IMPRESSION: Diffuse cellulitis and phlegmonous changes in the periumbilical fat without well-defined abscess. Other incidental findings as above Electronically Signed: Viktor Chavez MD at 21:29 EDT , Service support ,
--- NOTE | 2020-06-08 20:07 | ED.VIS.GEN ---
History of Present Illness Chief Complaint: Allergic Reaction Informant: Patient Narrative: 59-year-old male presents with concern for multiple complaints including fever, abdominal pain, headache, cough. States it began over the past 24 hours. States that he was seen by his surgeon being 1 week postoperative from a ventral hernia repair today. There was some redness around his drain site so he was started on Bactrim. States that his symptoms of worsened throughout the day. Had a fever of 100.7 at home. Came in for further evaluation. States he did begin having a slight cough today which is nonproductive. Denies any vomiting but does admit to nausea. Denies any urinary symptoms. Past Medical History - Allergies and Home Meds Allergies/Adverse Reactions: Allergies amoxicillin [From Augmentin] Allergy (Severe, Verified 06/08/20 19:32) Diarrhea clavulanic acid [From Augmentin] Allergy (Severe, Verified 06/08/20 19:32) Diarrhea chlorhexidine [From Marge-Hex] Allergy (Mild, Verified 06/08/20 19:32) Itching contact metal agent Allergy (Mild, Verified 06/08/20 19:32) rash Iodine and Iodide Containing Produc Allergy (Mild, Verified 06/08/20 19:32) Itching ampicillin Adverse Reaction (Severe, Verified 06/08/20 19:32) Diarrhea Primary Care Physician: Erlin Bella DO [Primary Care Provider] - Prior records reviewed: Yes Past Medical History: - - asthma Surgical History: - - ventral hernia repair Lives: Spouse/ Significant Other Smoking Status: Former smoker Alcohol: None Drugs: None Review of Systems General: Reports: Fever, Malaise. Denies: Chills, Sweats Eyes: Denies: Visual changes - bilaterally, Diplopia ENT: Denies: Rhinorrhea, Sore throat Cardiovascular: Denies: Chest pain, Palpitations Respiratory: Reports: Cough. Denies: Dyspnea, Dyspnea on exertion Gastrointestinal: Reports: Abdominal pain, Nausea. Denies: Vomiting, Diarrhea, Melena, Hematochezia Genitourinary: Denies: Dysuria, Hematuria, Frequency Musculoskeletal: Denies: Back pain, Extremity Pain Skin: Denies: Rash, Wounds Neurological: Reports: Headache. Denies: Weakness, Numbness Allergy: Reports: - - redness around drain site Physical Exam Vital Signs/Narrative: Vital Signs Temp Pulse Resp BP Pulse Ox 06/08/20 19:58 100.1 F H 06/08/20 19:43 100.1 F H 106 H 156/87 H 95 06/08/20 19:29 98.7 F 115 H 18 126/84 H 93 Inital Vital Signs reviewed: Yes General: Well nourished, Well developed, No Acute Distress Head: Normocephalic, Atraumatic Eyes: Perrl, EOMI ENT: Moist mucous membranes, No rhinorrhea Neck: Supple, Nontender Cardiovascular: Regular rhythm, No murmurs, Tachycardia Respiratory: No distress, CTA bilaterally, Chest nontender Abdomen: Soft, Nondistended, Normal bowel sounds, - - GWENDOLYN in place with erythema surrounding. Well healing midline abdominal incision. TTP on the R middle abdomen. Back: Nontender, Normal Inspection Extremities: Nontender, No edema Skin: Normal color, No rash Neurological: Alert, Oriented x3, Cranial nerves II-XII grossly intact, Normal Strength, Normal Sensation Psychological: Normal affect, Normal Mood Diagnostic/Tx/Re-eval Chest X-Ray - ED: 1 View, Read by ED Physician, Read by Radiologist, Normal Clinical Impression(s) from Imaging Studies Abdomen/Pelvis CT 06/08/20 19:48 IMPRESSION: Diffuse cellulitis and phlegmonous changes in the periumbilical fat without well-defined abscess. Other incidental findings as above Electronically Signed: Viktor Chavez MD at 21:29 EDT , Service support , Chest X-Ray 06/08/20 20:29 IMPRESSION: Mild right basilar atelectasis in association with elevation of right hemidiaphragm Electronically Signed: Viktor Chavez MD at 20:57 EDT , Service support , Laboratory Data 06/08/20 06/08/20 06/08/20 20:05 20:05 20:05 WBC 12.2 H RBC 4.27 L Hgb 13.2 Hct 40.1 MCV 93.9 MCH 30.9 MCHC 32.9 RDW Std Deviation 43.9 RDW Coeff of Alysa 12.7 Plt Count 182 MPV 10.4 Immature Gran % (Auto) 0.500 Neut % (Auto) 73.8 H Lymph % (Auto) 13.3 L [place] % (Auto) 10.4 H Eos % (Auto) 1.5 Baso % (Auto) 0.5 Absolute Neuts (auto) 9.0 H Absolute Lymphs (auto) 1.62 Nucleated RBC % 0 PT 13.3 INR 1.1 APTT 29.4 Sodium 137 Potassium 3.6 Chloride 105 Carbon Dioxide 25.0 Anion Gap 7 BUN 20 H Creatinine 1.19 Estim Creat Clear Calc 74.27 Est GFR (MDRD) Af Amer 81 Est GFR (MDRD) Non-Af 67 BUN/Creatinine Ratio 16.8 Glucose 172 H Lactic Acid Calcium 8.9 Total Bilirubin 0.50 AST 13 L ALT 28 Alkaline Phosphatase 121 H Troponin I < 0.015 Total Protein 6.9 Albumin 3.7 Globulin 3.2 Albumin/Globulin Ratio 1.2 06/08/20 20:05 WBC RBC Hgb Hct MCV MCH MCHC RDW Std Deviation RDW Coeff of Alysa Plt Count MPV Immature Gran % (Auto) Neut % (Auto) Lymph % (Auto) [place] % (Auto) Eos % (Auto) Baso % (Auto) Absolute Neuts (auto) Absolute Lymphs (auto) Nucleated RBC % PT INR APTT Sodium Potassium Chloride Carbon Dioxide Anion Gap BUN Creatinine Estim Creat Clear Calc Est GFR (MDRD) Af Amer Est GFR (MDRD) Non-Af BUN/Creatinine Ratio Glucose Lactic Acid 1.8 Calcium Total Bilirubin AST ALT Alkaline Phosphatase Troponin I Total Protein Albumin Globulin Albumin/Globulin Ratio - Rhythm Strip Rhythm Strip: Sinus Rhythm Rate: 97 Ectopy: None - EKG Initial EKG Interpretation: Sinus Rhythm - Sinus rhythm at 97 bpm. WI interval of 156 ms. QTC of 419 ms. No evidence of ST elevation or depression at this time. - Medical Decision Making Patient febrile and tachycardic upon arrival. Given 1 L normal saline, Tylenol, Zofran. Patient does not want pain medication at this time. Patient did take Bactrim a few hours ago. 12,000 white blood cell count without a lactic acidosis. CT of the abdomen pelvis with out IV contrast given iodine allergy shows diffuse cellulitis throughout the subcutaneous abdominal wall as well as phlegmon is changes within the periumbilical fat without abscess formation. Spoke with general surgeon Dr. Daly, who advised Cipro and Flagyl as well as admission. Patient also be given Toradol for headache that he is having. On reevaluation at 2140 patient's heart rate is improved and he is no longer febrile. Stable at time of admission. Impression: 1. Abdominal wall cellulitis 2. Leukocytosis 3. Fever ED Disposition - Plan for ED Patient: Disposition: Acute Care [facility] Referrals: Erlin Bella DO [Primary Care Provider] -
[2020-06-08] MEDS: Ondansetron 4 MG/2 ML Vial IV (20:11)
[2020-06-08] MEDS: Acetaminophen 500 MG Tablet 1000 MG PO (20:12)
[2020-06-08] MEDS: 0.9% Normal Saline 1,000 ML 999 ML IV (20:12)
[2020-06-08 20:16] LABS: Absolute Lymphocyte Count 1.62 X10^3/uL (0.83-4.51); Basophil# 0.06 X10^3/uL; Basophil% 0.5 % (0-1); Eosinophil# 0.18 X10^3/uL; Eosinophils% 1.5 % (0-5); Hematocrit 40.1 % (40-54); Hemoglobin 13.2 g/dL (13.0-16.5); Lymphocyte # 1.62 X10^3/ul (0.83-4.51); Lymphocyte % 13.3 % (19-41); Mean Corp Hgb Conc 32.9 g/dL (32-36); Mean Corpuscular Hgb 30.9 pg (27.0-32.0); Mean Corpuscular Volume 93.9 fL (80-94); Mean Platelet Vol. 10.4 fl (6.2-12.0); Monocyte# 1.26 X10^3/uL; Monocyte% 10.4 % (0-10); NRBC Flagged by Analyzer 0 % (0-5); Neutrophil # 8.98 X10^3/uL (2.7-7.7); Neutrophil % 73.8 % (47-70); Platelet Count 182 K/mm3 (150-450); RBC Distribution Width CV 12.7 % (11.6-14.6); RBC Distribution Width SD 43.9 fl (35.1-43.9); Red Blood Count 4.27 M/mm3 (4.6-6.2); White Blood Count 12.2 K/mm3 (4.4-11.0)
[2020-06-08 20:25] LABS: International Normalized Ratio 1.1; Prothrombin Time (Protime)PT. 13.3 SECONDS (11.7-14.9)
[2020-06-08 20:26] LABS: Partial Thromboplast Time 29.4 Seconds (24.1-36.2)
--- NOTE | 2020-06-08 20:29 | RAD_ITS ---
STUDY: X-RAY CHEST REASON FOR EXAM: Male, 59 years old. cough TECHNIQUE: AP portable COMPARISON: 05/29/2017 FINDINGS: Elevated right hemidiaphragm and mild basilar atelectasis.. There is no demonstrated pleural abnormality. Normal size heart. Normal mediastinum and maru. Normal visualized pulmonary arteries. Normal visualized aortic arch and descending thoracic aorta. Normal visualized thoracic spine. Normal visualized ribs, clavicles, and shoulders. There is no demonstrated abnormality of the visualized soft tissue structures of the upper abdomen. RAD/Chest 1 View (Portable) IMPRESSION: Mild right basilar atelectasis in association with elevation of right hemidiaphragm Electronically Signed: Viktor Chavez MD at 20:57 EDT , Service support ,
[2020-06-08 20:35] LABS: ALB/GLOB Ratio 1.2 RATIO (0.9-2.4); AST(SGOT) 13 U/L (15-37); Alanine Aminotransfer ALT/SGPT 28 U/L (16-61); Albumin, Serum 3.7 g/dL (3.2-5.0); Alkaline Phosphatase 121 U/L (45-117); Anion Gap 7 (5-15); BUN 20 mg/dL (7-18); BUN/Creat Ratio 16.8 RATIO (10-20); Calcium,Total 8.9 mg/dL (8.5-10.1); Chloride 105 mmol/L (98-107); Creatinine, Serum 1.19 mg/dL (0.70-1.30); EST Glomerular Filtration Rate 67 mL/min (>60); Est Glom Filt Rate - Afr Amer 81 mL/min (>60); Estimated Creatinine Clearance 74.27 ml/min; Globulin 3.2 g/dL (2.2-4.2); Glucose 172 mg/dL (74-106); Potassium 3.6 mmol/L (3.5-5.1); Protein, Total 6.9 g/dL (6.4-8.2); Sodium Level 137 mmol/L (136-145)
[2020-06-08 20:40] LABS: Lactic Acid 1.8 mmol/L (0.4-1.9)
[2020-06-08 22:06] LABS: Bacteria 0 SEEN /hpf (None Seen); Mucous, Urine 0 SEEN /hpf (<or=2+); White Blood Cells 0 SEEN /hpf (0-5)
[2020-06-08] MEDS: Ketorolac 15 MG/ML Vial IV (22:06)
[2020-06-08 22:07] LABS: Color, Urine Yellow (Yellow); Glucose, Dipstick Normal (Normal); Ketone-Dipstick Negative (Negative); Leukocyte Esterase-Dipstick Negative /ul (Negative); Nitrite-Dipstick Negative (Negative); Occult Blood-Urine Negative /ul (Negative); Protein-Dipstick Negative (Negative); Urine Bilirubin Dipstick Negative (Negative); Urine Clarity Clear (Clear); Urine Urobilinogen Normal (Normal); Urine pH 6.5 (5.0 - 8.0)
[2020-06-08 22:58] LABS: Red Blood Cells-Urine 0-5 SEEN /hpf (0-5); Squamous Epithelial Cells - UA 0-5 SEEN /hpf (0-5)
[2020-06-09] MEDS: 0.9% Normal Saline 1,000 ML 60 ML IV (00:44)
[2020-06-09] MEDS: Acetaminophen 325 MG Tablet 650 MG PO ×3 (03:13→19:49)
[2020-06-09 03:34] VITALS: BP 135/69; PULSE 78; RESP 18; TEMP 36.6; O2SAT 95
[2020-06-09 06:01] LABS: Absolute Lymphocyte Count 1.54 X10^3/uL (0.83-4.51); Absolute Neutrophil Count 6.9 X10^3/uL (2.0-7.7); Basophil# 0.06 X10^3/uL; Basophil% 0.6 % (0-1); Eosinophil# 0.27 X10^3/uL; Eosinophils% 2.7 % (0-5); Hematocrit 37.5 % (40-54); Lymphocyte # 1.54 X10^3/ul (0.83-4.51); Lymphocyte % 15.5 % (19-41); Mean Corpuscular Hgb 30.5 pg (27.0-32.0); Mean Corpuscular Volume 95.2 fL (80-94); Mean Platelet Vol. 10.5 fl (6.2-12.0); Monocyte# 1.15 X10^3/uL; Monocyte% 11.6 % (0-10); NRBC Flagged by Analyzer 0 % (0-5); Neutrophil # 6.87 X10^3/uL (2.7-7.7); Neutrophil % 69.2 % (47-70); Platelet Count 142 K/mm3 (150-450); RBC Distribution Width CV 12.9 % (11.6-14.6); RBC Distribution Width SD 45.1 fl (35.1-43.9); Red Blood Count 3.94 M/mm3 (4.6-6.2); White Blood Count 9.9 K/mm3 (4.4-11.0)
[2020-06-09 06:27] LABS: Anion Gap 6 (5-15); BUN 16 mg/dL (7-18); BUN/Creat Ratio 15.1 RATIO (10-20); Calcium,Total 8.2 mg/dL (8.5-10.1); Chloride 108 mmol/L (98-107); Creatinine, Serum 1.06 mg/dL (0.70-1.30); EST Glomerular Filtration Rate 76 mL/min (>60); Est Glom Filt Rate - Afr Amer 92 mL/min (>60); Estimated Creatinine Clearance 83.38 ml/min; Glucose 188 mg/dL (74-106); Potassium 3.8 mmol/L (3.5-5.1); Sodium Level 139 mmol/L (136-145)
[2020-06-09 08:30] VITALS: BP 134/71; PULSE 80; RESP 16; TEMP 37.1; O2SAT 96
--- NOTE | 2020-06-09 09:22 | PCM.HP.STD ---
Problem List (1) Postoperative cellulitis of surgical wound Status: Acute History of Present Illness Date of Admission: 06/09/20 The patient is a 59 year old M patient had open ventral hernia approximately 1 week ago. This was repaired with mesh with a subcutaneous drain in place. He presents to my office yesterday afternoon for follow-up and at that time he was doing well with no issues and the drain was still putting out 50/day. The patient went home on Bactrim for some mild cellulitis around the drain site and then came back to the emergency room later that day with fevers and increasing redness. The patient was also tachycardic with shortness of breath. Past Medical History Past Medical History (Chronic Problems): Chronic Problems (Last Reviewed 05/10/20 @ 08:35 by Glenny Eagle) Left tennis elbow (Chronic) Spinal surgery in prior 3 months (Chronic) Lumbar spinal stenosis (Chronic) Lumbar radiculopathy (Chronic) Failure of fusion (joint)(spinal) (Chronic) Recurrent sinusitis (Chronic) History of pneumonia (Chronic) Asthma (Chronic) Seasonal allergies (Chronic) Medical History: Medical History (Last Reviewed 05/10/20 @ 08:35 by Glenny Eagle) Incontinence (Acute) R32 Back pain (Acute) M54.9 Limb weakness (Acute) R29.898 Difficulty balancing (Acute) R29.818 SOB (shortness of breath) (Acute) R06.02 History of pneumonia (Chronic) Z87.01 Asthma (Chronic) J45.909 Seasonal allergies (Chronic) J30.2 Allergies amoxicillin [From Augmentin] Allergy (Severe, Verified 06/08/20 19:32) Diarrhea clavulanic acid [From Augmentin] Allergy (Severe, Verified 06/08/20 19:32) Diarrhea chlorhexidine [From Marge-Hex] Allergy (Mild, Verified 06/08/20 19:32) Itching contact metal agent Allergy (Mild, Verified 06/08/20 19:32) rash Iodine and Iodide Containing Produc Allergy (Mild, Verified 06/08/20 19:32) Itching ampicillin Adverse Reaction (Severe, Verified 06/08/20 19:32) Diarrhea Home Medications: Ambulatory Orders Medication Instructions Recorded lysine 500 mg tablet 1,000 mg PO QDAY 05/29/17 cetirizine 10 mg tablet 10 mg PO DAILY 08/13/18 cholecalciferol (vitamin D3) 125 5,000 unit PO DAILY 08/13/18 mcg (5,000 unit) capsule [id number] tablet 1 tab PO DAILY 08/13/18 mecobalamin (vitamin B12) 5,000 5,000 mcg PO DAILY 10/29/19 mcg disintegrating tablet Fluticasone Propionate 2 spray INTRANASAL DAILY PRN 05/25/20 Nitroglycerin [Nitro-Bid] 1 inch TD TID 05/25/20 Gabapentin 300 mg PO TID 06/08/20 Losartan/Hydrochlorothiazide 1 tablet PO QDAY 06/08/20 [Losartan-Hctz 100-12.5 mg Tab] Montelukast Sodium [Singulair] 10 mg PO QHS 06/08/20 Sulfamethoxazole/Trimethoprim 1 tablet PO BID 06/08/20 [Sulfamethoxazole-Tmp Ds Tablet] Surgical History: Surgical History (Last Updated 06/08/20 @ 13:56 by Gay Andrew) History of incisional hernia repair (Acute) Onset Date: ~10/2019 Z98.890, Z87.19 06/01/2020 History of sinus surgery (Acute) Z98.890 02/14/18 History of carpal tunnel repair (Acute) Z98.890 Rt x2 History of hand surgery (Acute) Z98.890 13 since 2008 ( Rt hand) History of lumbar fusion (Acute) Z98.1 2005, & 05/02/18 History of appendectomy (Acute) Z90.49 Surgical History: - - ventral hernia repair Lives: Spouse/ Significant Other Smoking Status: Former smoker Alcohol: None Drugs: None Review of Systems Constitutional: Reports: Fever. Denies: Anorexia HEENT: Denies: Difficulty Swallowing Cardiovascular: Denies: Chest Pain Respiratory: Denies: Cough, Shortness of Breath Gastrointestinal: Reports: Abdominal Pain. Denies: Constipation, Hematemesis, Hematochezia, Nausea, Vomiting Skin: Denies: Jaundice Hematologic/ Lymphatic: Denies: Anemia VTE Information - Inpt Only VTE Present on Admission: No VTE Mechan Device Prophylaxis: SCD's - Physical Exam Vitals/I&O's: Vital Signs Temp Pulse Resp BP Pulse Ox 98.8 F 80 16 134/71 H 96 06/09/20 08:30 06/09/20 08:30 06/09/20 08:30 06/09/20 08:30 06/09/20 08:30 Oxygen Delivery Method Room Air Weight: 256 lb 2.834 oz Body Mass Index (BMI) 34.7 Intake and Output for Last 24 Hours 06/07/20 06/08/20 06/09/20 23:59 23:59 23:59 Intake Total 1000 / 1000 250 / 250 Output Total 1100 / 1100 Balance 1000 / 1000 -850 / -850 General: Alert, Oriented x3 Lungs: Normal air movement Cardiovascular: Regular rate, Regular Rhythm Abdomen: Soft, Non Tender, Non-Distended, - - Mild erythema around the drain site Microbiology Past 72 Hours 06/08/20 20:43 Nasal Secretion SARS-CoV-2 Antigen (Rapid) - Final Laboratory Results 06/08/20 20:05: WBC 12.2 H, RBC 4.27 L, Hgb 13.2, Hct 40.1, MCV 93.9, MCH 30.9, MCHC 32.9, RDW Std Deviation 43.9, RDW Coeff of Alysa 12.7, Plt Count 182, MPV 10.4, Immature Gran % (Auto) 0.500, Neut % (Auto) 73.8 H, Lymph % (Auto) 13.3 L, [place] % (Auto) 10.4 H, Eos % (Auto) 1.5, Baso % (Auto) 0.5, Absolute Neuts (auto) 9.0 H, Absolute Lymphs (auto) 1.62, Nucleated RBC % 0 06/08/20 20:05: PT 13.3, INR 1.1, APTT 29.4 06/08/20 20:05: Sodium 137, Potassium 3.6, Chloride 105, Carbon Dioxide 25.0, Anion Gap 7, BUN 20 H, Creatinine 1.19, Estim Creat Clear Calc 74.27, Est GFR (MDRD) Af Amer 81, Est GFR (MDRD) Non-Af 67, BUN/Creatinine Ratio 16.8, Glucose 172 H, Calcium 8.9, Total Bilirubin 0.50, AST 13 L, ALT 28, Alkaline Phosphatase 121 H, Troponin I < 0.015, Total Protein 6.9, Albumin 3.7, Globulin 3.2, Albumin/Globulin Ratio 1.2 06/08/20 20:05: Lactic Acid 1.8 06/08/20 21:45: Urine Color Yellow, Urine Clarity Clear, Urine pH 6.5, Ur Specific [place] 1.010, Urine Protein Negative, Urine Glucose (UA) Normal, Urine Ketones Negative, Urine Occult Blood Negative, Urine Nitrite Negative, Urine Bilirubin Negative, Urine Urobilinogen Normal, Ur Leukocyte Esterase Negative, Urine RBC 0-5 SEEN, Urine WBC 0 SEEN, Ur Squamous Epith Cells 0-5 SEEN, Urine Bacteria 0 SEEN, Urine Mucus 0 SEEN 06/09/20 05:50: WBC 9.9, RBC 3.94 L, Hgb 12.0 L, Hct 37.5 L, MCV 95.2 H, MCH 30.5, MCHC 32.0, RDW Std Deviation 45.1 H, RDW Coeff of Alysa 12.9, Plt Count 142 L, MPV 10.5, Immature Gran % (Auto) 0.400, Neut % (Auto) 69.2, Lymph % (Auto) 15.5 L, [place] % (Auto) 11.6 H, Eos % (Auto) 2.7, Baso % (Auto) 0.6, Absolute Neuts (auto) 6.9, Absolute Lymphs (auto) 1.54, Nucleated RBC % 0 06/09/20 05:50: Sodium 139, Potassium 3.8, Chloride 108 H, Carbon Dioxide 25.0, Anion Gap 6, BUN 16, Creatinine 1.06, Estim Creat Clear Calc 83.38, Est GFR (MDRD) Af Amer 92, Est GFR (MDRD) Non-Af 76, BUN/Creatinine Ratio 15.1, Glucose 188 H, Calcium 8.2 L Current Medications Acetaminophen (Acetaminophen 325 Mg Tablet) 650 mg PO Q4H PRN PRN PRN Reason: Pain 1-10/Fever Last Admin: 06/09/20 03:13 Dose: 650 mg Documented by: Sodium Chloride () 1,000 mls @ 60 mls/hr IV .[id number] [facility] Last Admin: 06/09/20 00:44 Dose: 60 mls/hr Documented by: Piperacillin Sod/Tazobactam (Sod 3.375 gm/ Sodium Chloride) 50 mls @ 12.5 mls/hr IV Q8 [facility] Last Admin: 06/09/20 06:34 Dose: 12.5 mls/hr Documented by: Morphine Sulfate (Morphine 2 Mg/Ml Syringe) 2 - 4 mg IV Q2H PRN PRN PRN Reason: Pain Score 4-10 Morphine Sulfate (Morphine 4 Mg/Ml Syringe) 2 - 4 mg IV Q2H PRN PRN PRN Reason: Pain Score 4-10 Ondansetron HCl (Ondansetron 4 Mg/2 Ml Vial) 4 mg IV Q6H PRN PRN PRN Reason: NAUSEA/VOMITING Sodium Chloride (0.9% Saline Lock 10 Ml Syringe) 10 - 40 ml IV UD PRN PRN Reason: SALINE FLUSH Assessment/Plan All Active Problems (Last Updated 06/08/20 @ 13:56 by Gay Andrew) Postoperative cellulitis of surgical wound (Acute) Recurrent ventral incisional hernia (Acute) Knee pain, right (Acute) History of incisional hernia repair (Acute ~10/2019) Ventral incisional hernia (Acute) Incontinence (Acute) Back pain (Acute) Limb weakness (Acute) Difficulty balancing (Acute) SOB (shortness of breath) (Acute) History of sinus surgery (Acute) Chronic maxillary sinusitis (Resolved) URI (upper respiratory infection) (Acute) History of carpal tunnel repair (Acute) History of hand surgery (Acute) History of lumbar fusion (Acute) History of appendectomy (Acute) 59-year-old male with cellulitis of the postsurgical wound 1. The patient had a white count which was mildly elevated as well as fevers. The patient has some cellulitis around his drain site but no cellulitis around the incision. He has CT scan which showed inflammation at the postsurgical site which could be postoperative versus phlegmon. The patient is not having any purulent drainage from his GWENDOLYN drain. He was admitted for IV antibiotics and is feeling improved today although he still has some redness. I will keep him today on IV antibiotics and regular diet and discharge home tomorrow if he is doing well. Chapo Recinos MD Pager: [facility] [place] [facility] [address] [place] [address] Office:
[2020-06-09] MEDS: Gabapentin 300 MG Capsule PO ×3 (11:56→21:29)
[2020-06-09] MEDS: hydroCHLOROthiazide 12.5mg 12.5 MG PO (12:44)
[2020-06-09] MEDS: Losartan Potassium 100 MG Tablet PO (12:44)
[2020-06-09 13:57] VITALS: BP 141/83; PULSE 88; RESP 16; TEMP 37.3; O2SAT 96
--- NOTE | 2020-06-09 14:36 | CASEMGMT ---
RN DARLEEN Assessment: Face to Face with pt for initial transition planning/care coordination assessment. RN CM introduced self and role at [facility], pt voices understanding and consents to assessment. Pt is A/O x4 and answers all questions appropriately at this time. Pt lying in bed in no distress.Care providers, pharmacy, and demographics verified/updated. Admitting Dx: postop cellulitis PCP: [facility] Specialists: Jorje and Diomedes from [facility], surgeon Preferred Pharmacy: [facility] Insurance: [employer] Prescription Benefit: yes, [employer] LW/HPOA: Pt reports he has a LW and DPOA. States his DPOA is his friend, Rob Beavers. LNOK: Brothers Keith and Roderick Thakur, friend Rob Beavers Living Arrangements: Pt lives with his friend Rob and Rob's mother in a two story house with 4 steps to enter with no rail. Pt states he is I in ADL's and denies concerns at home. Transportation: Pt drives self and denies concerns with transportation. DME/HHC/SNF: Pt states he does not use DME but he has many items such as cane, walker, w/c, tub seats due to family. Pt has not previously had HHC nor had a SNF stay. Pt states no concerns with going home at time of dc. Pt states no further concerns/needs. CM to follow for safe dc. Advised pt to ask CM if any further question/concerns/needs arise, voices understanding. Pt Goal: Home Plan: Home with support of friend.
--- NOTE | 2020-06-09 15:32 | CHAPLAIN ---
Type of Pastoral Visit _x__ Initial Visit ___ Follow-up Visit ___ On-call Visit ___ General Patient Visit ___ Spiritual Assessment ___ Family Conference ___ Bereavement ___ Rapid Response ___ Code Blue ___ Other (describe below) Pastoral Care Referral From _x__ Patient ___ Family ___ Nurse ___ Physician ___ Political Theory Professor ___ Farmer [employer] ___ Other (describe below) Sacrament/Intervention _x__ Active listening ___ Anointing ___ Oriental Orthodox ___ Bereavement ___ Communion _x__ Amanda exploration ___ _x__ Life review _x__ Prayer ___ Reconciliation ___ Sacrament of Sick _x__ Supportive presence ___ Wedding ___ Other (describe below) Pastoral Comments patient describes health history and current situation; pt has friend and family for main support; pt looks to his amanda for much support as well; pt very talkative even though he states he has a headache; RN came to room to administer meds during this visit; pt welcomes prayer and visits of support
[2020-06-09 19:50] VITALS: BP 119/72; PULSE 84; RESP 16; TEMP 36.8; O2SAT 95
[2020-06-09] MEDS: 0.9% Normal Saline 1,000 ML 20 ML IV (19:50)
[2020-06-09] MEDS: Montelukast 10 MG Tablet PO (21:29)
[2020-06-10 02:10] VITALS: BP 113/74; PULSE 74; RESP 16; TEMP 36.7; O2SAT 96
[2020-06-10] MEDS: Acetaminophen 325 MG Tablet 650 MG PO ×2 (02:10→06:08)
[2020-06-10] MEDS: Gabapentin 300 MG Capsule PO (05:15)
[2020-06-10 07:39] VITALS: BP 112/78; PULSE 75; RESP 18; TEMP 37; O2SAT 99
--- NOTE | 2020-06-10 08:15 | PN.SURG_ITS ---
Patient Problems: Active and Suspected Problems (Last Reviewed 05/10/20 @ 08:35 by Glenny Eagle) Postoperative cellulitis of surgical wound (Acute) Subjective: Patient reports improvement - Physical Exam Vitals/I&O's: Vital Signs Temp Pulse Resp BP Pulse Ox 98.6 F 75 18 112/78 99 06/10/20 07:39 06/10/20 07:39 06/10/20 07:39 06/10/20 07:39 06/10/20 07:39 Oxygen Delivery Method Room Air Weight: 256 lb 2.834 oz Body Mass Index (BMI) 34.7 Intake and Output for Last 24 Hours 06/08/20 06/09/20 06/10/20 23:59 23:59 23:59 Intake Total 1000 / 1000 1119.33 / 1119.33 50 / 50 Output Total 3000 / 4430 2635 / 2635 Balance 1000 / 1000 -1880.67 / -3310.67 -2585 / -2585 General: Alert, Oriented x3 Lungs: Normal air movement Cardiovascular: Regular rate, Regular Rhythm Abdomen: Soft, Non-Distended, Tender Microbiology Past 72 Hours 06/08/20 20:43 Nasal Secretion SARS-CoV-2 Antigen (Rapid) - Final Current Medications Acetaminophen (Acetaminophen 325 Mg Tablet) 650 mg PO Q4H PRN PRN PRN Reason: Pain 1-10/Fever Last Admin: 06/10/20 06:08 Dose: 650 mg Documented by: Fluticasone Propionate (Fluticasone 0.05% 1 [place] Nasal.Sry) 2 spray NASAL DAILY PRN PRN Reason: NASAL CONGESTION Gabapentin (Gabapentin 300 Mg Capsule) 300 mg PO TID [facility] Last Admin: 06/10/20 05:15 Dose: 300 mg Documented by: Hydrochlorothiazide (Hydrochlorothiazide 12.5mg) 12.5 mg PO DAILY [facility] Last Admin: 06/09/20 12:44 Dose: 12.5 mg Documented by: Sodium Chloride () 1,000 mls @ 15 mls/hr IV .Q48H [facility] Last Admin: 06/09/20 19:50 Dose: 20 mls/hr Documented by: Piperacillin Sod/Tazobactam (Sod 3.375 gm/ Sodium Chloride) 50 mls @ 12.5 mls/hr IV Q8 [facility] Last Admin: 06/10/20 05:15 Dose: 12.5 mls/hr Documented by: Loratadine (Loratadine 10 Mg Tablet) 10 mg PO DAILY [facility] Losartan Potassium (Losartan Potassium 100 Mg Tablet) 100 mg PO DAILY [facility] Last Admin: 06/09/20 12:44 Dose: 100 mg Documented by: Montelukast Sodium (Montelukast 10 Mg Tablet) 10 mg PO QHS [facility] Last Admin: 06/09/20 21:29 Dose: 10 mg Documented by: Morphine Sulfate (Morphine 2 Mg/Ml Syringe) 2 - 4 mg IV Q2H PRN PRN PRN Reason: Pain Score 4-10 Morphine Sulfate (Morphine 4 Mg/Ml Syringe) 2 - 4 mg IV Q2H PRN PRN PRN Reason: Pain Score 4-10 Ondansetron HCl (Ondansetron 4 Mg/2 Ml Vial) 4 mg IV Q6H PRN PRN PRN Reason: NAUSEA/VOMITING Sodium Chloride (0.9% Saline Lock 10 Ml Syringe) 10 - 40 ml IV UD PRN PRN Reason: SALINE FLUSH Medical Necessity - Tobacco Use Smoking Status: Former smoker Assessment/Plan All Active Problems (Last Updated 06/08/20 @ 13:56 by Gay Andrew) Postoperative cellulitis of surgical wound (Acute) Recurrent ventral incisional hernia (Acute) Knee pain, right (Acute) History of incisional hernia repair (Acute ~10/2019) Ventral incisional hernia (Acute) Incontinence (Acute) Back pain (Acute) Limb weakness (Acute) Difficulty balancing (Acute) SOB (shortness of breath) (Acute) History of sinus surgery (Acute) Chronic maxillary sinusitis (Resolved) URI (upper respiratory infection) (Acute) History of carpal tunnel repair (Acute) History of hand surgery (Acute) History of lumbar fusion (Acute) History of appendectomy (Acute) 59-year-old male with cellulitis after surgery 1. The patient had redness around his drain site which was expanding. It is likely a subcutaneous infection at the drain site. He did not have any redness or pain over the hernia site. There was no purulent drainage from his drain. After 24 hours on IV Zosyn the redness at the drain site has decreased to just around the incision. I removed his drain today as it was only drained 25 cc/day. I will send him home on his oral Bactrim that he was started on the day of admission. He will follow-up with me in 1 week. Chapo Recinos MD Pager: [facility] [address] [place] [address], [address] [place] [address] Office:
--- NOTE | 2020-06-10 08:16 | DCINST_ITS ---
Discharge Diet: Light diet - advance as tolerated Discharge Activity: May Drive, May Shower Lifting Restrictions: 20 lbs for 4 weeks Call your doctor if your incision/area has: Continuous Slow Oozing, Sudden Increased Bleeding, Increased Pain/ Swelling, Increased Redness, Foul Smelling Discharge, Swelling at the incision site Call your doctor if you observe: Fever of 101 or Higher Suture Line Care: Avoid Pulling/Pushing, Avoid Pinching/Bending Change Dressing in (Days):: 1 - change dressing daily over drain site Cleanse incision/area with: Soap & Water Allergies/Adverse Reactions: Allergies amoxicillin [From Augmentin] Allergy (Severe, Verified 06/08/20 19:32) Diarrhea clavulanic acid [From Augmentin] Allergy (Severe, Verified 06/08/20 19:32) Diarrhea chlorhexidine [From Marge-Hex] Allergy (Mild, Verified 06/08/20 19:32) Itching contact metal agent Allergy (Mild, Verified 06/08/20 19:32) rash Iodine and Iodide Containing Produc Allergy (Mild, Verified 06/08/20 19:32) Itching ampicillin Adverse Reaction (Severe, Verified 06/08/20 19:32) Diarrhea Medications to take at Discharge lysine 500 mg tablet 1,000 mg PO QDAY 05/29/17 cetirizine 10 mg tablet 10 mg PO DAILY 08/13/18 cholecalciferol (vitamin D3) 125 mcg (5,000 unit) capsule 5,000 unit PO DAILY 08/13/18 wnnjmmsxhwvv-iuzoalma-msdonm tablet 1 tab PO DAILY 08/13/18 mecobalamin (vitamin B12) 5,000 mcg disintegrating tablet 5,000 mcg PO DAILY 10/29/19 Fluticasone Propionate 2 spray INTRANASAL DAILY PRN 05/25/20 Nitroglycerin [Nitro-Bid] 1 inch TD TID 05/25/20 Gabapentin 300 mg PO TID 06/08/20 Losartan/Hydrochlorothiazide [Losartan-Hctz 100-12.5 mg Tab] 1 tablet PO QDAY 06/08/20 Montelukast Sodium [Singulair] 10 mg PO QHS 06/08/20 Sulfamethoxazole/Trimethoprim [Sulfamethoxazole-Tmp Ds Tablet] 1 tablet PO BID 06/08/20 Acetaminophen [Tylenol Tablet] 650 mg PO Q4H PRN PRN tablet 06/10/20 Primary Care Physician: Brown,Erlin R, DO [Primary Care Provider] - Test Results: Test results from this visit will be discussed in further detail at your follow- up appointment, if applicable. Please Follow Up With: Chapo Recinos MD When: Please call to schedule 1 week follow up appointment. [phone]
[2020-06-10] MEDS: Loratadine 10 MG Tablet PO (10:09)
[2020-06-10] MEDS: Losartan Potassium 100 MG Tablet PO (10:09)
[2020-06-10] MEDS: hydroCHLOROthiazide 12.5mg 12.5 MG PO (10:10)
== END 2020-06-10 11:23 | disposition home or self-care (01) | DRG 863 ==
LOC: ED 21:55 → MS3 06-09 03:12
PROVIDERS: Admitting Provider Surgery; Emergency Provider Emergency Medicine; PCP Family Medicine; Visit Provider Surgery
DX: T81.49XA Infection following a procedure, other surgical site, initial encounter (principal); L03.311 Cellulitis of abdominal wall; Y83.8 Other surgical procedures as the cause of abnormal reaction of the patient, or of later complication, without mention of misadventure at the time of the procedure; Z20.822 Contact with and (suspected) exposure to COVID-19; Y92.9 Unspecified place or not applicable; J45.909 Unspecified asthma, uncomplicated; Z79.899 Other long term (current) drug therapy; Z98.1 Arthrodesis status; Z87.891 Personal history of nicotine dependence
CPT/HCPCS: 36415; 71045; 74176; 80048; 80053; 81001; 83605; 84484; 85025; 85610; 85730; 87040; 87086; 87088; 87426; 93005; 99284; J7030; A4216; J0744; J2405

== ENCOUNTER → 2020-12-01 07:19 | Outpatient (CLI) | payer OTHER, SELFPAY ==
--- NOTE | 2020-12-01 07:27 | CT_ITS ---
INDICATION: abdominal pain -- no contrast hx of hernia repair EXAMINATION: CT ABDOMEN WITHOUT CONTRAST - CT Abdomen W/O Contrast Injection TECHNIQUE: Multiple axial images were obtained of the abdomen without oral or IV contrast. A radiation dose optimization technique was used for this scan. IV Contrast dosage and agent: None. Oral contrast: None. COMPARISON: 06/08/2020. FINDINGS: LOWER CHEST: Lung bases are clear. No cardiomegaly or pericardial effusion. LIVER: The liver demonstrates a heterogeneous evidence of low-attenuation but no evidence of focal mass is seen. No evidence of intrahepatic biliary dilatation is visualized. GALLBLADDER AND BILIARY TREE: No calcified gallstones. No gallbladder distension or wall edema. No intra- or extrahepatic biliary ductal dilation. PANCREAS: No focal cystic or solid mass. SPLEEN: Normal size without focal cystic or solid mass. ADRENAL GLANDS: No nodules. KIDNEYS AND URETERS: Normal renal size and position. 0.3 cm calcification visualized in the midpole of the right kidney, nonobstructive. No evidence of hydronephrosis is visualized bilaterally. No evidence of hydroureter is seen. PERITONEUM: No ascites or free air. No other fluid collection. BOWEL: Subtle type I hiatus hernia versus. Small bowel loops are unremarkable. Abundance of stool is visualized in the large bowel, scattered diverticular disease but no evidence of acute diverticulitis is seen. No stomach or bowel distension. No focal inflammatory change. LYMPH NODES: No enlarged mesenteric or retroperitoneal lymph nodes. VESSELS: Aorta is non-dilated. ABDOMINAL WALL: Anterior abdominal wall hernia defect visualized on axial series 2 image 76 and sagittal series 602 image 92 measuring 2.8 x 2.1 cm, herniation of omental fat seen. A second the subcortical superior defect is best appreciated on sagittal series 602 image 97, mild stranding of the adjacent anterior abdominal wall is seen. There has been resolution of the previously visualized the inflammatory changes, no evidence of focal collection is seen. BONES: Degenerative bone changes visualized, anterior and bipedicular posterior internal fixation of the L3, L4, L5 and S1 vertebral bodies is visualized, intervertebral disc spaces visualized at L3-L4, L4-L5 and L5-S1. CT/Abdomen without IV Contrast IMPRESSION: No evidence of acute abdominal pathology is seen. Resolution of the previously visualized inflammatory changes in the anterior abdominal wall, no evidence of collections is seen. Anterior abdominal wall hernia defects seen that were not appreciated on the prior study. Electronically Signed: Andrew Berman MD at 8:30 EDT Tel , Service support ,
== END ==
PROVIDERS: PCP Family Medicine; Referring Provider Surgery; Visit Provider Surgery
DX: R10.9 Unspecified abdominal pain (principal)
CPT/HCPCS: 74150

== ENCOUNTER 2020-12-22 16:14 | Observation (INO) | payer OTHER, SELFPAY ==
[2020-12-22] VITALS (17 sets, daily range): BP systolic 115–146; BP diastolic 72–97; PULSE 59–85; RESP 16–22; TEMP 35.9–36.7; O2SAT 92–100; BMI 34.8
--- NOTE | 2020-12-22 09:32 | PCM.HP.BLA ---
History and Physical Date of Admission: 12/22/20 Intake Intake Visit Reasons: DISCUSS CT RESULTS 12/01 Chief Complaint: Discuss CT results Pail Bailer Required: No Is patient in pain?: No Allergies amoxicillin [From Augmentin] Allergy (Severe, Verified 12/05/20 14:04) Diarrhea clavulanic acid [From Augmentin] Allergy (Severe, Verified 12/05/20 14:04) Diarrhea chlorhexidine [From Marge-Hex] Allergy (Mild, Verified 12/05/20 14:04) Itching contact metal agent Allergy (Mild, Verified 12/05/20 14:04) rash Iodine and Iodide Containing Produc Allergy (Mild, Verified 12/05/20 14:04) Itching ampicillin Adverse Reaction (Severe, Verified 12/05/20 14:04) Diarrhea Medications lysine 500 mg tablet 1,000 mg PO QDAY 05/29/17 [History Confirmed 12/05/20] cetirizine 10 mg tablet 10 mg PO DAILY 08/13/18 [History Confirmed 12/05/20] cholecalciferol (vitamin D3) 125 mcg (5,000 unit) capsule 5,000 unit PO DAILY 08/13/18 [History Confirmed 12/05/20] jjmjrcsljgai-kuvfhbqb-wmeerp tablet 1 tablet PO DAILY 08/13/18 [History Confirmed 12/05/20] mecobalamin (vitamin B12) 5,000 mcg disintegrating tablet 5,000 mcg PO DAILY 10/29/19 [History Confirmed 12/05/20] fluticasone propionate 2 spray INTRANASAL DAILY PRN 05/25/20 [History Confirmed 12/05/20] nitroglycerin 1 inch TD TID 05/25/20 [History Confirmed 12/05/20] gabapentin 300 mg PO TID 06/08/20 [History Confirmed 12/05/20] montelukast 10 mg PO QHS 06/08/20 [History Confirmed 12/05/20] acetaminophen 650 mg PO Q4H PRN PRN tablet 06/10/20 [Rx Confirmed 12/05/20] losartan 100 mg-hydrochlorothiazide 12.5 mg tablet 1 tab PO QDAY #90 tab 07/21/20 [Rx Confirmed 12/05/20] PFSH Medical History Abdominal pain Asthma Back pain Difficulty balancing History of pneumonia Incontinence Limb weakness Seasonal allergies SOB (shortness of breath) Surgical History History of appendectomy History of carpal tunnel repair History of hand surgery History of incisional hernia repair (~10/2019) History of lumbar fusion History of sinus surgery Family History Father Asthma Bone cancer Myocardial infarction Mother Myocardial infarction Hypertension Grandmother Myocardial infarction Grandmother Myocardial infarction Grandfather Myocardial infarction CVA (cerebral vascular accident) Brother Myocardial infarction Hypertension Grandfather Parkinson disease Other Diabetes Social History Smoking Status: Former smoker alcohol intake: current alcohol intake frequency: holidays/special occasions only substance use type: does not use what type of physical activity do you participate in: none HPI HPI HPI: VIANNEY GONZALEZ, is a 59 M who presents to the office today for abdominal pain. Patient is reporting abdominal pain in the ventral hernia area especially on the right side. ROS General General: No weight change or fatigue HEENT HEENT: No difficulty swallowing Endo Endocrine: No thyroid disease Musc Musculoskeletal: No back problems or arthritis Cardio Cardiovascular: No pacemaker, heart disease, atrial fibrillation, high blood pressure, heart attack, heart stent, palpitations or chest pain Psych Psychiatric: No depression or anxiety Resp Respiratory: No shortness of breath, No cough, No COPD, No asthma and No emphysema Gastro Gastrointestinal: Yes abdominal pain, No nausea or vomiting, No diarrhea, No constipation, No blood in stool, No acid reflux, No hemorrhoids, No ulcers, No gallbladder problem and No black,tarry stools Additional Details: Bulging in the ventral area Andrea Hematologic: No blood thinners Exam Const General: cooperative Orientation: alert and oriented x3 HENMT Head: normal to inspection Neck Neck: normal visual inspection and full ROM Chest Chest palpation & inspection: normal inspection of the chest Resp Effort & Inspection: normal respiratory effort Auscultation: clear to auscultation bilaterally Cardio Rate: regular rate Rhythm: regular rhythm GI Inspection: non-distended Palpation: soft and tender other (Tender at the ventral hernia site) Skin General: no rashes or lesions noted Neuro General: patient alert and patient oriented x3 Extrem General: full ROM Psych Appearance: grossly normal Mental Status: mental status grossly normal Assessment and Plan Assessment and Plan (1) Abdominal pain: Status: Acute Qualifiers: Abdominal location: periumbilical Qualified Code(s): R10.33 - Periumbilical pain (2) Recurrent ventral hernia: Status: Acute Plan - Dr. Chapo Recinos MD: The patient is reporting pain at the ventral hernia site. Patient has CT scan which shows that the mesh is still intact but the underlying fascia has reherniated allowing fat to herniate through this area. At this time I believe the only treatment available is laparoscopic repair with intraperitoneal mesh. I discussed robotic assisted laparoscopic ventral hernia repair with IPOM. I discussed the risks including wound to bleeding, infection, injury to underlying bowel. Patient understands the risks and is when to proceed. Chapo Recinos MD Pager: [facility] [address] [place] [address], [address] [place] [address] Office: I have re-examined the patient. There are no clinical changes since date of exam.
[2020-12-22] MEDS: Lactated Ringers 1,000 ML 100 ML IV ×2 (10:02→13:01)
[2020-12-22 10:20] LABS: Anion Gap 4 (5-15); BUN 19 mg/dL (7-18); BUN/Creat Ratio 18.6 RATIO (10-20); Calcium,Total 8.6 mg/dL (8.5-10.1); Chloride 109 mmol/L (98-107); Creatinine, Serum 1.02 mg/dL (0.70-1.30); EST Glomerular Filtration Rate 79 mL/min (>60); Est Glom Filt Rate - Afr Amer 96 mL/min (>60); Estimated Creatinine Clearance 85.59 ml/min; Glucose 139 mg/dL (74-106); Potassium 4.1 mmol/L (3.5-5.1); Sodium Level 141 mmol/L (136-145)
[2020-12-22] MEDS: Bupivacaine Mpf 0.5% 30 ML VIAL (12:54)
--- NOTE | 2020-12-22 13:06 | PCM.OPRPT ---
Problems Associated Problem List Diagnoses (1) Recurrent ventral incisional hernia: Report of Operation Date of Procedure: 12/22/20 Pre-Operative Diagnosis: Recurrent ventral hernia Post-Operative Diagnosis: Same Surgery/Procedure Performed:: Robotic assisted laparoscopic recurrent ventral hernia repair with mesh Description of Procedure: Patient was brought back to the operating room and general anesthesia was induced. The abdomen was prepped and draped in usual sterile fashion. An incision was made in the left upper quadrant and Visiport technique was used to enter the abdomen with a 12 mm port and the abdomen was insufflated to 15 mmHg. Next under direct visualization 3 lateral robotic 8mm ports were placed. The robot was then docked. The patient had multiple defects in the midline which were closed in sequence with running #1 stratafix suture. After these defects were closed the hernia was measured and a [address] mesh with echo positioning device was selected. The mesh was placed into the abdomen and a Vernon Wilson needle was used to elevate the balloon and it was inflated. Next the mesh was sutured to the anterior abdominal wall circumferentially using 2 running 2-0 VLock sutures. Interrupted 2-0 Vicryl sutures were also used to tack the middle the mesh to the anterior abdominal wall. Next the balloon was removed through the 12 mm port and it was completely intact. The abdomen was inspected and there was good mesh coverage of the hernia defect and it appeared to be circumferentially tacked up. The air was allowed to desufflate from the abdomen and the fascia of the left upper quadrant incision was closed with an interrupted 0 Vicryl suture. The skin incisions were injected with local anesthetic and closed with interrupted 4-0 Monocryl suture. Steri-Strips and bandages were applied. Patient was taken to PACU in stable condition. Grafts/Implants Used: [address] mesh Admit VTE Documentation VTE Mechan Device Prophylaxis: SCD's
--- NOTE | 2020-12-22 13:10 | EX.PCM.DISCH ---
Discharge Instructions Procedure Hernia Diet Discharge Diet: Light diet - advance as tolerated Activity Discharge Activity: May Not Drive (for 2-3 days or while taking narcotic pain meds.) and May Shower (with the bandage in place 1-2 days after surgery.) Lifting Restrictions: 20 pounds for 6 weeks. Additional Activity Instructions:: Climbing stairs is fine, walking is encouraged. Sitting in bed may be uncomfortable. Sitting up using your lateral muscles (sitting up sideways) is usually more comfortable. Do not drive, work heavy equipment of sign legal documents for 24 hours. Pain medications may cause nausea, you should typically eat light foods as you take your pain medications. Pain medications may also cause constipation. If you have difficulty with this, discuss with your doctor. Dressing / Incision Call your doctor if your incision/area has: Continuous Slow Oozing, Sudden Increased Bleeding, Increased Pain/ Swelling, Increased Redness and Foul Smelling Discharge Call your doctor if you observe: Fever of 101 or Higher Suture Line Care: Avoid Pulling/Pushing and Avoid Pinching/Bending Remove Dressing in: 2 days Cleanse incision/area with: Soap & Water Follow Up Care Please Follow Up With: Chapo Recinos MD When: Please call to schedule 2 week follow up appointment. [phone] Test Results: Test results from this visit will be discussed in further detail at your follow-up appointment, if applicable. Discharge Plan Admission Attending Provider: Chapo Recinos Primary Care Provider: Erlin Bella Discharge Orders/Prescriptions Prescriptions: New oxycodone-acetaminophen [Percocet] 5-325 mg tablet 1 tab PO Q4H PRN (Reason: pain) 5 Days Qty: 30 RF: 0 No Action lysine [L-Lysine] 500 mg tablet 1,000 mg PO QDAY RF: 0 xvulkegvlxyu-xvwnytyi-pznjdj tablet 1 tablet PO DAILY RF: 0 cholecalciferol (vitamin D3) 5,000 unit capsule 5,000 unit PO DAILY RF: 0 cetirizine [All Day Allergy (cetirizine)] 10 mg tablet 10 mg PO DAILY RF: 0 mecobalamin (vitamin B12) 5,000 mcg tablet,disintegrating 5,000 mcg PO DAILY RF: 0 gabapentin 300 mg capsule 300 mg PO TID Qty: 270 RF: 1 montelukast 10 mg tablet 10 mg PO QHS Qty: 90 RF: 1 fluticasone propionate 16 GM spray,suspension 2 spray INTRANASAL DAILY PRN (Reason: Nasal Congestion) RF: 0 acetaminophen 325 MG tablet 650 mg PO Q4H PRN PRN (Reason: Pain 1-10/Fever) RF: 0 ascorbic acid (vitamin C) [Vitamin C] 250 mg Tablet,Chewable 250 mg PO DAILY RF: 0 losartan-hydrochlorothiazide 100-12.5 mg tablet 1 tab PO QDAY RF: 0 albuterol sulfate [Ventolin HFA] 90 mcg/actuation HFA aerosol inhaler 1 inh inhalation Q8H Qty: 6.7 RF: 1 Referrals / Follow Up: Erlin Bella DO [Primary Care Provider] - Disposition Disposition (needs filled in before D/C Order can be placed): Home, Self Care
[2020-12-22] MEDS: Ketorolac 30 MG/ML Syringe IV (15:45)
--- NOTE | 2020-12-22 16:13 | PCM.PN.BLA ---
Progress Note pt complaining of a lot of pain, will admit for IV pain control. Chapo Recinos MD
[2020-12-22] MEDS: Gabapentin 300 MG Capsule PO ×2 (17:37→22:03)
[2020-12-22] MEDS: 0.9% Saline Lock 10 ML Syringe IV (18:36)
[2020-12-22] MEDS: HYDROmorphone 1 MG/ML Syringe IV (18:36)
[2020-12-22] MEDS: Albuterol 2.5 MG/3 ML VIAL.NEB. INHALATION (18:58)
[2020-12-22] MEDS: oxyCODONE 5 MG Tablet PO (20:48)
[2020-12-22] MEDS: Ketorolac 30 MG/ML Syringe 15 MG IV (22:03)
[2020-12-22] MEDS: Montelukast 10 MG Tablet PO (22:04)
--- NOTE | 2020-12-23 00:14 | PCS.PANDOC ---
PANDEMIC DOCUMENTATION INITIATED: Date: 10/22/20 Time: 1899
--- NOTE | 2020-12-23 00:15 | PCS.PANDOC ---
PANDEMIC DOCUMENTATION INITIATED: Date: 12/22/20 Time: 1899
[2020-12-23 03:02] VITALS: BP 105/61; PULSE 74; RESP 18; TEMP 36.7; O2SAT 92
[2020-12-23] MEDS: oxyCODONE 5 MG Tablet PO (03:16)
[2020-12-23] MEDS: Ondansetron 4 MG/2 ML Vial IV (04:06)
[2020-12-23] MEDS: Ketorolac 30 MG/ML Syringe 15 MG IV ×2 (06:44→13:40)
[2020-12-23] MEDS: Gabapentin 300 MG Capsule PO ×2 (06:45→13:40)
[2020-12-23 08:51] VITALS: BP 114/65; PULSE 80; RESP 18; TEMP 36.8; O2SAT 92
[2020-12-23] MEDS: Loratadine 10 MG Tablet PO (08:54)
[2020-12-23] MEDS: Cholecalciferol (VIT D3) 25 MCG TABLET (1,000 UNITS) 125 MCG PO (08:54)
[2020-12-23] MEDS: hydroCHLOROthiazide 12.5mg 12.5 MG PO (08:54)
[2020-12-23] MEDS: Losartan Potassium 100 MG Tablet PO (08:54)
[2020-12-23] MEDS: Ascorbic Acid 500 MG Tablet 250 MG PO (08:55)
[2020-12-23] MEDS: Acetaminophen 325 MG Tablet 650 MG PO (08:59)
[2020-12-23 14:56] VITALS: BP 132/80; PULSE 70; RESP 18; TEMP 36.7; O2SAT 95
== END 2020-12-23 14:55 | disposition home or self-care (01) ==
LOC: SDC 16:58 → MS2 16:58
PROVIDERS: Anesthesiology; Admitting Provider Surgery; PCP Family Medicine; Visit Provider Surgery
PROC: (CPT 49656; principal; 2020-12-22 10:35)
DX: K43.2 Incisional hernia without obstruction or gangrene (principal); J45.909 Unspecified asthma, uncomplicated; Z79.899 Other long term (current) drug therapy; Z87.891 Personal history of nicotine dependence
CPT/HCPCS: 00790; 49656; S2900; 80048; 94640; 96361; 96374; 96375; 96376; 99218; 99251; J7120; A4216; G0378; G0463; J2405

== ENCOUNTER → 2021-12-13 | Outpatient (CLI) | payer OTHER, SELFPAY ==
[2021-12-13 12:26] LABS: ALB/GLOB Ratio 1.3 RATIO (0.9-2.4); AST(SGOT) 23 U/L (15-37); Alanine Aminotransfer ALT/SGPT 42 U/L (16-61); Alkaline Phosphatase 130 U/L (45-117); Anion Gap 6 (5-15); BUN 22 mg/dL (7-18); BUN/Creat Ratio 21.8 RATIO (10-20); Calcium,Total 8.8 mg/dL (8.5-10.1); Chloride 106 mmol/L (98-107); Creatinine, Serum 1.01 mg/dL (0.70-1.30); EST Glomerular Filtration Rate 80 mL/min (>60); Est Glom Filt Rate - Afr Amer 97 mL/min (>60); Glucose 143 mg/dL (74-106); Sodium Level 139 mmol/L (136-145)
== END | disposition home or self-care (01) ==
LOC: BIMLAB 09:10
PROVIDERS: PCP Family Medicine; Referring Provider Family Medicine; Visit Provider Family Medicine
DX: I10 Essential (primary) hypertension (principal)
CPT/HCPCS: 36415; 80053

== ENCOUNTER → 2022-03-08 | Outpatient (CLI) | payer OTHER, SELFPAY ==
[2022-03-08 12:24] LABS: Anion Gap 4 (5-15); BUN 15 mg/dL (7-18); Calcium,Total 9.4 mg/dL (8.5-10.1); Chloride 104 mmol/L (98-107); EST Glomerular Filtration Rate 81 mL/min (>60); Est Glom Filt Rate - Afr Amer 98 mL/min (>60); Glucose 121 mg/dL (74-106); Potassium 4.1 mmol/L (3.5-5.1); Sodium Level 140 mmol/L (136-145)
[2022-03-08 12:32] LABS: Hemoglobin A1c 6.3 % (3.8-5.6)
== END | disposition home or self-care (01) ==
LOC: BIMLAB 10:44
PROVIDERS: PCP Family Medicine; Referring Provider Family Medicine; Visit Provider Family Medicine
DX: I10 Essential (primary) hypertension (principal); R73.9 Hyperglycemia, unspecified
CPT/HCPCS: 36415; 80048; 83036

== ENCOUNTER → 2022-03-23 | Outpatient (CLI) | payer OTHER, SELFPAY ==
--- NOTE | 2022-03-23 12:48 | CR.HP_ITS ---
CR - History & Physical - General Arrival date:: 03/23/22 Arrival time:: 12:49 Date of Referral:: 03/14/22 Date of CR Evaluation:: 03/23/22 Referring Physician: Dr. Silvestre Ross Primary Diagnosis: IN-ST elevated Myocardial infarction, PCI w/coronary stent - History of Present Cardiac Event Onset Date: Enter Onset Date of cardiac illnesses in Comment field below Acute Myocardial Infarction within 12 months:: Yes - ST - elevation IN PTCA or coronary stenting:: Yes - PCI w/coronary stenting Interventions with present event:: Treated in ER @ [place] transfer to [facility] lab[facility] house Were there any complications?: Heart cath right radial angioplasty and stenting of the LAD - Sleep Disorder Evaluation Hx of Sleep Apnea: No Do you snore loudly (louder than talking or can be heard through closed doors)?: No Do you often feel tired/ fatigued/ sleepy during daytime?: No Has anyone observed you stop breathing during sleep?: No History of Hypertension (for STOP score): Yes STOP Results: Negative - Medications Home Medications: Ambulatory Orders Medication Instructions Recorded lysine 500 mg tablet (L-Lysine) 1,000 mg PO QDAY supplement 05/29/17 cetirizine 10 mg tablet (All Day 10 mg PO DAILY stomach 08/13/18 Allergy (cetirizine)) cholecalciferol (vitamin D3) 125 5,000 unit PO DAILY supplement 08/13/18 mcg (5,000 unit) capsule qfxuuaarrvtp-stozvsuo-kvukau tablet 1 tablet PO DAILY supplement 08/13/18 mecobalamin (vitamin B12) 5,000 5,000 mcg PO DAILY supplement 10/29/19 mcg disintegrating tablet fluticasone propionate 50 2 spray intranasal DAILY PRN Nasal 05/25/20 mcg/actuation nasal Congestion spray,suspension acetaminophen 325 mg tablet 650 mg PO Q4H PRN PRN Pain 06/10/20 1-10/Fever ascorbic acid (vitamin C) 250 mg 250 mg PO DAILY 12/19/20 chewable tablet (Vitamin C) albuterol sulfate 90 mcg/actuation 2 inh inhalation Q6H PRN shortness 01/10/21 aerosol inhaler (Ventolin HFA) of breath or wheezing #8.5 grams gabapentin 300 mg capsule 300 mg PO TID nerve pain #270 caps 12/13/21 losartan 100 1 tab PO QDAY EDEMA #90 tabs 12/13/21 mg-hydrochlorothiazide 12.5 mg tablet montelukast 10 mg tablet 10 mg PO QHS breathing #90 tabs 12/13/21 aspirin 81 mg tablet,delayed 81 mg PO DAILY #90 tabs 01/15/22 release (Adult Low Dose Aspirin) atorvastatin 40 mg tablet 40 mg PO DAILY #90 tabs 01/15/22 prasugrel 10 mg tablet 10 mg PO DAILY #90 tabs 01/15/22 triamcinolone acetonide 0.1 % 1 applic topical BID PRN rash, 01/19/22 topical cream itching #80 grams metoprolol succinate 25 mg 12.5 mg PO DAILY 03/08/22 tablet,extended release 24 hr dapagliflozin 10 mg tablet 10 mg PO QAM #90 tabs 03/13/22 [facility] - Allergies Allergies/Adverse Reactions: Allergies amoxicillin [From Augmentin] Allergy (Severe, Verified 03/13/22 10:43) Diarrhea clavulanic acid [From Augmentin] Allergy (Severe, Verified 03/13/22 10:43) Diarrhea chlorhexidine [From Marge-Hex] Allergy (Mild, Verified 03/13/22 10:43) Itching contact metal agent Allergy (Mild, Verified 03/13/22 10:43) rash Iodine and Iodide Containing Produc Allergy (Mild, Verified 03/13/22 10:43) Itching soap Allergy (Verified 03/13/22 10:43) Rash ampicillin Adverse Reaction (Severe, Verified 03/13/22 10:43) Diarrhea Advanced Directives - Advanced Directives Power of Gear Hobber Set Up Operator: Yes - Rob Beavers ([place]) Living Will: Yes Advance Directives Information Provided: No Advance Directives on File: No - Doesn't know for sure, will provide copies to scan DNR Order?:: No - MOLST See MOLST form: No Past Medical History - Covid-19 Screening Fever: No Unexplained muscle aches: No - Neuropathy, left rotator cuff tear Current respiratory symptoms: No Upper respiratory infections symptoms: No - Asthma Gastro-intestinal symptoms: No Elr-Patr-Lqoxjh symptoms: No Has tested positive for COVID-19 in last 30 days: No Date of testin03/23/22 - Vaccinations and both boosters Had contact w/person w/symptoms or Covid-19 (+) last 14 days: No Has High Risk Exposures ID'd by Health dept/Inf Control team: No 65 years or older:: No Lives in Assisted Living facility:: No Has a chronic lung disease or moderate to severe asthma:: Yes Has a serious heart condition:: No Immunocompromised:: No Severely obese (Body Mass Index of 40 or higher):: No Diabetic:: Yes Has chronic kidney disease undergoing dialysis:: No Has liver disease:: No - Past Medical Illness Medical History: Past Medical History (Last Updated 03/14/22 @ 08:55 by Barby Newton) Abdominal pain R10.9 Alcohol use Z72.89 RARELY Arthritis M19.90 Asthma J45.909 PRN INHALER, Montelukast Back pain M54.9 Borderline type 2 diabetes mellitus R73.03 Cardiology follow-up encounter Z09 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 Sánchez @ [facility] History of stress test Z92.89 2018 History of ulceration Z87.898 IN THE PAST Incontinence R32 Limb weakness R29.898 Lower extremity edema R60.0 LOWER LEGS/TAKES LOSARTAN/HCTZ SINCE BACK SURGERY Neuropathy G62.9 Open wound T14.8XXA RIGHT KNEE CAP/HAD LESION FROZEN OFF/COVERED WITH BANDAID Seasonal allergies J30.2 SOB (shortness of breath) R06.02 Wears glasses Z97.3 - Past Surgical History Surgical History: Past Surgical History (Last Updated 03/14/22 @ 08:57 by Barby Newton) History of appendectomy Z90.49 History of carpal tunnel repair Z98.890 Rt x2 History of hand surgery Z98.890 11 since 2008 ( Rt hand) History of incisional hernia repair Onset Date: ~10/2019 Z98.890, Z87.19 06/01/2020; 12/22/2020 History of lumbar fusion Z98.1 2005, & 05/02/18 History of placement of stent in LAD coronary artery Z95.5 Synergy 4X28 stent to 100% occluded proximal LAD per Dr. Sánchez @ [facility] History of sinus surgery Z98.890 02/14/18 History of ventral hernia repair Onset Date: ~12/2020 Z98.890, Z87.19 Surgical History: - - ventral hernia repair - Family History Summary Family History: Family History (Last Reviewed 03/13/22 @ 10:43 by Mckayla Mireles) Father Asthma Bone cancer Myocardial infarction Mother Myocardial infarction Hypertension Grandmother Myocardial infarction Grandmother Myocardial infarction Grandfather Myocardial infarction CVA (cerebral vascular accident) Brother Myocardial infarction Hypertension Grandfather Parkinson disease Other Diabetes Social History - Smoking History Smoking Status: Former smoker Hx Tobacco Use: No Hx Smoking Exposure: No - Alcohol Use Alcohol Usage: Yes - occasionally, maybe 1-2 per year - Substance Abuse Hx Substance Use: No - Occupation Occupation (List type of work in comments):: Retired - Hobbies, Recreation, Social Activities Hobbies: Farm, Other - gardening, lawn care, stained glassing Recreational Activities: I am able to engage in most, but not all activities Social Environment - Status Marital Status: Single - Current Living Arrangements Living Environment:: Spouse - Significant other - Children Do any of your children live nearby?: No - Safety Do you feel safe in your surroundings?: Yes - Assistance Do you need any assistance at home?: no Review of Systems - Review of Systems Hints: Right click = Denies ([place]). Left click = Reports ([place]) Review of Present Symptoms: Reports: Shortness of Breath with Exertion - only if asthma is acting up, Appetite - Normal, Appetite - Special Diet - Diabetic,low fat, high protein, low sodium (does home colby from garden), Sleep - Normal. Denies: Shortness of Breath at Rest, Angina, Dizziness/Lightheadedness, Fatigue, Heart Arrhythmia/Irregularities, Sexual Changes - Pain Is Patient Pain Free?: Yes Pain Location: none, back - chronic lower back history, spinal fusion done from L2 to S-1 Risk Factor Assessment - Vital Signs Temperature: 95 F Respiratory Rate: 14 Pulse Ox: 95 - Pulse Pulse Rate: 84 Pulse Rhythm: Regular - Hypertension Blood Pressure Sitting - Right Arm: 120/74 Blood Pressure Sitting - Left Arm: 120/76 - Stress Stress: Home/Family - have 91 yr old w/dementia living at the home - Blood Cholesterol/Lipids Total Cholesterol (mg/dL) Goal = less than 200 mg/dL: 0 - not available - Diabetes Diabetic History: Type II - Borderline Nutrition Referral for Diabetes: Yes - Obesity Height: 6 ft Weight:: 243 lb Weight in Pounds: 243.0 lbs Weight Source: Estimated by Patient Body Mass Index (BMI): 32.9 Nutritional Referral for Obesity: Yes - Physical Inactivity Physical Inactivity: None - Risk Stratification Risk Guidelines: Lowest Risk: Risk Factor for Smoking, Risk Factor for Dyslipidemia, Risk Factor for Diabetes - A1c 6.3%, Glucose 121, Risk Factor for Hypertension - 120/76, Risk Factor for Sedentary Lifestyle, Risk Factor for Depression - Family History Family History: Family History (Last Reviewed 03/13/22 @ 10:43 by Mckayla Mireles) Father Asthma Bone cancer Myocardial infarction Mother Myocardial infarction Hypertension Grandmother Myocardial infarction Grandmother Myocardial infarction Grandfather Myocardial infarction CVA (cerebral vascular accident) Brother Myocardial infarction Hypertension Grandfather Parkinson disease Other Diabetes Motivation - Motivation to Participate On a scale of 1 to 10, how prepared are you to commit to attending program?: 10 What do you see as barriers to successfully being able to complete the program?: none What do you see as the benefits of succesfully completing the program? In other words, what do you hope to get out of participating in the program?: Increase energy, get healthy, feel better Are there issues you are dealing with that will interfere with completing the program?: possibly back issue/neuropathy in both feet mid-calf Do you have a spouse or signficant other, family or friends who will help support you to complete the program?: yes
--- NOTE | 2022-03-23 12:49 | CR.ITP_ITS ---
Diagnosis - General Information Admitting Diagnosis: STEMI, PCI w/coronary stenting Secondary Diagnosis: Borderline Type II DM, asthma, Personal Learning Style:: Audio/Visual, Written Barriers to Learning: Vision Impairment Stage of change r/t lifestyle modifications:: Action Gave educational material for:: Treating Heart Disease, Emotions & Heart Disease, Stress Management & Relaxation, Sleep Disorders & Heart Disease, How The Heart Works, What it means to have Heart Disease, How Coronary Artery Disease is Diagnosed, Heart Procedures, What Heart Medications Do, Risk Factors & Modifications, Living an Active Life, Nutrition - Education/Goals Individual Counseling: Initial Assessment: Abnormal Cholesterol Levels, High Blood Pressure, Overweight/Obesity, Diabetes Cardiac Rehabilitation Goals: 1. Maintain the individual as the primary focus of care. 2. To improve the patient's quality of life. 3. Identification of cardi ac risk factors and provide cardiac risk factor management. 4. Enhance the psychosocial status of the patient. 5. Reconditioning enough to allow the patient to resume customary activities. 6. Control symptoms of cardiac disease Personal Goals: Initial Assessment: Improve energy level, Improve diet and eating habits (eat healthier), Control risk factors (learn risk factor modification) Scale for measuring improvement of personal goals: Enter appropriate number in Comments. 2 = Unchanged. 3 = Slightly Better. 4 = Moderate Improvement. 5 = Met my Goal - Diagnosis & Disease Process Outcomes/Goals: Pt IDs own risk factors & lifestyle modifications by Session 10, Verbalizes symptoms of angina & response by session 3., Pt independently manages Plan/Interventions: Assist Pt to ID & engage in lifestyle modification to reduce CVD risk, Instruct on individual risk factors, Review symptoms of angina & emergency actions, Review secondary diagnosis & identify educational needs. - Safety Referral to Physical Therapy: No Referral to [facility] Case Management: No Fall Risk Assessed:: Yes Assistive Devices:: None Exercise - Initial Assessment - Visit Date of Eval: 03/23/22 Session #:: 0 - Pre-cardiac rehab evaluation Mets: Pre-: >7 METS for 30 minutes by discharge - Physician Prescribed Exercise Modalities: Treadmill, Airdyne, NuStep Frequency: 3x/week for 12 weeks [36 sessions] Intensity: 60-80% of age predicted maximum heart rate reserve Duration: 30 - 45 minutes Target Heart Rate:: 104-120 Resting Blood Pressure: 126/72 - LVEF 45% EKG Type: Normal Sinus Rhythm - Outcomes & Goals Goals:: Verbalizes understanding of THR, RPE & goal METS by session 6, Documents in home exercise log/reports 30 min aerobic 5 day/wk by DC, Demonstrates accurate pulse taking by DC - Intervention & Plan Exercise Program Goals: Instruct on personal THR & RPE, Instruct on MET level & personal MET goal, Show patient to take own pulse /validate performance until accurate, Instruct on home exercise - Physical Activity Home Exercise Physical Activity - Home Exercise: Safe Exercise, Warm-up, Self-monitoring, Cool-Down, Home Exercise > 30 min Daily, Sitting Time <3 hours/daily - Outcomes & Goals Outcomes/Goals: Demonstrates correct Warm-up/exercise Cool-Down (S3) if = 2.5 METs, Verbalizes symptoms of exercise intolerance by Session 3 (S3), Demonstrate safe equipment use (S3) & follows exercise prescrition (6) - Intervention & Plan Plan/Intervention: Instruct warm-up & cool-down if exercising at > 2 METs, Instruct on symptoms of exercise intolerance & actions to take, Instruct & monitor on saf, Assess intial functional capacity & safety risk Nutrition - Initial Assessment - Program Goals Nutrition Program Goals: LDL <100 optimal. 100 - 129 Near optimal. 130 - 159 Borderline High. 160 - 189 High. Total Cholesterol <200 desirable. 200 - 239 Borderline High. >/= 240 High. HDL < 40 Low >/=60 High. Triglycerides <150 desirable. <199 optimal. VlDL 5 - 40. HgbA1C <7%. BMI <25 Patient has diagnosis of Hyperlipidemia (ICD E78)?: Yes - Visit Date of Assessment:: 03/23/22 Session #:: 0 - Pre-cardiac rehab evaluation - Cholesterol/Lipids (Other Core Measures) Determine presence & major risk factors that modify LDL goal: Hypertension or hypertensive medication, Family history of premature CHD in Male < 55 years: female <65 yearsFa, Age men > 45 years; women >/= 55 years Outcomes/Goals: Pt IDs own risk factors & lifestyle modifications by Session 10, Verbalizes symptoms of angina & response by session 3., Pt independently manages Intervention/Plan: Instruct on personal lipid levels & lipid goals/NCEP guideli jackson, Instruct on cholesterol Referral to dietitian:: Yes - Medical Nutrition, Why Weight, DSMNT - Diabetes (Other Core Measures) Diabetes Type: Diagnosis Type II ICD-10 E11 Non-Insulin Dependent?: Yes Referral to Diabetic Clinic:: Yes Outcomes/Goals:: Able to state symptoms of, Able to state, Able to state Intervention/Plan:: Instruct on, Refer to, Instruct on - Weight Mgt (Other Care) Not Applicable: No Height: 6 ft Weight:: 250 lb 6.4 oz BMI: 34.0 Diagnosis Overweight/Obesity BMI> 30% ICD-10 E66: Yes Diagnosis High BMI/Morbid Obesity BMI> 35% ICD-10 Z68: No Outcomes/Goals: Pt sets, maintains & shows weight loss goal & trend during rehab Intervention/Plan: Instruct on ideal BMI & set weight loss goal w/patient, Assist pt to ID & incorporate diet changes for weight loss by S9, Refer to Structured Weight Loss program as appropriate, Encourage goal of using 250- 300dcal per session for weight loss - Healthy Eating Habits Will attend diet classes:: Yes Outcomes/Goals:: Consume diet rich in vegs,fruits,whole grain/high fiber,fish,lean meat, Limit sat/trans fats,cholesterol & added salts & sugars Intervention/Plan:: Assess current eating habits - Education Gave educational materials for:: Signs & symptoms of hypoglycemia, Signs & symptoms of hyperglycemia, Relate diabetes to coronary artery disease, Healthy eating Nutrition - 30-Day Assessment Nutrition - 60-Day Assessment Nutrition - 90-Day Assessment Nutrition - Final Assessment Core - Initial Assessment - Visit Date of Eval: 03/23/22 Session #:: 0 - pre-cardiac rehab evaluation - Medication Compliance Preventative Medication(s):: Aspirin, Statin/lipid H/O mental health issues: depression, anxiety, or addiction?: No Doesn?t believe in the benefits of treatment?: No Believes medications are unnecessary or harmful?: No Has a concern about medication side effects?: No Expresses concern over the cost of medications?: No Outcomes/Goals: Verbalizes medications,desired effect & common side effects @ DC, Pt self-reports following medication regimen, Keeps card in wallet w/medications listed by DC Interventions/plans: Instruct on medication effects & side effects, Review medication list w/patient every two weeks, Instruct importance of taking meds as ordered & assist problem solving - Tobacco Use Tobacco Use: Non-smoker - Hypertension Hypertension Diagnosis:: Hypertension ICD-10 I10 Resting Blood Pressure:: 126/72 [place] [employer] Hypertension Guidelines: [place] [employer] Hypertension Guidelines. Normal BP Less than 120/80. Elevated BP 120/80. Hype rtension Stage 1: BP 130-139/80-89. Hypertesnion Stage 2: BP 140 or higher/90 or higher. Hypertension Crisis: BP higher than 180/120 Outcomes/Goals: Able to verbalize/achieve optimal blood pressure <130/80, Incorporates diet changes & exercise for blood pressure control by DC Interventions/plan: Instruct on optimal blood pressure, hypertension & medications, Instruct on effects of sodium, alcohol, stress, exercise &hypertension - Tobacco Cessation Referral Smoking Cessation Referral:: No Individual Education/Counseling:: No Education Schedule Given:: Yes Core - 30-Day Assessment Core - 60-Day Assessment Core - 90 Day Assessment Core - Final Assessment Psychosocial - Initial Assess - VIsit Date of Eval: 03/23/22 Session #:: 0 - Pre-evaluation - Psychosocial Test Tool Used:: Nuno Young QOL Cardiac, PHQ-9 Questionnaire phq-9 Severity: Severity. 1-4 Minimal Depression. 5-9 Mild Depression. 10-14 Moderate Depression. 15-19 Moderately Sever Depression. 20-27 Severe Depression. Rule: - Referral to Behavioral Health PS - Interventions: Yes Attend Stress Management Classes, No Referral to Behavioral Health if PHQ-9 score >9:, No Referral to [facility], No Referral to Physician if PHQ-9 if score is 5-9: - Outcomes/Goals: See list Psychosocial Outcomes/Goals:: ID's personal stressors & 2 strategies to manage stress by discharge - Intervention/Plan: See List Interventions/Plan:: Assess stressors,coping strategies & signs of derpression on admission, Instruct/assist pt to develop coping & personal stress Mgt strategies, Instruct patient to recognize signs & symptoms of depression, Instruct patient to recog Psychosocial - 30-Day Assess Psychosocial - 60-Day Assess Psychosocial - 90-Day Assess Psychosocial - Final Assessmen Patient Health Questionnaire Initial Assessment 1. Little interest or pleasure in doing things: Not at all 2. Feeling down, depressed, or hopeless: Not at all 3. Trouble falling or staying asleep, or sleeping too much: Not at all 4. Feeling tired or having little energy: Not at all 5. Poor appetite or overeating: Not at all 6. Feeling bad about yourself -- or that you are a failure or have let yourself or your family down: Not at all 7. Trouble concentrating on things, such as reading the newspaper or watching television: Not at all 8. Moving or speaking so slowly that other people could have noticed. Or the opposite - being so fidgety or restless that you have been moving around a lot more than usual: Not at all 9. Thoughts that you would be better off , or of hurting yourself in some way: Not at all How difficult have these problems made it for you to do your work, take care of things at home, or get along with other people?: Not difficult at all Total Score: 0 PANTERA-Q SV Test - Statements CAD is a disease of the arteries in the heart: False Examples of risk factors for heart disease: True Angina is chest pain or discomfort: True The benefits of resistance training include: False Eating more meat and dairy products: False Anti-platelet medications such as aspirin are important: False The only effective way to manage stress: False An exercise warm-up slowly increases heart rate: False Prepared, processed foods usually have high sodium: True Depression is common after a heart attack: True The statin medications lower cholesterol: True To control blood pressure, lower the amount of sodium: True If someone gets chest discomfort during walking: False Transfats are partially hydrogenated vegetable oils: True Sleep apnea that is not treated increases the risk: True To control cholesterol, one should become a vegetarian: False Someone knows if he/she is exercising at the right level: True Diabetes cannot be prevented with exercise & health eating: False Stress is a large risk for heart attack: True A diet that can help lower blood pressure is rich in: True - Total Score Total Correct Responses: 16 Self-Efficacy Initial Assessment We would like to know how confident you are in doing certain activities. Please select your confidence level for:: Select your confidence level for the following using the scale 1-10 where 1 is not at all confident and 10 is totally confident. Your score is the average of all 6 responses. Fatigue: How confident are you that you can keep the fatigue caused by your disease from interfering with the things you want to do? Select Number: 10 Physical Discomfort or Pain: How confident are you that you can keep the physical discomfort or pain of your disease from interfering with the things you want to do? Select Number: 10 Emotional Distress: How confident are you that you can keep the emotional distress caused by your disease from interfering with the things you want to do? Select Number: 10 Other Symptoms or Health Problems: How confident are you that you can keep other symptoms or health problems from interfering with the things you want to do? Select Number: 10 Different Tasks and Activities: How confident are you that you can do the different tasks and activities needed to manage your health condition so as to reduce your need to see a doctor? Select Number: 10 Medication: How confident are you that you can do things other than just taking medication to reduce how much your illness affects your everyday life? Select Number: 10 Total Score:: 10 Nutrition Survey - Nutrition Survey Initial Have you lost >10 lbs over the past 2 months without trying?: Yes Are you following a special diet at home for diabetes, low fat, or low salt?: Yes Are you interested in meeting with a dietitian for help understanding your diet?: Yes Do you eat less than 3 meals a day?: Yes Do you eat fatty meats (sanderson, sausage, ribs, etc), fried foods, desserts, large amounts of salad dressings, margarine, butter, or cheese most days?: No Do you have food allergies? [Enter types in comment field]: Yes Do you eat in restaurants more than 3 times a week?: Yes Do you season food with salt, seasoning salt, or garlic salt?: Yes Do you used canned, boxed, frozen meals, or soups, seasoning packets?: No Total Score:: 7
[2022-03-23 13:33] VITALS: BP 120/74; BP 120/76; PULSE 84; RESP 14; TEMP 35; O2SAT 95; BMI 32.9
[2022-03-23 14:21] VITALS: BP 126/72; BMI 34.0
== END | disposition home or self-care (01) ==
PROVIDERS: PCP Family Medicine; Visit Provider Internal Medicine Cardiovascular Disease
DX: I21.9 Acute myocardial infarction, unspecified (principal); Z95.5 Presence of coronary angioplasty implant and graft

== ENCOUNTER 2022-03-26 08:02 | Outpatient (RCR) | payer OTHER, SELFPAY ==
[2022-03-23 13:15] VITALS: BMI 34.0
== END 2022-03-27 23:59 ==
LOC: CR 08:02
PROVIDERS: PCP Family Medicine; Visit Provider Internal Medicine Cardiovascular Disease
DX: I25.5 Ischemic cardiomyopathy (principal); I10 Essential (primary) hypertension; I25.10 Atherosclerotic heart disease of native coronary artery without angina pectoris; Z95.2 Presence of prosthetic heart valve
CPT/HCPCS: 93798

== ENCOUNTER → 2022-04-18 | Outpatient (CLI) | payer OTHER, SELFPAY ==
[2022-03-23 14:21] VITALS: BMI 34.0
[2022-04-18 11:54] LABS: AST(SGOT) 22 U/L (15-37); Alanine Aminotransfer ALT/SGPT 32 U/L (16-61); Albumin, Serum 4.5 g/dL (3.2-5.0); Alkaline Phosphatase 94 U/L (45-117); Bilirubin, Direct 0.15 mg/dL (0.00-0.30); Cholesterol 133 mg/dL (200); High Density Lipoprotein 38 mg/dL; Protein, Total 7.5 g/dL (6.4-8.2); Triglycerides 149 mg/dL; Very Low Density Lipoprotein 30 mg/dL (5-40)
== END | disposition home or self-care (01) ==
LOC: LAB 10:24
PROVIDERS: PCP Family Medicine; Referring Provider Internal Medicine Cardiovascular Disease; Visit Provider Internal Medicine Cardiovascular Disease
DX: E78.5 Hyperlipidemia, unspecified (principal); Z95.5 Presence of coronary angioplasty implant and graft
CPT/HCPCS: 36415; 80061; 80076

== ENCOUNTER 2022-04-20 08:00 | Outpatient (RCR) | payer OTHER, SELFPAY ==
[2022-03-23 14:21] VITALS: BMI 34.0
== END 2022-04-24 23:59 ==
LOC: CR 08:00
PROVIDERS: PCP Family Medicine; Visit Provider Internal Medicine Cardiovascular Disease
DX: I10 Essential (primary) hypertension (principal); I25.10 Atherosclerotic heart disease of native coronary artery without angina pectoris; I25.2 Old myocardial infarction; Z95.5 Presence of coronary angioplasty implant and graft
CPT/HCPCS: 93798

== ENCOUNTER 2022-05-25 08:00 | Outpatient (RCR) | payer OTHER, SELFPAY ==
[2022-03-23 14:21] VITALS: BMI 34.0
--- NOTE | 2022-05-21 12:51 | CR.ITP_ITS ---
Diagnosis Exercise - 60-day Assessment - Visit Date of Eval: 05/21/22 Session #:: 25 - Physician Prescribed Exercise Modalities: Treadmill, Airdyne, NuStep Frequency: 3x/week for 12 weeks [36 sessions] Intensity: 60-80% of age predicted maximum heart rate reserve Current METSs:: 7.5 Target Heart Rate:: 136-150 Current RPE:: 10 Maximum Excercise HR:: 154 Resting Blood Pressure: 128/80 Maximum Exercise Blood Pressure: 170/84 EKG Type: SR to ST with rare PAC - Outcomes & Goals Goals:: Verbalizes understanding of THR, RPE & goal METS by session 6, Documents in home exercise log/reports 30 min aerobic 5 day/wk by DC, Demonstrates accurate pulse taking by DC, Other additional outcome/goals: see below - Intervention & Plan Exercise Program Goals: Instruct on personal THR & RPE, Instruct on MET level & personal MET goal, Show patient to take own pulse /validate performance until accurate, Instruct on home exercise, Other additional plan/int - 30-day Reassessments 30 day Reassessments:: Progressing - THR explained - Physical Activity Home Exercise Physical Activity - Home Exercise: Safe Exercise, Warm-up, Self-monitoring, Cool-Down, Home Exercise > 30 min Daily, Sitting Time <3 hours/daily - Outcomes & Goals Outcomes/Goals: Demonstrates correct Warm-up/exercise Cool-Down (S3) if = 2.5 METs, Verbalizes symptoms of exercise intolerance by Session 3 (S3), Demonstrate safe equipment use (S3) & follows exercise prescrition (6), Other: See below - Intervention & Plan Plan/Intervention: Instruct warm-up & cool-down if exercising at > 2 METs, Instruct on symptoms of exercise intolerance & actions to take, Instruct & monitor on saf, Assess intial functional capacity & safety risk, Other See below - 30-day Reassessments 30 day Reassessments:: Progressing - cool down encouraged Nutrition - Initial Assessment Nutrition - 30-Day Assessment Nutrition - 60-Day Assessment - Program Goals Nutrition Program Goals: LDL <100 optimal. 100 - 129 Near optimal. 130 - 159 Borderline High. 160 - 189 High. Total Cholesterol <200 desirable. 200 - 239 Borderline High. >/= 240 High. HDL < 40 Low >/=60 High. Triglycerides <150 desirable. <199 optimal. VlDL 5 - 40. HgbA1C <7%. BMI <25 Patient has diagnosis of Hyperlipidemia (ICD E78)?: Yes - Visit Date of Assessment:: 05/21/22 Session #:: 25 - Cholesterol/Lipids (Other Core Measures) Determine presence & major risk factors that modify LDL goal: Hypertension or hypertensive medication, Low HDL cholesterol <40 mg/dL*, Family history of premature CHD in Male < 55 years: female <65 yearsFa, Age men > 45 years; women >/= 55 years Outcomes/Goals: Pt IDs own risk factors & lifestyle modifications by Session 10, Verbalizes symptoms of angina & response by session 3., Pt independently manages, Other Additional Outcomes/Goals: Intervention/Plan: Advocate for lipid panel cholesterol medication if applicable, Instruct on personal lipid levels & lipid goals/NCEP guidelines, Instruct on cholesterol, Other additional plan/int Referral to dietitian:: Yes - medical nutrition therapy 30-day Reassessments:: Progressing - encouraged to take meds - Diabetes (Other Core Measures) Diabetes Type: Diagnosis Type II ICD-10 E11 Non-Insulin Dependent?: Yes Referral to Diabetic Clinic:: Yes Outcomes/Goals:: Able to state symptoms of, Able to state, Able to state, Other additional Intervention/Plan:: Instruct on, Refer to, Instruct on, Other 30-day Reassessments:: Progressing - encouraged to monitor blood sugar - Weight Mgt (Other Care) Height: 6 ft Weight:: 102.512 kg BMI: 30.6 Diagnosis Overweight/Obesity BMI> 30% ICD-10 E66: Yes Diagnosis High BMI/Morbid Obesity BMI> 35% ICD-10 Z68: No Outcomes/Goals: Pt sets, maintains & shows weight loss goal & trend during rehab, Other additional outcomes/goals Intervention/Plan: Instruct on ideal BMI & set weight loss goal w/patient, Assist pt to ID & incorporate diet changes for weight loss by S9, Refer to Structured Weight Loss program as appropriate, Encourage goal of using 250- 300dcal per session for weight loss, Other additional plan/interventions 30 day Reassessments:: Progressing - will attend nutrition class - Healthy Eating Habits Will attend diet classes:: Yes Outcomes/Goals:: Consume diet rich in vegs,fruits,whole grain/high fiber,fish,lean meat, Limit sat/trans fats,cholesterol & added salts & sugars, Other additional outcome/goals: Intervention/Plan:: Assess current eating habits, Other Additional plan/interventions 30-day Reassessments:: Progressing - will attend nutrition class - Education Gave educational materials for:: Signs & symptoms of hypoglycemia, Signs & symptoms of hyperglycemia, Relate diabetes to coronary artery disease, Healthy eating Nutrition - 90-Day Assessment Nutrition - Final Assessment Core - Initial Assessment Core - 30-Day Assessment Core - 60-Day Assessment - Visit Date of Eval: 05/21/22 Session #:: 25 - Medication Compliance Preventative Medication(s):: Aspirin, Statin/lipid H/O mental health issues: depression, anxiety, or addiction?: No Doesn?t believe in the benefits of treatment?: No Believes medications are unnecessary or harmful?: No Has a concern about medication side effects?: No Expresses concern over the cost of medications?: No Outcomes/Goals: Verbalizes medications,desired effect & common side effects @ DC, Pt self-reports following medication regimen, Keeps card in wallet w/medications listed by DC, Other additional outcome/goals: Interventions/plans: Instruct on medication effects & side effects, Review medication list w/patient every two weeks, Instruct importance of taking meds as ordered & assist problem solving, Other additional 30-day Reassessments:: Progressing - encouraged to take meds - Tobacco Use Tobacco Use: Non-smoker - Hypertension Hypertension Diagnosis:: Hypertension ICD-10 I10 Resting Blood Pressure:: 128/80 [place] [employer] Hypertension Guidelines: [place] [employer] Hypertension Guidelines. Normal BP Less than 120/80. Elevated BP 120/80. Hypertension Stage 1: BP 130-139/80-89. Hypertesnion Stage 2: BP 140 or higher/90 or higher. Hypertension Crisis: BP higher than 180/120 Peak Exercise Blood Pressure:: 170/84 Outcomes/Goals: Able to verbalize/achieve optimal blood pressure <130/80, Incorporates diet changes & exercise for blood pressure control by DC, Other additional outcomes/goals Interventions/plan: Instruct on optimal blood pressure, hypertension & medications, Instruct on effects of sodium, alcohol, stress, exercise &hypertension, Other additional plan/interventions 30 day Reassessments:: Progressing - encouraged to take meds - Tobacco Cessation Referral Smoking Cessation Referral:: No Individual Education/Counseling:: No Education Schedule Given:: Yes Core - 90 Day Assessment Core - Final Assessment Psychosocial - Initial Assess Psychosocial - 30-Day Assess Psychosocial - 60-Day Assess - VIsit Date of Eval: 05/21/22 Session #:: 25 History of previous Mental disease:: No Psychosocial - 90-Day Assess Psychosocial - Final Assessmen Patient Health Questionnaire 60-Day Re-eval Assessment 1. Little interest or pleasure in doing things: Not at all 2. Feeling down, depressed, or hopeless: Not at all 3. Trouble falling or staying asleep, or sleeping too much: Not at all 4. Feeling tired or having little energy: Not at all 5. Poor appetite or overeating: Not at all 6. Feeling bad about yourself -- or that you are a failure or have let yourself or your family down: Not at all 7. Trouble concentrating on things, such as reading the newspaper or watching television: Not at all 8. Moving or speaking so slowly that other people could have noticed. Or the opposite - being so fidgety or restless that you have been moving around a lot more than usual: Not at all 9. Thoughts that you would be better off , or of hurting yourself in some way: Not at all How difficult have these problems made it for you to do your work, take care of things at home, or get along with other people?: Not difficult at all Total Score: 0 Self-Efficacy 60-Day Re-eval Assessment We would like to know how confident you are in doing certain activities. Please select your confidence level for:: Select your confidence level for the following using the scale 1-10 where 1 is not at all confident and 10 is totally confident. Your score is the average of all 6 responses. Fatigue: How confident are you that you can keep the fatigue caused by your disease from interfering with the things you want to do? Select Number: 10 Physical Discomfort or Pain: How confident are you that you can keep the physical discomfort or pain of your disease from interfering with the things you want to do? Select Number: 10 Emotional Distress: How confident are you that you can keep the emotional distress caused by your disease from interfering with the things you want to do? Select Number: 10 Other Symptoms or Health Problems: How confident are you that you can keep other symptoms or health problems from interfering with the things you want to do? Select Number: 10 Different Tasks and Activities: How confident are you that you can do the different tasks and activities needed to manage your health condition so as to reduce your need to see a doctor? Select Number: 10 Medication: How confident are you that you can do things other than just taking medication to reduce how much your illness affects your everyday life? Select Number: 10 Total Score:: 10 Nutrition Survey
[2022-05-21 13:06] VITALS: BP 128/80; BP 170/84; BMI 30.6
== END 2022-05-25 23:59 ==
LOC: CR 08:00
PROVIDERS: PCP Family Medicine; Visit Provider Internal Medicine Cardiovascular Disease
DX: I25.2 Old myocardial infarction (principal); I10 Essential (primary) hypertension; I25.10 Atherosclerotic heart disease of native coronary artery without angina pectoris; Z95.5 Presence of coronary angioplasty implant and graft
CPT/HCPCS: 93798

== ENCOUNTER 2022-06-18 08:00 | Outpatient (RCR) | payer OTHER, SELFPAY ==
[2022-05-21 13:06] VITALS: BMI 30.6
[2022-05-26 01:56] VITALS: BP 128/80; BP 170/84
== END 2022-06-24 23:59 ==
LOC: CR 08:00
PROVIDERS: PCP Family Medicine; Visit Provider Internal Medicine Cardiovascular Disease
DX: I25.2 Old myocardial infarction (principal); I10 Essential (primary) hypertension; I25.10 Atherosclerotic heart disease of native coronary artery without angina pectoris; Z95.5 Presence of coronary angioplasty implant and graft
CPT/HCPCS: 93798

== ENCOUNTER → 2022-11-09 | Outpatient (CLI) | payer OTHER, SELFPAY ==
[2022-05-21 13:06] VITALS: BMI 30.6
--- NOTE | 2022-11-09 13:38 | ECHOL_ITS ---
Reason For Study: CHF Procedure This was a limited 2D transthoracic echocardiogram. Exam performed in department. Left Ventricle Normal LV size. Left ventricular systolic function is normal. The estimated ejection fraction is 65 %. No regional wall motion abnormalities noted. Right Ventricle Normal RV size. Normal systolic function. Atria Normal left atrium. Normal right atrium. Mitral Valve Normal mitral valve. Tricuspid Valve Normal tricuspid valve. Aortic Valve Normal aortic valve. Pulmonic Valve Normal pulmonic valve. Great Vessels Normal aortic root. The pulmonary artery is normal size. Normal inferior vena cava. Pericardium/Pleural No pericardial effusion. MMode/2D Measurements & Calculations LVIDd: 4.2 cm IVSd: 1.1 cm LAV(MOD-bp): 70.4 ml LVIDs: 2.8 cm LVPWd: 1.0 cm LAV(MOD-bp) Indexed: 31.5 ml/m2 FS: 34.5 % LAV(MOD-sp2): 71.9 ml LAV(MOD-sp4): 64.5 ml SV(MOD-sp4): 51.4 ml SV(sp4-el): 56.8 ml LVAd ap4: 30.5 cm2 LVLd ap4: 8.6 cm EDV(MOD-sp4): 86.0 ml EDV(sp4-el): 91.7 ml LVAs ap4: 16.8 cm2 LVLs ap4: 6.9 cm ESV(MOD-sp4): 34.6 ml ESV(sp4-el): 34.9 ml EF(MOD-sp4): 59.7 % EF(sp4-el): 61.9 % LA A4 area: 21.8 cm2 RA A4 area: 14.0 cm2 ECHO/Echo, Limited Study Interpretation Summary Normal LV size. Left ventricular systolic function is normal. The estimated ejection fraction is 65 %. Normal left atrium. Ordering Physician: Philippe Stewart Referring Physician: Philippe Stewart Performed By: Lo Bearden RCS
== END | disposition home or self-care (01) ==
LOC: CVS 13:38
PROVIDERS: PCP Family Medicine; Referring Provider Nurse Practitioner Family; Visit Provider Nurse Practitioner Family
DX: I25.5 Ischemic cardiomyopathy (principal); I50.9 Heart failure, unspecified; I11.0 Hypertensive heart disease with heart failure; Z95.5 Presence of coronary angioplasty implant and graft
CPT/HCPCS: 93308

== ENCOUNTER 2022-11-27 09:00 | Outpatient (RCR) | payer OTHER, SELFPAY ==
[2022-05-21 13:06] VITALS: BMI 30.6
--- NOTE | 2022-11-12 13:54 | HP.PTEVAL2 ---
Patient's Visit Information Visit Information Visit Information: VIANNEY GONZALEZ is a 61 year old M referred to Physical Therapy by Dr. Eliecer Prasad DO with a diagnosis of . Date of Evaluation: Physical Therapist: Fco Mcgowan PT, Cert MDT, OCS Anticipated Interventions text: Thank you for the opportunity to evaluate your patient. For Medicare and Medicare HMO plans, please review the plan of care and approve it. It will need to be FAXED BACK to us at [phone] for Medicare purposes. For Medicare only, by signing this I certify the plan of care. Please let me know if there are questions or concerns regarding this plan of care. Physician Signature: Date:
--- NOTE | 2022-11-12 13:54 | HP.PTEVAL ---
Patient's Visit Information Visit Information Visit Information: VIANNEY GONZALEZ is a 61 year old M referred to Physical Therapy by Dr. Eliecer Prasad DO with a diagnosis of RADICULOPATHY CERVICAL REGION ,OTHER CERVICAL DISC DEGENERATION ,SHOULDER L. Date of Evaluation: 11/12/22 Physical Therapist: Fco Mcgowan, PT, Cert MDT, OCS Visit Plan Frequency: 2x /Week Duration: 4 Weeks Plan: PT INTERVETIONS MODALTIES US/ESTIM/CP ,ROM SHOOULDER ,POSTURAL EX'S RTC/SCAPULAR STRENGTHENING Subjective Subjective: This 61 y/o male presents to physical therapy with neck and and let shoulder pain. Patient has had pain since last December 2021 . Patient symptoms progressively worse . Patient had PA last year. Seen family MD tried ex's. Patient was referred to [facility] had x-rays showed DDD. Pain located left shoulder global no cervical pain. Pain had cortisone injection in shoulder Aggravating factors lifting OH ,reaching with left shoulder affects ADLS and housework tasks . Alleviating factors rest .Patient has paresthesia/tingling in left shoulder. No pain in cervical spine with movement rotation. Pain affects sleeping . Denies THOMAS /nausea/tinnitus . No injury or trauma. Patient condition affects QOL and function and job demands. Patient goals to heave no pain. SOCAIL: single VOCATION: [employer] Pain Left Shoulder: Pain Intensity (Out of 10): 7 Pain Intensity Range: 10 Objective Objective: POSTURE: mild forward posture NEURO: c/o paresthesia/tingling left arm , myotome C5-6 ,reflexes C5-6-7 PALPATION: tender anterior shoulder ,long head bicep, and pec major AROM: shoulder flexion 90 degrees pain .abduction 90 degrees pain ,IR pelvis pain ,ER 80 degrees pain PROM: flexion/abduction 160 degrees pain ,ER 90 degrees MMT: ( peak force) infraspinatus 4.7 pain ,subscapularis 4.8 pin ,supraspinatus 3.7 pain biceps 11.6 pain ,triceps 12.7 pain CERVICAL ROM: flexion min loss ,extension mod loss ,rotation/lateral flexion mod loss Special Tests C/S Radiculapathy - Left Upper limb tension test: Positive C/S Radiculapathy - Right Upper limb tension test: Negative C/S Radiculapathy - Left Spurlings: Negative C/S Radiculapathy - Right Spurlings: Negative C/S Radiculapathy - Left Cervical distraction: Negative C/S Radiculapathy - Right Cervical distraction: Negative Sharp Pete: Negative Vertebral Artery Test: Negative Alar Ligament Test: Negative Cervical Sitting: Protrusion - Mechanical Response: No effect Cervical Sitting: Protrusion - Symptoms During Testing: No effect Cervical Sitting: Protrusion - Symptoms After Testing: No effect Cervical Sitting: Retraction - Mechanical Response: No effect Cervical Sitting: Retraction - Symptoms During Testing: No effect Cervical Sitting: Retraction - Symptoms After Testing: No effect Cervical Sitting: Retraction-Extension - Mechanical Response: No effect Cerv Sitting: Retraction-Extension - Symptoms During Testing: No effect Cerv Sitting: Retraction-Extension - Symptoms After Testing: No effect Cervical Sitting: Sidebend Right - Mechanical Response: No effect Cervical Sitting: Sidebend Right - Symptoms During Testing: No effect Cervical Sitting: Sidebend Right - Symptoms After Testing: No effect Cervical Sitting: Sidebend Left - Mechanical Response: No effect Cervical Sitting: Sidebend Left - Symptoms During Testing: No effect Cervical Sitting: Sidebend Left - Symptoms After Testing: No effect Cervical Sitting: Rotation Right - Mechanical Response: No effect Cervical Sitting: Rotation Right - Symptoms During Testing: No effect Cervical Sitting: Rotation Right - Symptoms After Testing: No effect Cervical Sitting: Rotation Left - Mechanical Response: No effect Cervical Sitting: Rotation Left - Symptoms During Testing: No effect Cervical Sitting: Rotation Left - Symptoms After Testing: No effect Cervical Sitting: Flexion - Mechanical Response: No effect Cervical Sitting: Flexion - Symptoms During Testing: No effect Cervical Sitting: Flexion - Symptoms After Testing: No effect L Shoulder External Rotation Lag Test - RC Tear: Negative L Shoulder Lift Off Test - Subscapular Tear: Negative L Shoulder Drop Sign - IS Test: Positive L Shoulder Empty Can - SS: Positive L Shoulder Belly Press - SupScap: Negative L Shoulder Neer - Impingement: Positive L Shoulder Shrug Sign - OA/Adhesive Capsulitis: Negative Balance/Special Test Scores Quick DASH Score: 63.6350 Goals Goal 1:: Patient to be I with HEP RTC /posture Goal Time Frame: 4-6 Weeks Goal 2:: Patient to improve AROM shoulder flexion /abduction and ER to improve OH activities for ADLS Goal Time Frame: 4-6 Weeks Goal 3:: Patient to demonstrate 50% improvement with decrease pain and improved function Goal Time Frame: 4-6 Weeks Goal 4:: Patient to increase peak force of shoulder RTC/deltoid and biceps by 10-15 # strength to improve function Goal Time Frame: 4-6 Weeks Goal 5:: Patient to improve quick dash by 5 points or > to improve function and QOL Goal Time Frame: 4-6 Weeks Rehabilitation Potential Physical Therapy Diagnosis: Patient has shoulder pain with weakness RTC and pain with AROM and activities affecting ADLS and housework tasks ,patient has cervical ROM limited but no pain but has some myotome weakness thus benefit from skilled PT Rehabilitation Potential: Good Anticipated Interventions Patient/Client Instruction: Educate patient on: Condition and Plan of Care For the Purpose of:: To decrease pain, To increase ROM, To improve muscle performance and motor function, To improve ability to perform ADL's, To improve performance and independence with ADL's, To improve ability of physical actions for home/community/work/leisure, To improve health of tissue, To decrease soft tissue restriction and To increase flexibility/ROM Therapeutic Exercise to Include: Strength training, Postural training, Flexibilty training and Active ROM Comment: RTC For the Purpose of:: To decrease pain, To increase ROM, To improve muscle performance and motor function, To improve ability to perform ADL's, To improve ability of physical actions for home/community/work/leisure, To improve gait and locomotor functions, To increase flexibility/ROM, To reduce risk of recurrence and To improve tolerance to ADL's TENS: Yes IF ES: Yes Cryotherapy (ice pack, ice massage): Yes Thermo therapy (hot pack): Yes Ultrasound (thermal/non thermal): Yes For the Purpose of:: To decrease pain, To increase ROM, To improve nutrient delivery to tissue, To increase oxygenation perfusion, To improve health of tissue, To decrease soft tissue restriction and To improve tolerance to ADL's Text: Thank you for the opportunity to evaluate your patient. For Medicare and Medicare HMO plans, please review the plan of care and approve it. It will need to be FAXED BACK to us at [phone] for Medicare purposes. For Medicare only, by signing this I certify the plan of care. Please let me know if there are questions or concerns regarding this plan of care. Physician Signature: Date:
== END 2022-11-27 19:00 | disposition home or self-care (01) ==
LOC: PT 09:00
PROVIDERS: PCP Family Medicine; Referring Provider Orthopaedic Surgery; Visit Provider Orthopaedic Surgery
DX: M54.12 Radiculopathy, cervical region (principal); M50.30 Other cervical disc degeneration, unspecified cervical region; M75.82 Other shoulder lesions, left shoulder
CPT/HCPCS: 97014; 97035; 97110; 97162; G0283

== ENCOUNTER → 2022-12-13 | Outpatient (CLI) | payer OTHER, SELFPAY ==
[2022-05-21 13:06] VITALS: BMI 30.6
[2022-12-13 13:26] LABS: AST(SGOT) 18 U/L (15-37); Alanine Aminotransfer ALT/SGPT 31 U/L (16-61); Albumin, Serum 4.2 g/dL (3.2-5.0); Alkaline Phosphatase 105 U/L (45-117); Anion Gap 8 (5-15); BUN 16 mg/dL (7-18); BUN/Creat Ratio 17.6 RATIO (10-20); Bilirubin, Direct 0.22 mg/dL (0.00-0.30); Calcium,Total 9.5 mg/dL (8.5-10.1); Chloride 107 mmol/L (98-107); Cholesterol 140 mg/dL (200); Creatinine, Serum 0.91 mg/dL (0.70-1.30); EST Glomerular Filtration Rate 90 mL/min (>60); Est Glom Filt Rate - Afr Amer 109 mL/min (>60); Globulin 3.3 g/dL (2.2-4.2); Glucose 106 mg/dL (74-106); High Density Lipoprotein 49 mg/dL; Potassium 3.8 mmol/L (3.5-5.1); Protein, Total 7.5 g/dL (6.4-8.2); Sodium Level 141 mmol/L (136-145); Triglycerides 132 mg/dL; Very Low Density Lipoprotein 26 mg/dL (5-40)
== END | disposition home or self-care (01) ==
LOC: BIMLAB 10:42
PROVIDERS: Internal Medicine Cardiovascular Disease; PCP Family Medicine; Referring Provider Family Medicine; Visit Provider Family Medicine
DX: E78.00 Pure hypercholesterolemia, unspecified (principal); Z95.5 Presence of coronary angioplasty implant and graft
CPT/HCPCS: 36415; 80048; 80061; 80076

== ENCOUNTER → 2023-12-10 | Outpatient (CLI) | payer OTHER, SELFPAY ==
[2022-05-21 13:06] VITALS: BMI 30.6
[2023-12-10 12:58] LABS: ALB/GLOB Ratio 1.3 RATIO (0.9-2.4); AST(SGOT) 16 U/L (15-37); Alanine Aminotransfer ALT/SGPT 26 U/L (16-61); Albumin, Serum 4.3 g/dL (3.2-5.0); Alkaline Phosphatase 112 U/L (45-117); Anion Gap 9 (5-15); BUN 29 mg/dL (7-18); BUN/Creat Ratio 27.1 RATIO (10-20); Calcium,Total 9.6 mg/dL (8.5-10.1); Chloride 108 mmol/L (98-107); Cholesterol 163 mg/dL (200); Creatinine, Serum 1.07 mg/dL (0.70-1.30); EST Glomerular Filtration Rate 74 mL/min (>60); Est Glom Filt Rate - Afr Amer 90 mL/min (>60); Globulin 3.2 g/dL (2.2-4.2); Glucose 145 mg/dL (74-106); High Density Lipoprotein 55 mg/dL; Potassium 3.9 mmol/L (3.5-5.1); Protein, Total 7.5 g/dL (6.4-8.2); Sodium Level 141 mmol/L (136-145); Triglycerides 102 mg/dL; Very Low Density Lipoprotein 20 mg/dL (5-40)
== END | disposition home or self-care (01) ==
LOC: BIMLAB 08:54
PROVIDERS: PCP Family Medicine; Visit Provider Family Medicine
DX: E78.2 Mixed hyperlipidemia (principal)
CPT/HCPCS: 36415; 80053; 80061

== ENCOUNTER 2024-01-14 17:30 | Outpatient (RCR) | payer OTHER, SELFPAY ==
[2022-05-21 13:06] VITALS: BMI 30.6
--- NOTE | 2023-11-26 18:17 | HP.PTEVAL_ITS ---
Patient's Visit Information Visit Information Visit Information: VIANNEY GONZALEZ is a 62 year old M referred to Physical Therapy by Dr. Jaquan Sanz DPM with a diagnosis of B PFitis. Date of Evaluation: 11/26/23 Physical Therapist: Ashwin Jj DPT, OCS, CSCS Visit Plan Frequency: 3x /Week Duration: 4-6 Weeks Plan: 3x/week for 3-6... IE: given towel toe curls, Ankle circles, seated heel toe raises, PF rollout 1 min and gastroc soleus stretch 1st in am 30: 5x and another time during day. Keep feet mobile, benefits of night splint and possibility of shockwave /ionto but not covered by insurance. In clinic: please: US nonthermal B PF origin on calcaneus, then B foot STM and gastroc IASTM and stretch PF and gastroc/soleus. desensitization massage.Calcaneal mobs eventually progress to ankle/foot strength Subjective Subjective: B heel pain for 3-4 months. Returned to work and was on feet for 14 hr days on concrete but not unusual. 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 is typically always on feet. Worsening. has been stretching rolling golf ball on feet and stretching gastroc 30 seconds 10 daily and does them at night and in am. Not helping any. Ice, and put on cream antiinflammatory but not much help. Has been on it a week. Sleep is interrupted every now and then especially if he gets up at night, using cane. On them then he can deal with it but first number of steps hurt. Quit working at [employer] one last week and now is at desk which treats him better. Wears NEW balance shoes. has orhtotics for foot pain 3 months which have not helped custom foot scan. Pain B heels: Pain Intensity (Out of 10): 4 Pain Intensity Range: 4, 5 and 10 Comment: 10 on feet long time. Objective Objective: Walks gingerly back to PT with short steps and avoiding ankle pushoff and heel strike B. I with gait and trasnfers. Max tender through Body of B PF, into calcaneal olantar surface medial and lateral. Toes move well, arch in standing is mild cavus. Hindfoot looks good. Stiff calcaneus B inv/ev. Overall ankle ROM PF inv and ev are WNL B, DF limited to 4 degrees aROM B and painful in plantar surface. ankle strength 4/5 inv/ev,and 4+DF and PF. knee strength 4+ gastroc and soleus mild tight B. Pt hypersensitive on underside of B feet but numb into metatarsals heads and toes B(from previous back problems) Balance/Special Test Scores Lower Extremity Functional Score: 44 Goals Goal 1:: Pain in heels 0-2/10 at worst and 755 improved Goal Time Frame: 4-6 Weeks Goal 2:: pt I in appropriate ex to manage condition Goal Time Frame: 4-6 Weeks Goal 3:: Stand up from desk at work without pain Goal Time Frame: 4-6 Weeks Goal 4:: 56 LEFS Goal Time Frame: 4-6 Weeks Rehabilitation Potential Physical Therapy Diagnosis: foot pain limiting comfortable funciton Rehabilitation Potential: Fair Anticipated Interventions Patient/Client Instruction: Educate patient on: Condition and Plan of Care For the Purpose of:: To decrease pain, To increase ROM, To improve nutrient delivery to tissue, To improve muscle performance and motor function and To increase tolerance to activity/condition/position Therapeutic Exercise to Include: Strength training, Postural training, Flexibilty training, Passive ROM and Active ROM For the Purpose of:: To decrease pain, To increase ROM, To improve nutrient delivery to tissue, To improve muscle performance and motor function and To increase tolerance to activity/condition/position Manual Therapy Techniques to Include: Petrissage, Mobilization, Passive ROM and Soft tissue mobilization For the Purpose of:: To decrease pain, To increase ROM and To improve nutrient delivery to tissue Cryotherapy (ice pack, ice massage): Yes Ultrasound (thermal/non thermal): Yes (nonthermmal) For the Purpose of:: To decrease pain and To decrease swelling/inflammation Text: Thank you for the opportunity to evaluate your patient. For Medicare and Medicare HMO plans, please review the plan of care and approve it. It will need to be FAXED BACK to us at [phone] for Medicare purposes. For Medicare only, by signing this I certify the plan of care. Please let me know if there are questions or concerns regarding this plan of care. Physician Signature: Date:
--- NOTE | 2024-01-14 18:28 | HP.PTDCSUM ---
Discharge Summary D/C summary: It has been my pleasure to treat VIANNEY GONZALEZ referred by Dr. Jaquan Sanz DPM, with the diagnosis of B PFitis for a total of 14 visit(s). Discharge Date: 01/14/24 Please see the following information for a summary of their discharge status. Subjective Subjective: I am doing better. I still have a lot of pain when sitting long time and then standing especially at night. Better in the am once he gets moving. Otherwise doing really well. Will get orthotics next week. Will be in soon. Had injections on R foot a couple weeks ago. Did not really help much. 40% better. HEP going well and doing daily. To Dr. Sanz 01/26. Pain B heels: Pain Intensity (Out of 10): 4 Overall Improvement % Improvement: 40 Objective Objective/Function: Tender maximally in r calcaneal plantar surface and into PF and back onto posterior calcaneus medial and laterally. L has mild tenderness hardly worhth mentioning. Heel raise and toe raise I. Walks mildly flat footed but I and painful, steps are done reciprocally today. Obvious weakness in toes(numbness and weakness from previous back problems) gives him a hard time pushing off with toes. Mentioned to patient need to continue HEP and also other possible options of night splint (which he may get after his orthotics) and ionto and RPW which will not be covered by his inusrance but mught be worthy options if no other solutions present themselves. Goals Goal 1:: Pain in heels 0-2/10 at worst and 755 improved Goal Progress: 40% only Goal 2:: pt I in appropriate ex to manage condition Goal Progress: Goal Met Goal 3:: Stand up from desk at work without pain Goal Progress: intermittently Goal 4:: 56 LEFS Goal Progress: Not Progressing Plan Plan: d/c to HEP and to see doctor in 2 weeks D/C Information d/c sentence: If there are questions or concerns regarding this patient's physical therapy, please feel free to call me at [phone]. Thank you for the referral of this patient. Sincerely, Ashwin Jj, DPT, OCS, CSCS Balance/Gait/Functional tests Balance/Special Test Scores Lower Extremity Functional Score: 46 Improvement % Improvement: 40
== END 2024-01-14 19:00 | disposition home or self-care (01) ==
LOC: PT 17:30
PROVIDERS: PCP Family Medicine; Referring Provider Student in an Organized Health Care Education/Training Program; Visit Provider Student in an Organized Health Care Education/Training Program
DX: M72.2 Plantar fascial fibromatosis (principal)
CPT/HCPCS: 97035; 97110; 97140; 97162; 97530

== ENCOUNTER → 2024-12-16 | Outpatient (CLI) | payer OTHER, SELFPAY ==
[2022-05-21 13:06] VITALS: BMI 30.6
[2024-12-16 12:54] LABS: AST(SGOT) 25 U/L (<=37); Alanine Aminotransfer ALT/SGPT 27 U/L (<=46); Albumin, Serum 4.4 g/dL (3.4-4.8); Alkaline Phosphatase 100 U/L (40-129); Anion Gap 12 (5-15); BUN 16 mg/dL (4-19); BUN/Creat Ratio 16.7 RATIO (10-20); Calcium,Total 9.5 mg/dL (7.6-11.0); Carbon Dioxide 21.9 mmol/L (21.0-32.0); Chloride 105 mmol/L (98-108); Cholesterol 163 mg/dL (<=200); Globulin 2.4 g/dL (2.2-4.2); Glucose 135 mg/dL (70-99); Low Density Lipoprotein Calc. 83 mg/dL; Potassium 4.1 mmol/L (3.3-5.1); Triglycerides 262 mg/dL; Very Low Density Lipoprotein 52 mg/dL (5-40); cholesterol:hdl ratio screen 4.45
== END | disposition home or self-care (01) ==
LOC: MTLAB 09:27
PROVIDERS: PCP Family Medicine; Referring Provider Family Medicine; Visit Provider Family Medicine
DX: Z95.5 Presence of coronary angioplasty implant and graft (principal)
CPT/HCPCS: 36415; 80053; 80061